=== PATIENT | female | born 1960 ===

== ENCOUNTER → 2019-12-01 08:59 | Outpatient (REF) | payer OTHER, SELFPAY | LOC: HO.SL 08:59 | PROVIDERS: PCP Internal Medicine Geriatric Medicine; Visit Provider Internal Medicine Geriatric Medicine | DX: I10 Essential (primary) hypertension (principal); R06.83 Snoring; R53.83 Other fatigue | CPT/HCPCS: 95806 ==

== ENCOUNTER 2019-12-20 11:23 | Outpatient (REF) | payer OTHER, SELFPAY ==
--- NOTE | 2019-12-20 11:26 | XR_ITS ---
EXAMINATION: XR KNEE AP STANDING CLINICAL INFORMATION: Knee pain. Bilateral arthritis. COMPARISON: Previous x-ray August 2018 TECHNIQUE: AP bilateral standing view of the knees was obtained. FINDINGS: Right: Bone alignment is normal. There is medial femoral tibial joint space narrowing. No fracture or dislocation is seen. Left: Bone alignment is normal. There is a cortical defect of the medial femoral condyle similar to previous exam. There is mild medial femoral tibial joint space narrowing. No fracture or dislocation is seen. There is no change from 2019 exam. XR/XR knee standing BI IMPRESSION: Right: Medial femoral tibial joint space narrowing. Left: Small cortical defect of the medial femoral condyle and mild medial femoral tibial joint space narrowing.
== END 2019-12-20 11:24 | disposition home or self-care (01) ==
LOC: HO.HOSX 11:23
PROVIDERS: PCP Internal Medicine Geriatric Medicine; Referring Provider Internal Medicine Geriatric Medicine; Visit Provider Orthopaedic Surgery
DX: M17.0 Bilateral primary osteoarthritis of knee (principal)
CPT/HCPCS: 20610; 73565; 99212; J1100

== ENCOUNTER 2019-12-24 09:36 | Outpatient (REF) | payer OTHER, SELFPAY ==
[2019-12-24 09:48] LABS: MANUAL DIFF FLAG NO
[2019-12-24 09:50] LABS: Basophils Absolute Auto 0.1 X10*3/uL (0.0-0.2); Basophils Percent Auto 0.5 % (0-2); Eosinophils Absolute Auto 0.2 X10*3/uL (0.0-0.4); Eosinophils Percent Auto 1.6 % (0-4); Hematocrit 45.1 % (37-47); Hemoglobin 14.6 g/dl (12.0-16.0); Imm Gran Abs Auto 0.03 X10*3/uL (0.00-0.03); Imm Gran Pct Auto 0.3 % (0.0-0.4); Lymphocytes Absolute Auto 3.7 X10*3/uL (1.2-4.9); Lymphocytes Percent Auto 33.3 % (20-40); Mean Corpuscular HGB Conc 32.4 g/dl (31.0-35.0); Mean Corpuscular Hemoglobin 28.8 pg (27.0-33.0); Mean Platelet Volume 10.8 fL (9.4-12.3); Monocytes Absolute Auto 0.7 X10*3/uL (0.1-1.2); Neutrophils Absolute Auto 6.4 X10*3/uL (2.0-8.3); Neutrophils Percent Auto 58.3 % (45-73); Platelet Count 307 X10*3/uL (160-400); Red Blood Count 5.07 X10*6/uL (4.20-5.50); Red Cell Distribution Width 15.7 % (11.0-16.0)
== END 2019-12-24 09:37 | disposition home or self-care (01) ==
LOC: HO.BBR 09:36
PROVIDERS: Visit Provider Internal Medicine Medical Oncology
DX: D75.1 Secondary polycythemia (principal)
CPT/HCPCS: 36415; 85025

== ENCOUNTER → 2019-12-29 14:35 | Outpatient (BNVA) | payer OTHER, SELFPAY | PROVIDERS: PCP Internal Medicine Geriatric Medicine; Referring Provider Internal Medicine Geriatric Medicine; Visit Provider Surgery | DX: Z01.818 Encounter for other preprocedural examination (principal) | CPT/HCPCS: 99202 ==

== ENCOUNTER 2020-01-05 09:03 | Outpatient (REF) | payer OTHER, SELFPAY ==
--- NOTE | 2020-01-05 09:08 | MM_ITS ---
EXAMINATION: MM SCREENING DIGITAL BREAST TOMOSYNTHESIS, BILATERAL CLINICAL INFORMATION: Screening. Asymptomatic. No prior breast surgery. The lifetime risk of breast cancer based on the Tyrer-Cuzick Model is 7%. COMPARISON: Mammography: 12/29/2018, 11/27/2017, 11/08/2016, 12/27/2015. TECHNIQUE: Digital breast tomosynthesis is performed in both the craniocaudal and mediolateral oblique views along with computer-aided detection (CAD). Synthesized 2D images are generated from the tomosynthesis. FINDINGS: The breasts are heterogeneously dense, which may obscure small masses (ACR BI-RADS breast composition Category c). Left breast shows no interval mass or architectural abnormality. There are scattered bilateral benign round and some vascular calcifications again seen. The bilateral axilla and skin contours are unremarkable. There is question of architectural distortion mid 9:00 right breast best appreciated on CC tomography. Patient will be recalled for additional imaging. MM/MM tomosynthesis screening BI IMPRESSION: 1. Right: Question of architectural distortion mid 9:00 position. 2. Left: No mammographic evidence of malignancy. ASSESSMENT: BI-RADS 0: Incomplete - Need Additional Imaging Evaluation RECOMMENDATION: 1. Additional views of the right breast (3D spot CC, 3D rolled CC x 2, 3D spot ML). 2. Targeted ultrasound if warranted after review of the additional views. 3. Radiology department staff will contact the patient for additional imaging. This patient's information was entered into a reminder system with a target due date for their next mammogram.
== END 2020-01-05 09:04 | disposition home or self-care (01) ==
LOC: HO.MAMMO 09:03
PROVIDERS: PCP Internal Medicine Geriatric Medicine; Visit Provider Internal Medicine Geriatric Medicine
DX: Z12.31 Encounter for screening mammogram for malignant neoplasm of breast (principal)
CPT/HCPCS: 77063; 77067

== ENCOUNTER 2020-01-21 06:38 | Day surgery (SDC) | payer OTHER, SELFPAY ==
[2020-01-17 15:16] VITALS: BMI 34.3
--- NOTE | 2020-01-20 10:15 | HO.ANESPROP2 ---
Documented by User: Blanka Hernández 01/20/20 10:16 HPI - Anesthesia Eval Consult details Narrative: 59yo F for Colonoscopy PMFSH Past Medical History Medical History Bilateral primary osteoarthritis of knee Blind Colon cancer screening Erythrocytosis GERD (gastroesophageal reflux disease) Hypertension Hypothyroidism Lumbar facet arthropathy Retinitis pigmentosa Family History Family History Father Throat cancer Mother No problems noted. 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 DIRECTOR) Alcohol intake: never Smoking Status: Never smoker Use of substances other than those prescribed or required for medical reasons: No Advance Directives: No Advance Directives Information Provided: No Advance Directives on File: No Current occupational status: disabled Current occupation: Right Handed Meds Allergies Allergy/AdvReac Type Severity Reaction Status Date / Time No Known Allergies Allergy Verified 01/17/20 15:11 Home Medications Medication Instructions Recorded Confirmed Type chlorthalidone 25 mg tablet 25 mg PO DAILY 12/17/19 01/17/20 History gabapentin 600 mg tablet 600 mg PO TID tab 12/17/19 01/17/20 History olopatadine 0.1 % eye drops 1 drp OPHTHALMIC (EYE) BID 12/17/19 01/17/20 History trazodone 100 mg tablet 100 mg PO DAILY 12/17/19 01/17/20 History albuterol sulfate 1 vial INHALATION QID 01/17/20 01/17/20 History fluticasone propionate [Flovent 1 puff INHALATION BID 01/17/20 01/17/20 History HFA] levothyroxine 1 tab PO DAILY 01/17/20 01/17/20 History montelukast 1 tab PO BEDTIME 01/17/20 01/17/20 History omeprazole 1 cap PO DAILY 01/17/20 01/17/20 History Exam Exam Date and Time: January 20, 2020 1015 Height,Weight and Vital Signs: Height 4 ft 11 in Weight 77.111 kg Assessment and Plan Assessment Anesthesia Assessment: Chart Reviewed Documented by User: Taylor Ash 01/21/20 07:26 PMFSH Past Medical History Medical History Bilateral primary osteoarthritis of knee Blind Colon cancer screening Erythrocytosis GERD (gastroesophageal reflux disease) Hypertension Hypothyroidism Lumbar facet arthropathy Retinitis pigmentosa Family History Family History Father Throat cancer Mother No problems noted. 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 DIRECTOR) Alcohol intake: never Smoking Status: Never smoker Use of substances other than those prescribed or required for medical reasons: No Advance Directives: No Advance Directives Information Provided: No Advance Directives on File: No Current occupational status: disabled Current occupation: Right Handed Meds Allergies Allergy/AdvReac Type Severity Reaction Status Date / Time No Known Allergies Allergy Verified 01/17/20 15:11 Home Medications Medication Instructions Recorded Confirmed Type chlorthalidone 25 mg tablet 25 mg PO DAILY 12/17/19 01/17/20 History gabapentin 600 mg tablet 600 mg PO TID tab 12/17/19 01/17/20 History olopatadine 0.1 % eye drops 1 drp OPHTHALMIC (EYE) BID 12/17/19 01/17/20 History trazodone 100 mg tablet 100 mg PO DAILY 12/17/19 01/17/20 History albuterol sulfate 1 vial INHALATION QID 01/17/20 01/17/20 History fluticasone propionate [Flovent 1 puff INHALATION BID 01/17/20 01/17/20 History HFA] levothyroxine 1 tab PO DAILY 01/17/20 01/17/20 History montelukast 1 tab PO BEDTIME 01/17/20 01/17/20 History omeprazole 1 cap PO DAILY 01/17/20 01/17/20 History Exam Airway Mallampati Class: II TM Dist: >3cm Neck ROM: Full Assessment and Plan Assessment Anesthesia Assessment: Anesthesia Plan Discussed and Chart Reviewed Final Anesthetic Review NPO: Yes ASA Class: II Final Preanesthetic Review: No Changes in Pt Med Stat, Meds/Allgs Chart Reviewed, Consent Obtained/Reviewed and Anes Risks/Benef Reviewed Patient Risk: Low Procedure Risk: Low Assessment/Block/Sedation in SS: Assess/Block/Sedation-SS Anesthetic Plan Anesthetic Plan: MAC: Disposition: Standard PACU
[2020-01-21 07:04] VITALS: BP 149/71; PULSE 88; RESP 18; TEMP 36.7; O2SAT 97
[2020-01-21] MEDS: Lactated Ringers 1,000 ML 100 ML IVCONT (07:04)
--- NOTE | 2020-01-21 07:22 | MHC.SHP ---
Pre-Procedural Eval Section B Chief Complaint: Screening Allergies: Allergies Allergy/AdvReac Type Severity Reaction Status Date / Time No Known Allergies Allergy Verified 01/17/20 15:11 Plan Patient has been examined and remains a candidate for the planned procedure
[2020-01-21 07:58] VITALS: BP 121/63; PULSE 89; RESP 16; TEMP 37.3; O2SAT 96
--- NOTE | 2020-01-21 08:01 | PM.OP ---
Brief Operative Note Date of Service: 01/21/20 Pre-op diagnosis: colon ca screen Post-op diagnosis: other (diverticulosis, small polyps, hemorrhoids) Surgeon: Shyam Liz MD Anesthesia: MAC Estimated blood loss (mL): 0 Pathology: other (polyps) Condition: stable Disposition: PACU
[2020-01-21 08:12] VITALS: BP 137/74; PULSE 80; RESP 16; TEMP 36.3; O2SAT 96
--- NOTE | 2020-01-21 08:29 | HO.POSTANES ---
Post Anesthesia Evaluation Post Anesthesia Evaluation Vital Signs: Vital Signs Temp Pulse Resp BP Pulse Ox 01/21/20 08:12 97.3 F 80 16 137/74 96 01/21/20 07:58 99.1 F 89 16 121/63 96 01/21/20 07:04 98.0 F 88 18 149/71 H 97 Anesthesia: Monitored Mental Status: Awake Pain Control: Satisfactory Nausea/Vomiting: None Hydration: Adequate Anesthesia-Related Issues: No Anes. Related Issues
--- NOTE | 2020-01-21 08:54 | OP_ITS ---
SURGEON: Shyam Liz MD INDICATIONS: The patient is a 59-year-old female, referred for screening colonoscopy. She understood the technique of the procedure. She is aware of the risks, benefits, and alternatives. Her last colonoscopy was 10 years ago. PREOPERATIVE DIAGNOSIS: Colon cancer screening. POSTOPERATIVE DIAGNOSIS: PROCEDURE PERFORMED: Colonoscopy, polypectomy using cold forceps x3. ESTIMATED BLOOD LOSS: COMPLICATIONS: ANESTHESIA: ASSISTANTS: SPECIMENS: POSTOPERATIVE DIAGNOSES: 1. Occasional diverticula in the sigmoid. 2. Three small polyps at level 13 to 15 cm. 3. Internal hemorrhoids. DESCRIPTION OF PROCEDURE: She was brought to the operating room, placed in left lateral decubitus position under monitored anesthesia care. A full digital rectal exam was done. She had some palpable internal hemorrhoidal columns. The tip of the Olympus colonoscope was introduced gently through the anal orifice and advanced with insufflation all the way to the cecum. The cecum was intubated. The cecum was identified by visualization of the ileocecal valve as well as the appendiceal orifice. The cecal mucosa was unremarkable. The scope was gradually withdrawn with careful examination of the entire colonic mucosa being done with scope withdrawal. The patient had good bowel prep, so it was unlikely that any lesion may have been missed. There was occasional diverticula in the sigmoid. There was note of three small polyps about 2 to 3 mm in size seen at level 13 to 15 cm. All of these were removed using multiple bites of cold forceps. The rectum was reached and this was unremarkable. The anal canal revealed prominent internal and external hemorrhoids. The scope was then withdrawn completely with de-sufflation. The patient tolerated the procedure well. There were no complications noted. Depending on the path report, I would probably recommend another colonoscopy in the next 10 years. MD NOEL Alcocer/BRYCE / [id number]
== END 2020-01-21 08:30 | disposition home or self-care (01) ==
PROVIDERS: PCP Internal Medicine Geriatric Medicine; Visit Provider Surgery
PROC: 0DJD8ZZ Inspection of Lower Intestinal Tract, Via Natural or Artificial Opening Endoscopic (ICD-10-PCS; CPT 45378; principal; 2020-01-21 07:30)
DX: Z12.11 Encounter for screening for malignant neoplasm of colon (principal); K63.5 Polyp of colon; K57.30 Diverticulosis of large intestine without perforation or abscess without bleeding; K64.8 Other hemorrhoids
CPT/HCPCS: 45380; 88305; J2405; J3010

== ENCOUNTER 2020-01-26 14:16 | Outpatient (REF) | payer OTHER, SELFPAY ==
--- NOTE | 2020-01-26 14:23 | MM_ITS ---
EXAMINATION: MM DIAGNOSTIC DIGITAL BREAST TOMOSYNTHESIS, RIGHT US DIAGNOSTIC ULTRASOUND BREAST, RIGHT CLINICAL INFORMATION: Recall from screening for question of architectural distortion mid 3:00 right breast. COMPARISON: Mammography: 01/05/2020, 12/29/2018, 11/27/2017, and 11/08/2016, 12/27/2015, 12/02/2014 TECHNIQUE: Digital breast tomosynthesis is performed. 2D images are generated from the tomosynthesis. The following views are obtained: Spot CC, rolled CC x2, spot ML x2. Ultrasound right breast is targeted to the upper inner breast using grayscale imaging and color Doppler without and with harmonics. FINDINGS: The breasts are heterogeneously dense, which may obscure small masses (ACR BI-RADS breast composition Category c). The additional views confirm area of architectural changes medial right breast between 1:00 and 3:00 position. Ultrasound demonstrates scattered shadowing upper inner right breast without dominant focality to confirm exact site of mammographic concern. Results are discussed with the patient and her daughter at time of visit. Patient provides no prior history right breast surgery or significant right breast trauma. The right breast findings are suspicious. Differential considerations include radial scar as well as malignancy. 3-D stereotactic sampling is recommended. MM/MM tomosynthesis added views R IMPRESSION: 1. Persistent architectural abnormality upper inner right breast on additional mammographic views. 2. Scattered shadowing right breast without definitive focality to allow for reliable ultrasound correlate. ASSESSMENT: BI-RADS 4: Suspicious RECOMMENDATION: 3-D stereotactic biopsy right breast.
--- NOTE | 2020-01-26 14:26 | US_ITS ---
EXAMINATION: MM DIAGNOSTIC DIGITAL BREAST TOMOSYNTHESIS, RIGHT US DIAGNOSTIC ULTRASOUND BREAST, RIGHT CLINICAL INFORMATION: Recall from screening for question of architectural distortion mid 3:00 right breast. COMPARISON: Mammography: 01/05/2020, 12/29/2018, 11/27/2017, and 11/08/2016, 12/27/2015, 12/02/2014 TECHNIQUE: Digital breast tomosynthesis is performed. 2D images are generated from the tomosynthesis. The following views are obtained: Spot CC, rolled CC x2, spot ML x2. Ultrasound right breast is targeted to the upper inner breast using grayscale imaging and color Doppler without and with harmonics. FINDINGS: The breasts are heterogeneously dense, which may obscure small masses (ACR BI-RADS breast composition Category c). The additional views confirm area of architectural changes medial right breast between 1:00 and 3:00 position. Ultrasound demonstrates scattered shadowing upper inner right breast without dominant focality to confirm exact site of mammographic concern. Results are discussed with the patient and her daughter at time of visit. Patient provides no prior history right breast surgery or significant right breast trauma. The right breast findings are suspicious. Differential considerations include radial scar as well as malignancy. 3-D stereotactic sampling is recommended. US/US breast RT limited IMPRESSION: 1. Persistent architectural abnormality upper inner right breast on additional mammographic views. 2. Scattered shadowing right breast without definitive focality to allow for reliable ultrasound correlate. ASSESSMENT: BI-RADS 4: Suspicious RECOMMENDATION: 3-D stereotactic biopsy right breast.
== END 2020-01-26 14:17 | disposition home or self-care (01) ==
LOC: HO.MAMMO 14:16
PROVIDERS: PCP Internal Medicine Geriatric Medicine; Visit Provider Internal Medicine Geriatric Medicine
DX: N64.89 Other specified disorders of breast (principal)
CPT/HCPCS: 76642; 77061; 77065

== ENCOUNTER → 2020-02-02 08:59 | Outpatient (BNVA) | payer OTHER, SELFPAY | PROVIDERS: PCP Internal Medicine Geriatric Medicine; Visit Provider Surgery | DX: K63.5 Polyp of colon (principal); K57.90 Diverticulosis of intestine, part unspecified, without perforation or abscess without bleeding; K64.9 Unspecified hemorrhoids; Z98.890 Other specified postprocedural states | CPT/HCPCS: 99212 ==

== ENCOUNTER → 2020-02-15 14:31 | Outpatient (BNVA) | payer OTHER, SELFPAY | PROVIDERS: PCP Internal Medicine Geriatric Medicine; Visit Provider Surgery | DX: R92.8 Other abnormal and inconclusive findings on diagnostic imaging of breast (principal) | CPT/HCPCS: 99212 ==

== ENCOUNTER 2020-02-16 10:31 | Outpatient (REF) | payer OTHER, SELFPAY ==
--- NOTE | 2020-02-16 10:36 | MM_ITS ---
EXAMINATION: STEREOTACTIC TOMOSYNTHESIS-GUIDED VACUUM-ASSISTED BREAST BIOPSY, RIGHT SPECIMEN RADIOGRAPH, RIGHT POST PROCEDURE DIGITAL BREAST TOMOSYNTHESIS, RIGHT CLINICAL INFORMATION: Subtle architectural abnormality upper inner right breast. COMPARISON: Mammography 01/05/2020, 01/26/2020, targeted right breast ultrasound 01/26/2020. TECHNIQUE/PROCEDURE: Informed consent was obtained from the patient after discussion of the benefits, risks, and alternatives to biopsy today. Patient appeared to understand. Gave opportunity for questions. Patient signed consent form. BIOPSY TABLE: [employer]one Biopsy System. LESION: Subtle architectural distortion upper inner right breast. LOCAL ANESTHESIA: 8 mL 1% lidocaine; 10 mL 1% lidocaine with epinephrine. DERMATOTOMY: Single skin gary dermatotomy performed. NEEDLE: [employer] 9-gauge vacuum assisted core biopsy device. APPROACH: craniocaudal. TARGETING: Combination of digital breast tomosynthesis and stereotactic digital mammography used for targeting. CORES: 8. CLIP: [employer] T-shaped marker. SPECIMEN RADIOGRAPH: Specimen radiograph is taken in separate room using digital mammography. There are scattered fibroglandular densities in the cores. POST PROCEDURE UNILATERAL DIGITAL MAMMOGRAM: The post biopsy mammogram is performed in separate room using separate digital breast tomosynthesis equipment from the biopsy procedure. CC and ML views are obtained. Synthesized 2-D images are generated from the tomography. The breasts are heterogeneously dense, which may obscure small masses (breast composition category: c). The clip marker is in expected position. No gross hematoma. The patient tolerated the procedure well. No immediate complications. Home instructions reviewed with the patient. Final pathology results are pending. MM/MM stereotactic biopsy RT IMPRESSION: 1. Digital tomosynthesis-guided core biopsy right breast with clip placement. 2. Specimen radiograph taken and post procedure mammogram. There is satisfactory positioning of the biopsy clip. 3. Final pathology results pending. An addendum report will be issued.
== END 2020-02-16 10:32 | disposition home or self-care (01) ==
LOC: HO.MAMMO 10:31
PROVIDERS: PCP Internal Medicine Geriatric Medicine; Visit Provider Surgery
DX: R92.8 Other abnormal and inconclusive findings on diagnostic imaging of breast (principal)
CPT/HCPCS: 19081; 88305; 88341; 88342; 88360; A4648

== ENCOUNTER → 2020-02-24 13:47 | Outpatient (BNVA) | payer OTHER, SELFPAY ==
--- NOTE | 2020-02-28 14:43 | PM.EVENT ---
Event Note Date of Service: 02/28/20 Event Note: Her daughter, Angelica Carver, called today to let us know that her mother has decided that she would prefer to undergo a mastectomy. She does not want to have to undergo radiation therapy after surgery. Also, she prefers to go home on the day of surgery if at all possible. Her daughter, Ms. Carver, is able to assist with dressing changes and drain management. We will adjust the surgical booking to a right total mastectomy and right axillary sentinel lymph node biopsy.
== END ==
PROVIDERS: PCP Internal Medicine Geriatric Medicine; Visit Provider Surgery
DX: C50.911 Malignant neoplasm of unspecified site of right female breast (principal)
CPT/HCPCS: 99212

== ENCOUNTER 2020-03-02 10:33 | Day surgery (SDC) | payer OTHER, SELFPAY ==
[2020-03-01 10:21] VITALS: BMI 35.6
--- NOTE | 2020-03-01 13:23 | HO.ANESPROP2 ---
Documented by User: Blanka Hernández 03/01/20 13:26 HPI - Anesthesia Eval Consult details Narrative: 59yo F for R mastectomy, sentinal node PMFSH Past Medical History Medical History Bilateral primary osteoarthritis of knee Blind Colon cancer screening Diverticulosis Erythrocytosis GERD (gastroesophageal reflux disease) Hemorrhoids Hyperplastic colon polyp Hypertension Hypothyroidism Lumbar facet arthropathy Retinitis pigmentosa Family History Family History Father Throat cancer Mother No problems noted. Brother Gastric cancer Brother Kidney cancer, primary, with metastasis from kidney to other site Surgical History Surgical History Hx of colonoscopy Social History Social History Household Members: None Alcohol intake: never Smoking Status: Never smoker Second Hand Smoke Exposure: No Use of substances other than those prescribed or required for medical reasons: No Advance Directives: No Advance Directives Information Provided: No Advance Directives on File: No Current occupational status: disabled Current occupation: Right Handed Meds Allergies Allergy/AdvReac Type Severity Reaction Status Date / Time No Known Allergies Allergy Verified 02/24/20 13:56 Home Medications Medication Instructions Recorded Confirmed Type chlorthalidone 25 mg tablet 25 mg PO DAILY 12/17/19 02/24/20 History gabapentin 600 mg tablet 600 mg PO TID tab 12/17/19 02/24/20 History olopatadine 0.1 % eye drops 1 drp OPHTHALMIC (EYE) BID 12/17/19 02/24/20 History trazodone 100 mg tablet 100 mg PO DAILY 12/17/19 02/24/20 History albuterol sulfate 1 vial INHALATION QID 01/17/20 02/24/20 History fluticasone propionate [Flovent 1 puff INHALATION BID 01/17/20 02/24/20 History HFA] levothyroxine 1 tab PO DAILY 01/17/20 02/24/20 History montelukast 1 tab PO BEDTIME 01/17/20 02/24/20 History omeprazole 1 cap PO DAILY 01/17/20 02/24/20 History Exam Exam Date and Time: March 01, 2020 1323 Height,Weight and Vital Signs: Height 4 ft 11 in Weight 80 kg Pertinent Lab Results Pertinent Lab Results: Laboratory Tests 12/24/19 09:45 WBC 11.0 H Hgb 14.6 Hct 45.1 Plt Count 307 Assessment and Plan Assessment Anesthesia Assessment: Chart Reviewed Documented by User: Callum Muir MD 03/02/20 13:39 PMFSH Past Medical History Medical History Bilateral primary osteoarthritis of knee Blind Colon cancer screening Diverticulosis Erythrocytosis GERD (gastroesophageal reflux disease) Hemorrhoids Hyperplastic colon polyp Hypertension Hypothyroidism Lumbar facet arthropathy Retinitis pigmentosa Family History Family History Father Throat cancer Mother No problems noted. Brother Gastric cancer Brother Kidney cancer, primary, with metastasis from kidney to other site Surgical History Surgical History Hx of colonoscopy Social History Social History Household Members: None Alcohol intake: never Smoking Status: Never smoker Second Hand Smoke Exposure: No Use of substances other than those prescribed or required for medical reasons: No Advance Directives: No Advance Directives Information Provided: No Advance Directives on File: No Current occupational status: disabled Current occupation: Right Handed Meds Allergies Allergy/AdvReac Type Severity Reaction Status Date / Time No Known Allergies Allergy Verified 02/24/20 13:56 Home Medications Medication Instructions Recorded Confirmed Type chlorthalidone 25 mg tablet 25 mg PO DAILY 12/17/19 02/24/20 History gabapentin 600 mg tablet 600 mg PO TID tab 12/17/19 02/24/20 History olopatadine 0.1 % eye drops 1 drp OPHTHALMIC (EYE) BID 12/17/19 02/24/20 History trazodone 100 mg tablet 100 mg PO DAILY 12/17/19 02/24/20 History albuterol sulfate 1 vial INHALATION QID 01/17/20 02/24/20 History fluticasone propionate [Flovent 1 puff INHALATION BID 01/17/20 02/24/20 History HFA] levothyroxine 1 tab PO DAILY 01/17/20 02/24/20 History montelukast 1 tab PO BEDTIME 01/17/20 02/24/20 History omeprazole 1 cap PO DAILY 01/17/20 02/24/20 History Exam Airway Mallampati Class: II TM Dist: >3cm Neck ROM: Full Loose/Missing/Broken Teeth: Yes (Few molars missing) Heart: RRR Lungs: NL Other: AO Assessment and Plan Assessment Anesthesia Assessment: Anesthesia Plan Discussed and Chart Reviewed Final Anesthetic Review NPO: Yes ASA Class: III Final Preanesthetic Review: No Changes in Pt Med Stat, Meds/Allgs Chart Reviewed, Consent Obtained/Reviewed and Anes Risks/Benef Reviewed Patient Risk: Intermediate Procedure Risk: Low Anesthetic Plan Anesthetic Plan: GA and Regional Block Disposition: Standard PACU
[2020-03-02] VITALS (10 sets, daily range): BP systolic 115–146; BP diastolic 60–80; PULSE 80–101; RESP 16–19; TEMP 36.5–36.7; O2SAT 95–100
--- NOTE | 2020-03-02 | NM_ITS ---
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 COMPARISON: Mammography 01/26/2020, stereotactic biopsy 02/16/2020 TECHNIQUE: Informed consent was obtained prior to the exam. Lidocaine gel administered to areola within 60 minutes of the procedure. Technetium 99m-Lymphoseek 0.5 mCi was divided into 4 syringes with intradermal administration at 4 quadrants around the areola. The patient tolerated the procedure well. Imaging is performed in multiple views at 20 minutes and 50 minutes postinjection. FINDINGS: There is strong activity around the areola. There is no activity seen in the axilla or internal mammary chain. NM/NM sentinel node w imaging IMPRESSION: Status post breast radionuclide lymphoscintigraphy for sentinel lymph node mapping. No patricia activity demonstrated 50 minutes postinjection.
[2020-03-02] MEDS: Lactated Ringers 1,000 ML 100 ML IVCONT (11:22)
[2020-03-02] MEDS: ceFAZolin Sodium/Dextrose,Iso 2 GM/50 ML PIGGYBACK IV (11:22)
[2020-03-02] MEDS: Lidocaine 4 % Cream KIT 1 APPL TOPICAL (11:23)
--- NOTE | 2020-03-02 13:41 | MHC.SHP ---
Pre-Procedural Eval Section A The patient is an INPATIENT: No Changes since office visit: No Cold of Flu in the past 2 weeks, No New Medical Problems and No Changes in Medication The History & Physical has been completed within 30 days and I have reviewed it.: Yes Section B Chief Complaint: Cancer of right breast Allergies: Allergies Allergy/AdvReac Type Severity Reaction Status Date / Time No Known Allergies Allergy Verified 02/24/20 13:56 Plan I have reviewed the history and physical and performed a pertinent physical examination on my patient. No changes have occurred unless specified.
[2020-03-02] MEDS: ondansetron HCL 4 MG/2 ML VIAL IVPUSH (16:45)
--- NOTE | 2020-03-02 17:58 | P.OP_ITS ---
Operative Note Operative Note Date of Service: 03/02/20 Narrative: Preoperative diagnosis: Right breast carcinoma Postoperative diagnosis: Same Procedure: Right total mastectomy and right axillary sentinel node biopsy Anesthesia: General laryngeal mask and pectoral block Dielectric Press Operator: Sunni Smith PA-C Estimated blood loss: 75 cc Urine output: 200 cc Specimen: A-right axillary sentinel node 1.; B-right breast Drains: 1 10 mm Jaret-Bettencourt Immediate complications: None Indications Ms. Saravia is a 59-year-old who has a recent diagnosis of infiltrating ductal carcinoma of the right breast, clinical stage I. After reviewing treatment options, she elected to proceed with right total mastectomy and right axillary sentinel node biopsy with axillary dissection if needed. Procedure in detail: With the patient in the supine position after induction of adequate general anesthesia, time-out procedure was performed. She had undergone injection of radioisotope and scanning preoperatively. No activity was demonstrated on pre operative scanning. Injection of Lymphazurin was therefore planned. The right breast, axilla, surrounding chest wall, shoulder and upper arm were prepped with ChloraPrep and were draped sterilely. Anatomic landmarks and incision lines were marked. The probe was then employed to scan the axilla. No areas of significantly elevated count were identified. Lymphazurin injection was carried out. 1 cc was injected into the it subcutaneous tissues at the areolar border at 06:00 o'clock, 09:00 o'clock and 12:00 o'clock. The breast was massaged for 3 minutes. An elliptical incision was then made centrally in the right breast with transverse orientation and was carried into the subcutaneous tissues. Skin flaps were raised circumferentially. Bleeding was controlled using the electrosurgical pencil and 3-0 Polysorb ties. Dissection was carried to the sternum medially, the inferior margin of the clavicle superiorly just below the inframammary fold inferiorly and to the latissimus dorsi laterally. The axillary tissues were then rescanned with the probe. An area of significantly elevated count was identified. Using a technique of alternating scanning and dissection, a blue lymph node with a blue lymphatic leading to it was identified. This lymph node was excised and had a count of 1371. It was sent for touch prep. Touch prep was benign. Rescanning of the axilla did not reveal any additional areas with significantly elevated count and no additional blue lymphatics were noted at the base of the axilla. The breast was then elevated from the chest wall moving from medial to lateral. Again, bleeding was controlled using the electrosurgical pencil and 3-0 Polysorb ties. The breast was marked for orientation and was sent for permanent analysis. The wound was copiously irrigated with saline solution. Minimal bleeding was noted along the chest wall and flaps. This was controlled using the electrosurgical pencil. A 10 mm flat drain was then brought out inferolaterally and was sutured in place with 3 0 nylon. It was placed across the chest wall. The midpoint of the incision was then reapproximated with a single suture of 2 0 Polysorb. Laterally, there was some redundant tissue and this was trimmed using ?fish tail? technique. Bleeding was controlled using the electrosurgical pencil. Subcutaneous tissues were then reapproximated with interrupted sutures of 2 0 Polysorb. Skin was closed using running subcuticular sutures of 4-0 Polysorb. Steri-Strips and dry sterile dressings were applied followed by a breast binder. Sponge and instrument counts were correct. She tolerated the procedure well and was transported to the recovery room in stable condition. There were no immediate complications. Breast [place] Node Biopsy Substrate(s) used for sentinel node biopsy in the non-neoadjuvant setting: Dye and Radiotracer All colored nodes or non-colored nodes present at the end of a dye filled lymphatic channel were removed, if dye was used as the substrate for localization: Yes All significantly radioactive nodes were removed, if radionuclide was used as the substrate for localization: Yes All palpably suspicious nodes were removed, if present: N/A (None present) If clips were placed in pathology-involved nodes, those nodes were identified and removed: N/A General Surg. - Synoptic Notes Breast [place] Node Biopsy Substrate(s) used for sentinel node biopsy in the non-neoadjuvant setting: Dye and Radiotracer All colored nodes or non-colored nodes present at the end of a dye filled lymphatic channel were removed, if dye was used as the substrate for localization: Yes All significantly radioactive nodes were removed, if radionuclide was used as the substrate for localization: Yes All palpably suspicious nodes were removed, if present: N/A (None present) If clips were placed in pathology-involved nodes, those nodes were identified and removed: N/A
== END 2020-03-02 12:00 | disposition home or self-care (01) ==
PROVIDERS: PCP Internal Medicine Geriatric Medicine; Visit Provider Surgery
PROC: (CPT 19303; 2020-03-02 13:00)
DX: C50.911 Malignant neoplasm of unspecified site of right female breast (principal); Z17.0 Estrogen receptor positive status [ER+]; I10 Essential (primary) hypertension; Z79.899 Other long term (current) drug therapy
CPT/HCPCS: 19303; 38525; 38900; 78195; 88307; 88309; 88333; 88341; 88342; A9520; J0690; J1100; J1170; J2250; J2405; J3010; Q9968

== ENCOUNTER → 2020-03-08 13:58 | Outpatient (BNVA) | payer OTHER, SELFPAY | PROVIDERS: PCP Internal Medicine Geriatric Medicine; Visit Provider Surgery | DX: C50.911 Malignant neoplasm of unspecified site of right female breast (principal) | CPT/HCPCS: 99212 ==

== ENCOUNTER → 2020-03-22 15:17 | Outpatient (BNVA) | payer OTHER, SELFPAY | PROVIDERS: PCP Internal Medicine Geriatric Medicine; Visit Provider Surgery | DX: C50.911 Malignant neoplasm of unspecified site of right female breast (principal) | CPT/HCPCS: 99212 ==

== ENCOUNTER 2020-04-06 14:55 | Outpatient (REF) | payer OTHER, SELFPAY ==
--- NOTE | ~2020-04-06 | MM_ITS ---
EXAMINATION: BONE DENSITOMETRY CLINICAL INDICATION: Osteopenia. COMPARISON: This is the patient's baseline examination. TECHNIQUE: Using a Triloq DXA System (software version: 13.1) manufactured by [employer], dual-energy x-ray absorptiometry was performed of the lumbar spine and left hip. The images are of good technical quality. Summary results are attached. FINDINGS: AP SPINE L2-L3 (excluding L1 and L4): The data of L1-L4 has been changed to exclude the L1 and L4 vertebral bodies, because degenerative sclerosis at these levels may cause overestimation of lumbar spine density. BMD 1.074 g/cm2, Z-score -0.2, T-score -1.0, normal. LEFT FEMUR, NECK: BMD 0.849 g/cm2, Z-score -0.3, T-score -1.4, osteopenia. LEFT FEMUR, TOTAL: BMD 1.016 g/cm2, Z-score 0.8, T-score 0.1, normal. IDENTIFIED RISK FACTORS: Menopause. HISTORY OF FRACTURE: None listed. MEDICATIONS: None listed. MM/XR DEXA axial skeleton IMPRESSION: 1. DIAGNOSIS: Osteopenia based on the lowest T-score value of -1.4 in the femoral neck applying World Health Organization criteria. 2. 10-YEAR FRACTURE RISK PREDICTION, FRAX: Major osteoporotic fracture (clinical spine, forearm, hip or shoulder) 4.1%. Hip fracture 0.3%. 3. Treatment Recommendations: NOF guidelines recommend consideration for treatment in postmenopausal women and men age 50 and older presenting with the following: -A hip or vertebral (clinical or morphometric) fracture. -T-score less than or equal to -2.5 at the femoral neck or spine after appropriate evaluation to exclude secondary causes. -Low bone mass at the hip or spine and a 10-year fracture probability by FRAX of greater than or equal to 3% for hip fracture or greater than or equal to 20% for major osteoporotic fracture based on the [place] adapted WHO algorithm. 4. Other Recommendations: All treatment decisions require clinical judgment and consideration of individual patient factors, including patient preferences, comorbidities, previous drug use, risk factors not captured in the FRAX model (e.g. frailty, falls, vitamin D deficiency, increased bone turnover, interval significant decline in bone density) and possible under or overestimation of fracture risk by FRAX. Additional medical evaluation for secondary cause of low bone mineral density may be appropriate. FUTURE SCAN RECOMMENDATION: People with diagnosed cases of osteoporosis or at high risk for fracture should have regular bone mineral density tests. For patients eligible for Medicare, routine testing is allowed once every 2 years. The testing frequency can be increased to one year for patients who have rapidly progressing disease, those who are receiving or discontinuing medical therapy to restore bone mass, or have additional risk factors.
== END 2020-04-06 14:56 | disposition home or self-care (01) ==
LOC: HO.MAMMO 14:55
PROVIDERS: PCP Internal Medicine Geriatric Medicine; Visit Provider Internal Medicine Medical Oncology
DX: Z13.820 Encounter for screening for osteoporosis (principal); M85.80 Other specified disorders of bone density and structure, unspecified site; Z78.0 Asymptomatic menopausal state
CPT/HCPCS: 77080; 77081

== ENCOUNTER → 2020-04-14 14:30 | Outpatient (BNV) | payer OTHER, SELFPAY | PROVIDERS: PCP Internal Medicine Geriatric Medicine; Visit Provider Internal Medicine Medical Oncology | DX: C50.911 Malignant neoplasm of unspecified site of right female breast (principal) | CPT/HCPCS: 99213; 99214 ==

== ENCOUNTER → 2020-07-31 14:34 | Outpatient (BNVA) | payer OTHER, SELFPAY | PROVIDERS: PCP Internal Medicine Geriatric Medicine; Visit Provider Internal Medicine | DX: M47.817 Spondylosis without myelopathy or radiculopathy, lumbosacral region (principal); M17.0 Bilateral primary osteoarthritis of knee | CPT/HCPCS: 99202 ==

== ENCOUNTER 2020-08-25 15:52 | Outpatient (REF) | payer OTHER, SELFPAY ==
--- NOTE | ~2020-08-25 | MR_ITS ---
EXAMINATION: MR LUMBAR SPINE WITHOUT CONTRAST CLINICAL INFORMATION: 60-year-old with low back pain and bilateral sciatica. COMPARISON: 10/25/2015 MRI. TECHNIQUE: MRI of the lumbar spine was obtained using routine sequences without contrast. FINDINGS: Coronal Alignment: Normal. Sagittal Alignment: Normal. Lumbosacral Junction: Normal. Vertebral Bodies: Normal height. Bone Marrow: No significant marrow-replacing process or bone marrow edema. Conus Medullaris: Terminates at L2. Morphology and signal is normal. Intradural Nerve Roots: Within normal limits. L5-S1: Severe disc space height loss, disc desiccation, Schmorl's nodes and type II degenerative marrow signal changes along the endplates are stable. There is diffuse disc bulging with anterolateral spondylosis and posterolateral disc osteophyte complex on the right, similar in appearance to the previous exam with moderate bilateral facet arthropathy and mild ligamentum flavum thickening, unchanged in appearance. No significant canal stenosis. Mild right-sided neural foraminal stenosis is noted, stable in appearance without definite neural impingement. L4-L5: Moderate disc space height loss is noted, slightly progressed from previous exam. Diffuse disc bulging, asymmetric to the right is slightly more prominent on current study with [id number] flattening of the dural sac. Ligamentum flavum thickening is similar to the previous study with mild facet arthropathy, largely unchanged. There is mild narrowing of the subarticular zones bilaterally which has developed since the previous exam without significant central spinal canal stenosis. Disc bulging encroaches on the inferior neural foramina, asymmetric to the right without definite neural impingement and only minimal right-sided foraminal narrowing stable in appearance. L3-L4: Disc space height is well maintained, stable in appearance, with normal disc signal and contours. No significant disc bulge or herniation and no significant facet arthropathy, canal or neuroforaminal stenosis. L2-L3: Disc space height is stable in appearance with normal disc contour without disc bulge or herniation and no significant spondylosis, facet arthropathy, canal or neuroforaminal stenosis, unchanged. L1-L2: Disc space height is well maintained, stable in appearance. There is noted tiny central disc protrusion at this level is not currently visualized. No disc bulge or herniation and no significant facet arthrosis, spondylosis, canal or neuroforaminal stenosis. T12-L1: Abojladg-qh-tcefwp disc space height loss slightly progressed from previous exam, with Schmorl's nodes and type II degenerative marrow signal changes along the endplates, progressed from previous study. Mild anterior marginal spondylosis is slightly progressed. Mild posterior disc osteophyte complex is similar to the previous exam. Minor left-sided facet arthrosis at is noted. No significant canal or neuroforaminal stenosis. Paraspinal/Retroperitoneal: The paravertebral soft tissues appear unremarkable. MR/MR lumbar spine wo con IMPRESSION: 1. Severe discogenic degenerative change at L5-S1 with disc bulging and spondylosis with facet arthropathy, stable in appearance, with stable mild right-sided neural foraminal stenosis at this level. No definite neural impingement. 2. Slight progression of disc degenerative change at L4-L5, with more prominent disc bulging at this level asymmetric to the right, now with mild narrowing of the subarticular zones bilaterally at this level and stable facet arthropathy. Minimal right-sided neural foraminal narrowing. 3. Bficnrxr-qv-ioieup discogenic degenerative changes at T12-L1 with a stable small posterior disc osteophyte complex and mild progression of disc space height loss at this level. Resolution of previously noted tiny central disc protrusion at L1-L2.
--- NOTE | ~2020-08-25 | XR_ITS ---
EXAMINATION: XR LUMBOSACRAL SPINE WITH OBLIQUES CLINICAL INFORMATION: Lumbar radiculopathy. COMPARISON: Lumbar spine radiographs dated 11/03/2019. TECHNIQUE: AP, lateral, coned-down, and bilateral oblique views of the lumbosacral spine. FINDINGS: Normal vertebral body alignment. The lumbar lordosis is maintained. No acute fracture or subluxation. No loss of vertebral body height. Multilevel loss of intervertebral disc height with tiny anterior endplate osteophyte, most prominent at L5-S1. Bilateral facet arthropathy at L5-S1. Findings are similar when compared to the prior radiographs. XR/XR lumbar spine 4V min IMPRESSION: Multilevel degenerative disc disease, most prominent at L5-S1 where there is bilateral facet arthropathy. Findings are similar when compared to the prior radiographs.
== END 2020-08-25 15:53 | disposition home or self-care (01) ==
LOC: HO.MRI 15:52
PROVIDERS: PCP Internal Medicine Geriatric Medicine; Visit Provider Anesthesiology
DX: M47.817 Spondylosis without myelopathy or radiculopathy, lumbosacral region (principal)
CPT/HCPCS: 72110; 72148

== ENCOUNTER 2020-09-06 06:32 | Outpatient (REF) | payer OTHER, SELFPAY ==
--- NOTE | ~2020-09-06 | FL_ITS ---
EXAMINATION: XR FLUOROSCOPY WITH IMAGES CLINICAL INFORMATION: Right L4, L5 TF the SI. Low back pain. COMPARISON: None. TECHNIQUE: Fluoroscopy performed by Asya Muir. Fluoroscopy time: 0.6 minutes DAP: 6.24 Gycm2 Images: 2 FINDINGS: There are needles positioned in the posterior pleural space at L4-L5 and is L5-S1 disc levels. There is minimal contrast visualized. The vertebral heights and alignment is normal. Mild loss of L5-S1 disc height is seen. FL/FL guidance in treatment room IMPRESSION: Fluoroscopy was provided for pain management to the referring physician.
--- NOTE | ~2020-09-06 | FL_ITS ---
EXAMINATION: XR FLUOROSCOPY WITH IMAGES CLINICAL INFORMATION: Bilateral primary osteoarthritis of knee. COMPARISON: None. TECHNIQUE: Fluoroscopy performed by at least Taylor. Fluoroscopy time: 0.2 minus minutes DAP: 0.5 and 5 Gycm2 Images: 3 FINDINGS: There are needles positioned along the medial and lateral distal femur and medial proximal tibia for pain management. There is mild loss of medial and patellofemoral compartment joint space. FL/FL guidance in treatment room IMPRESSION: Fluoroscopy was provided for pain management.
== END 2020-09-06 06:33 | disposition home or self-care (01) ==
LOC: HO.RADIR 06:32
PROVIDERS: Visit Provider Internal Medicine
DX: M47.817 Spondylosis without myelopathy or radiculopathy, lumbosacral region (principal); M54.16 Radiculopathy, lumbar region; Z79.899 Other long term (current) drug therapy
CPT/HCPCS: 64483; 64484; J1100; Q9967

== ENCOUNTER → 2020-09-18 15:47 | Outpatient (BNVA) | payer OTHER, SELFPAY | PROVIDERS: PCP Internal Medicine Geriatric Medicine; Referring Provider Internal Medicine Geriatric Medicine; Visit Provider Surgery | DX: C50.919 Malignant neoplasm of unspecified site of unspecified female breast (principal) | CPT/HCPCS: 99212 ==

== ENCOUNTER → 2020-10-06 12:00 | Outpatient (BNVA) | payer OTHER, SELFPAY | PROVIDERS: PCP Internal Medicine Geriatric Medicine; Visit Provider Internal Medicine | DX: M54.16 Radiculopathy, lumbar region (principal); M17.0 Bilateral primary osteoarthritis of knee | CPT/HCPCS: Q3014 ==

== ENCOUNTER 2020-11-01 06:56 | Outpatient (REF) | payer OTHER, SELFPAY | END 2020-11-01 06:57 | disposition home or self-care (01) | LOC: HO.RADIR 06:56 | PROVIDERS: Visit Provider Internal Medicine | DX: M17.0 Bilateral primary osteoarthritis of knee (principal) | CPT/HCPCS: 64450 ==

== ENCOUNTER 2020-11-08 05:52 | Outpatient (REF) | payer OTHER, SELFPAY | END 2020-11-08 05:53 | disposition home or self-care (01) | LOC: HO.RADIR 05:52 | PROVIDERS: Visit Provider Internal Medicine | DX: Z13.89 Encounter for screening for other disorder (principal) ==

== ENCOUNTER → 2020-11-10 12:53 | Outpatient (BNVA) | payer OTHER, SELFPAY | PROVIDERS: PCP Internal Medicine Geriatric Medicine; Visit Provider Internal Medicine ==

== ENCOUNTER 2020-12-13 05:47 | Outpatient (REF) | payer OTHER, SELFPAY | END 2020-12-13 05:48 | disposition home or self-care (01) | LOC: HO.RADIR 05:47 | PROVIDERS: Visit Provider Internal Medicine | DX: Z13.89 Encounter for screening for other disorder (principal) ==

== ENCOUNTER 2020-12-13 13:25 | Day surgery (SDC) | payer OTHER, SELFPAY ==
--- NOTE | 2020-12-12 13:44 | HO.ANESPROP2 ---
Documented by User: Blanka Hernández NP 12/12/20 13:45 HPI - Anesthesia Eval Consult details Narrative: 60yo F for Right Genicular Nerve Block Cooled RFA *Blind PMFSH Active Problems Active Problems: All Active Problems (Updated 11/10/20 @ 12:59 by Callum Muir MD) Knee pain, right (Acute) Invasive ductal carcinoma of breast (Acute) Lumbar radiculitis (Acute) Lumbar and sacral arthritis (Acute) Cancer of right breast (Acute) Abnormal mammogram of right breast (Acute) Hemorrhoids (Acute) Diverticulosis (Acute) Hyperplastic colon polyp (Acute) Colon cancer screening (Acute) Retinitis pigmentosa (Acute) Hypothyroidism (Acute) GERD (gastroesophageal reflux disease) (Acute) Erythrocytosis (Acute) Bilateral primary osteoarthritis of knee (Acute) Past Medical History Medical History (Updated 11/10/20 @ 12:59 by Callum Muir MD) Bilateral primary osteoarthritis of knee Blind Colon cancer screening Diverticulosis Erythrocytosis GERD (gastroesophageal reflux disease) Hemorrhoids Hyperplastic colon polyp Hypertension Hypothyroidism Invasive ductal carcinoma of breast Lumbar and sacral arthritis Lumbar facet arthropathy Lumbar radiculitis Retinitis pigmentosa Family History Family History Father Throat cancer Mother No problems noted. 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 If so, by whom?: No Are you DNR?: No Advance Directives: No Advance Directives Information Provided: Yes Recently lost weight without trying: No Patient : No Current occupational status: disabled Current occupation: Right Handed Meds Allergies Allergy/AdvReac Type Severity Reaction Status Date / Time No Known Allergies Allergy Verified 11/01/20 11:14 Home Medications Medication Instructions Recorded Confirmed Last Taken Type gabapentin 600 mg tablet 600 mg PO TID tab 12/17/19 11/01/20 Unknown History olopatadine 0.1 % eye drops 1 drp OPHTHALMIC (EYE) BID 12/17/19 11/01/20 Unknown History albuterol sulfate 1 vial INHALATION QID 01/17/20 11/01/20 Unknown History fluticasone propionate 220 1 puff INHALATION BID 01/17/20 11/01/20 Unknown History mcg/actuation HFA aerosol inhaler (Flovent HFA) levothyroxine 100 mcg tablet 1 tab PO DAILY 01/17/20 11/01/20 12/13/20 History montelukast 10 mg tablet 1 tab PO BEDTIME 01/17/20 11/01/20 Unknown History omeprazole 40 mg capsule,delayed 1 cap PO DAILY 01/17/20 11/01/20 01/21/20 History release amlodipine 5 mg tablet 5 mg PO DAILY 04/14/20 11/01/20 Unknown History tramadol 50 mg tablet 50 mg PO NEEDED 04/14/20 11/01/20 Unknown History trazodone 150 mg tablet 150 mg PO BEDTIME 04/14/20 11/01/20 Unknown History Exam Exam Date and Time: December 12, [id number] Assessment and Plan Assessment Anesthesia Assessment: Chart Reviewed Documented by User: Haydee Mcneill MD 12/13/20 14:32 [facility] Past Medical History Medical History (Updated 11/10/20 @ 12:59 by Callum Muir MD) Bilateral primary osteoarthritis of knee Blind Colon cancer screening Diverticulosis Erythrocytosis GERD (gastroesophageal reflux disease) Hemorrhoids Hyperplastic colon polyp Hypertension Hypothyroidism Invasive ductal carcinoma of breast Lumbar and sacral arthritis Lumbar facet arthropathy Lumbar radiculitis Retinitis pigmentosa Family History Family History Father Throat cancer Mother No problems noted. 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 If so, by whom?: No Are you DNR?: No Advance Directives: No Advance Directives Information Provided: Yes Recently lost weight without trying: No Patient : No Current occupational status: disabled Current occupation: Right Handed Meds Allergies Allergy/AdvReac Type Severity Reaction Status Date / Time No Known Allergies Allergy Verified 11/01/20 11:14 Home Medications Medication Instructions Recorded Confirmed Last Taken Type gabapentin 600 mg tablet 600 mg PO TID tab 12/17/19 11/01/20 Unknown History olopatadine 0.1 % eye drops 1 drp OPHTHALMIC (EYE) BID 12/17/19 11/01/20 Unknown History albuterol sulfate 1 vial INHALATION QID 01/17/20 11/01/20 Unknown History fluticasone propionate 220 1 puff INHALATION BID 01/17/20 11/01/20 Unknown History mcg/actuation HFA aerosol inhaler (Flovent HFA) levothyroxine 100 mcg tablet 1 tab PO DAILY 01/17/20 11/01/20 12/13/20 History montelukast 10 mg tablet 1 tab PO BEDTIME 01/17/20 11/01/20 Unknown History omeprazole 40 mg capsule,delayed 1 cap PO DAILY 01/17/20 11/01/20 01/21/20 History release amlodipine 5 mg tablet 5 mg PO DAILY 04/14/20 11/01/20 Unknown History tramadol 50 mg tablet 50 mg PO NEEDED 03/05/21 09/22/21 Unknown History trazodone 150 mg tablet 150 mg PO BEDTIME 04/14/20 11/01/20 Unknown History Exam Airway Mallampati Class: III TM Dist: >3cm Neck ROM: Full Heart: rrr Lungs: cta Assessment and Plan Assessment Anesthesia Assessment: Anesthesia Plan Discussed and Chart Reviewed Final Anesthetic Review Family History of Problems with Anesthesia: No History of Problems with Anesthesia: No NPO: Yes ASA Class: III Final Preanesthetic Review: No Changes in Pt Med Stat, Meds/Allgs Chart Reviewed and Consent Obtained/Reviewed Patient Risk: Intermediate Procedure Risk: Intermediate Anesthetic Plan Anesthetic Plan: MAC: Disposition: Standard PACU
--- NOTE | ~2020-12-13 | FL_ITS ---
EXAMINATION: XR FLUOROSCOPY WITH IMAGES CLINICAL INFORMATION: Nerve block, right COMPARISON: 11/01/2020 TECHNIQUE: Fluoroscopy performed by Dr. Muir. Fluoroscopy time: 0 minutes DAP: 0.167 Gycm2 Images: 3 FINDINGS: Radiopaque needles overlie the distal femur and proximal tibia. Appropriate alignment of the knee. FL/FL guidance in OR IMPRESSION: Fluoroscopic guidance for intervention at the right knee. Please refer to procedural report for further information.
--- NOTE | 2020-12-13 13:51 | MHC.SHP ---
Pre-Procedural Eval Section A Date of Service: 12/13/20 The patient is an INPATIENT: No Changes since office visit: Yes Patient answered all questions The History & Physical has been completed within 30 days and I have reviewed it.: Yes Section B Chief Complaint: Knee Pain, Right Relevant Family History (Specify if Yes): No Relevant Social History: None Present Medications: None Medical History: No relevant PMH History of Previous Operations: Relevant previous surgery/procedure and date(s) (Positive diagnostic block) Allergies: Allergies Allergy/AdvReac Type Severity Reaction Status Date / Time No Known Allergies Allergy Verified 11/01/20 11:14 Review of Systems Sugical H&P ROS: Negative: Constitution Exam Surgical H&P Exam: Normal: HEENT Plan Diagnosis/Plan: Unchanged I have reviewed the history and physical and performed a pertinent physical examination on my patient. No changes have occurred unless specified.
--- NOTE | 2020-12-13 13:52 | PM.OP ---
Brief Operative Note Date of Service: 12/13/20 Pre-op diagnosis: Right knee pain Post-op diagnosis: same Procedure: Right knee genicular nerve ablation Surgeon: Callum Muir MD Anesthesia: MAC Was an Child Support Agent used for this Procedure?: No Estimated blood loss (mL): 5 Pathology: none sent Condition: stable Disposition: PACU
[2020-12-13 13:56] VITALS: BMI 35.3
[2020-12-13 13:59] VITALS: BP 151/76; PULSE 98; RESP 18; TEMP 36.1; O2SAT 96
[2020-12-13] MEDS: Lactated Ringers 1,000 ML 100 ML IVCONT (14:04)
[2020-12-13 16:37] VITALS: BP 139/56; PULSE 89; RESP 14; TEMP 36.4; O2SAT 98
[2020-12-13 16:52] VITALS: BP 147/78; PULSE 87; RESP 16; O2SAT 98
[2020-12-13 17:07] VITALS: BP 162/69; PULSE 79; RESP 18; TEMP 36; O2SAT 98
--- NOTE | 2020-12-21 10:34 | P.OP_ITS ---
Operative Note Operative Note Date of Service: 12/21/20 Narrative: Genicular Nerve Cooled RFL - fluoroscopic guided - Superior medial, superior lateral, and inferior medial genicular nerve radiofrequency lesioning, Right After obtaining written consent, patient was brought to the OR, placed supine and anesthetized by the trade show coordinator. The area overlying the peripheral nerves was widely prepped with chloraprep, allowed to dry and sterilely draped. Using fluoroscopy and ultrasound the appropriate landmarks were identified. The skin overlying the target was anesthetized with 0.5% lidocaine. A 17 gauge 50 mm radiofrequency cannula was advanced under fluoroscopic and ultrasound guidance to the appropriate landmark of each peripheral nerve. Aspiration was negative for heme and synovial fluid. Impedences were verified under 400 ohms. Motor testing (2 Hz) confirmed needle placement at each site within the appropriate voltage thresholds without any motor activation. Each site was injected with 1 ml 2% preservative-free lidocaine. Radiofrequency lesioning was performed for 250 seconds at 80 deg Celcius tissue temperature. The needles were removed, skin cleansed and a sterile bandage was applied. The patient tolerated the procedure well and no complications were en countered. Following the procedure the patient was awakened and brought to the PACU in stable condition. Time Out: Immediately prior to the procedure, the following was verbally confirmed that there is a signed consent form and that the correct patient, planned procedure, site and side are consistent with documentation and that necessary equipment and/or blood products are available prior to the start of the case. Complications: none EBL: 5 cc
== END 2020-12-13 17:27 | disposition home or self-care (01) ==
PROVIDERS: PCP Internal Medicine Geriatric Medicine; Visit Provider Internal Medicine
PROC: 3E0T3BZ Introduction of Anesthetic Agent into Peripheral Nerves and Plexi, Percutaneous Approach (ICD-10-PCS; CPT 64454; principal; 2020-12-13 14:40)
DX: M25.561 Pain in right knee (principal); M17.11 Unilateral primary osteoarthritis, right knee; I10 Essential (primary) hypertension; C50.919 Malignant neoplasm of unspecified site of unspecified female breast; Z90.10 Acquired absence of unspecified breast and nipple; H54.7 Unspecified visual loss; H35.52 Pigmentary retinal dystrophy; Z79.899 Other long term (current) drug therapy
CPT/HCPCS: 64624; J1100; J2250; J2405; J3010

== ENCOUNTER → 2021-01-12 10:20 | Outpatient (BNVA) | payer OTHER, SELFPAY | PROVIDERS: PCP Internal Medicine Geriatric Medicine; Visit Provider Internal Medicine | DX: M25.561 Pain in right knee (principal) | CPT/HCPCS: Q3014 ==

== ENCOUNTER 2021-01-26 15:00 | Outpatient (REF) | payer OTHER, SELFPAY ==
--- NOTE | ~2021-01-26 | MM_ITS ---
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 Due for yearly. COMPARISON: Mammography: 02/16/2020, 01/26/2020, 01/05/2020, 12/29/2018, 11/27/2017 TECHNIQUE: Digital breast tomosynthesis is performed in both the craniocaudal and mediolateral oblique views along with computer-aided detection (CAD). Synthesized 2D images are generated from the tomosynthesis. Additional left CC view is provided. FINDINGS: The breasts are heterogeneously dense, which may obscure small masses (ACR BI-RADS breast composition Category c). There are no significant masses, abnormal calcifications, or other abnormalities. Parenchymal pattern is similar to prior studies. No developing. No architectural abnormality. There are scattered benign isolated and grouped round calcifications and some vascular calcifications again seen. No significant changes from prior exams. MM/MM tomosynthesis screening LT IMPRESSION: No mammographic evidence of malignancy. ASSESSMENT: BI-RADS 2: Benign RECOMMENDATION: Routine annual mammography screening. This patient's information was entered into a reminder system with a target due date for their next mammogram.
== END 2021-01-26 15:01 | disposition home or self-care (01) ==
LOC: HO.MAMMO 15:00
PROVIDERS: Visit Provider Internal Medicine Geriatric Medicine
DX: Z12.31 Encounter for screening mammogram for malignant neoplasm of breast (principal)
CPT/HCPCS: 77063; 77067

== ENCOUNTER → 2021-03-05 15:59 | Outpatient (BNVA) | payer OTHER, SELFPAY | PROVIDERS: PCP Internal Medicine Geriatric Medicine; Referring Provider Internal Medicine Geriatric Medicine; Visit Provider Surgery | DX: Z85.3 Personal history of malignant neoplasm of breast (principal) | CPT/HCPCS: 99212 ==

== ENCOUNTER 2021-07-25 14:40 | Outpatient (REF) | payer OTHER, SELFPAY ==
--- NOTE | ~2021-07-25 | FL_ITS ---
EXAMINATION: XR BARIUM SWALLOW CLINICAL INFORMATION: Dysphagia COMPARISON: None TECHNIQUE: Modified barium swallow was performed in presence of speech for placed in lateral projection.. FINDINGS: On oral administration of thin barium, nectar consistency barium, barium solid food with chicken and barium coated cookie there is normal oral mastication and propagation bolus from oral cavity through the pharynx and esophagus without laryngeal penetration or aspiration. No retention of food seen in the valleculae or piriform sinuses. FLUOROSCOPY TIME: 1.6 minutes DOSE AREA PRODUCT: 1.074 uGy-m2 (microgray-meter squared) FL/FL barium swallow modified IMPRESSION: Unremarkable modified barium swallow examination. Correlate with speech therapy results.
--- NOTE | 2021-07-25 17:04 | MHC.SL.IMP ---
Date of Plan of Treatment: 07/25/21 Onset of Symptoms/Illness: 07/25/20 Date Treatment Started: 07/25/21 Admitting Diagnosis: Medical History: Bilateral primary osteoarthritis of knee Blind Colon cancer screening Diverticulosis Erythrocytosis GERD Hemorrhoids History of breast cancer Hyperplastic colon polyp Hypertension Hypothyroidism Invasive ductal carcinoma of breast Lumbar and sacral arthritis Lumbar facet arthropathy Lumbar radiculitis Retinitis pigmentosa SURGICAL HX: H/O mastectomy Hx of colonoscopy Primary Speech & Language Diagnosis: R13.12 Oropharyngeal Phase Dysphagia Reason for Today's Visit: 19683 Modified Barium Swallow Study Pre-evaluation Dietary Consistencies: Regular Pre-evaluation Liquid Consistency: Thin Pre-evaluation Medication Administration: Whole with Liquid Medical History: Modified Barium Swallow Study Fluoroscopic Evaluation of Swallowing Function CPT Code 24840 Evaluation Year: 2021 Reason for Study: Patient reports globus sensation and coughing when eating. Referring Physician: Kelsy Valdes M.D. Evaluating Clinician: Emperatriz Ghosh MA, CCC-ENAMEL SHADER Study Number: 1 Patient Name: Kristina Saravia Status: Outpatient, Ambulatory/Assisted Age: 60 Gender: Female Current (pre-evaluation) Intake/Diet: Route: PO Diet Grade: Regular Liquid Consistencies: Thin Pre-Study Functional Oral Intake Scale (FOIS): 7- Total oral intake with no restrictions Pain: None reported at time of study SUBJECTIVE: Patient is a 60 year old female referred for a modified barium swallow study by Kelsy Valdes MD of [facility]. Patient was accompanied to this exam by her daughter, who assisted in providing background information. Patient and her daughter report onset of dysphagia one year ago when patient had procedure for mastectomy. Patient?s daughter did mention that patient was intubated for the procedure. Since then, patient complains of cough and globus sensation intermittently when eating or drinking. She also reports coughing with secretions. Patient states she has to drink water to get food down sometimes. Patient denies pain when swallowing. Oral Motor Exam Facial Symmetry: Symmetrical Mouth Occlusion: Normal Oral-Facial Teeth Characteristics: Intact/Normal Oral-Facial Smile (Lips) Description: Normal Oral-Facial Puff Cheeks Description: Normal Tongue Size: Normal Tongue Excursion Description: Normal Tongue Range of Movement Description: Normal Tongue Speed of Movement Description: Normal Tongue Strength of Movement (against opposing pressure): Normal Tongue Movement Characteristics: Normal/Absent Food and Liquid Trials: Oral Impairment: Lip Closure: Did not test Oral Impairment: Tongue Control During Bolus Hold: 0=Cohesive bolus between tongue to palatal seal Oral Impairment: Bolus Preparation/Mastication: 1=Slow prolonged chewing/mashing with complete re-collection Oral Impairment: Bolus Transport/Lingual Motion: 2=Slowed tongue motion Oral Impairment: Oral Residue: 2=Residue collection on oral structures Oral Impairment:Initiation of Pharyngeal Swallow: 0=Bolus head at posterior angle of ramus (first hyoid excursion) Pharyngeal Impairment: Soft Palate Elevation: 0=No bolus between soft palate (SP)/pharyngeal wall (PW) Pharyngeal Impairment: Laryngeal Elevation: 1=Partial thyroid cartilage/arytenoids to epiglottic petiole movement Pharyngeal Impairment: Anterior Hyoid Excursion: 1=Partial anterior movement Pharyngeal Impairment: Epiglottic Movement: 0=Complete inversion Pharyngeal Impairment: Laryngeal Vestibular Closure:: 0=Complete: no air/contrast in laryngeal vestibule Pharyngeal Impairment: Pharyngeal Stripping Wave: 0=Present: complete Pharyngeal Impairment: Pharyngeal Contraction: Did not test Pharyngeal Impairment: Pharyngoesophageal Segment Openin=Complete distension and complete duration: no obstruction of flow Pharyngeal Impairment: Tongue Base (TB) Retraction: 2=Narrow column of contrast/air between TB and posterior PW Pharyngeal Impairment: Pharyngeal Residue: 1=Trace residue within or on pharyngeal structures Pharyngeal Impairment: Esophageal Clearance Upright Position: Did not test Impressions and Recommendations Clinical Observations: OBJECTIVE: Time-out: performed at 3:00 Evaluation Start: 02:45; Stop: 02:47 Patient Positioning: Seated 70-90 degrees Viewing Planes: LATERAL ONLY Contrast: MBSImP? Standardized Protocol using commercially prepared, standardized Barium viscosities, including: Varibar? THIN LIQUID (40% w/v, <15 cps) , 1/2 Shortbread Cookie (1 x1 x.25 ) MBSImP ID: [id number] MBSImP Results: Lip closure for intraoral bolus containment could not be assessed due to logistical reasons not related to physiologic impairment. Tongue control during bolus hold maintained a cohesive bolus held between tongue to palate seal. Bolus preparation and mastication resulted in slow, prolonged chewing/mashing but with complete re-collection. Bolus transport/lingual motion was with slowed tongue motion. Oral residue was a collection on oral structures. Initiation of the pharyngeal swallow occurred as the bolus head reached the posterior angle of the mandibular ramus. Soft palate elevation resulted in no bolus between the soft palate and the pharyngeal wall. Laryngeal elevation was decreased, with partial superior movement of the thyroid cartilage/partial approximation of the arytenoids to the epiglottic petiole. Anterior hyoid excursion demonstrated partial anterior movement. Epiglottic movement resulted in complete inversion. Laryngeal vestibular closure was complete, as indicated by no air or contrast within the laryngeal vestibule at the height of the swallow. Pharyngeal stripping wave was present and complete. Pharyngeal contraction could not be determined due to logistical reasons not related to physiologic impairment. Pharyngoesophageal segment opening was completely distended for complete duration with no obstruction of bolus flow. Tongue base retraction allowed a narrow column of contrast or air between the retracted tongue base and the posterior pharyngeal wall. Pharyngeal residue was a trace within or on pharyngeal structures. Esophageal clearance in the upright position could not be assessed due to logistical reasons not related to physiologic impairment. Oral Impairment Score: 5 (absence of score, component 1) Pharyngeal Impairment Score: 4 (absence of score, component 13) Esophageal Impairment Score: --- (absence of score, component 17) Laryngeal Penetration and Aspiration: Neither penetration nor aspiration was observed in today's study with Cookie, Thin. ASSESSMENT: Clinician Assessment: This exam was performed by a multidisciplinary team, which included a speech pathologist, radiologist, and civil technician. Patient was seated upright at 90 degrees in a chair for lateral view only. Patient trialed the following liquid and solid consistencies: thin liquid barium by cup, pureed solid (mixture applesauce with barium paste), ground solid (mixture chicken salad with barium paste), and regular solid (Salma Doone cookie coated with barium paste). Good tongue control. Patient maintained cohesive bolus between tongue to palatal seal. There was no premature posterior escape of bolus. Mastication was mildly slow and prolonged, characterized by piecemeal deglutition. Patient chewed bolus, swallowed partial bolus, continued chewing remaining bolus, and swallowed again. Posterior lingual movement for transport of bolus was mildly slowed. Noted mild lingual residue. Timely pharyngeal swallow trigger. Initiation of pharyngeal swallow with bolus head at posterior angle of ramus. No nasopharyngeal reflux. Partial laryngeal elevation with partial anterior hyoid excursion. Epiglottic inversion was complete. Complete laryngeal vestibular closure. There was no evidence of aspiration or penetration with solids and liquids during this exam. Trace residue on tongue base and posterior pharyngeal wall. No obstruction of flow through pharyngoesophageal segment opening. Liquid Intake Recommendation: Thin Liquid Intake Strategies: Small Sips Dietary Recommendations: Regular Medication Administration: Whole with Liquid Please contact the pharmacy regarding appropriate crushable or liquid drug formulations that are available whenever modified delivery is recommended. Compensatory Strategies Recommended: Sitting Upright (90 deg), Small Bites and Sips, Alternate Liquids/Solids, Rate of Ingestion Change Recommendation for Speech Therapy: NA:Typical Evaluation Text Comment: PLAN: Intake Recommendations: Route: PO Diet Grade: Regular Liquid Consistencies: Thin Post-Study Functional Oral Intake Scale (FOIS): 7- Total oral intake with no restrictions Unremarkable exam. There was no evidence of aspiration or penetration. Recommend patient to continue monitoring dysphagia. If there are any changes or worsening of symptoms, contact PCP, at which point a re-evaluation may be warranted. Therapy Recommendations: Therapy will be discontinued Prognosis for Improvement: The prognosis for the patient to meet nutritional needs by mouth is excellent based on degree of impairment. Clinician - Supplemental, Miscellaneous Communication: It is important to note MBSS objective studies are snapshots in time and Patient function might vary with factors such as time of day or concomitant medical conditions. For this reason, the final treatment plan for this patient should rest with their medical care team. Additional recommendations should be considered with the totality of the Patient in mind. Thank for the opportunity to participate in the care of this patient. If you have any questions about the content of this report, please contact the [facility] at [facility]. Education: Education regarding findings from today's study and plans for therapy were provided to Family/caregiver only through Verbal Instruction. Understanding was expressed by the Family/caregiver only. Chair Installer Clinician/Clinical Fellow: No Supervisory Statement: N/A Speech Language Pathologist: Emperatriz Ghosh M.A., CCC-ENAMEL SHADER
== END 2021-07-25 14:41 | disposition home or self-care (01) ==
LOC: HO.XRAY 14:40
PROVIDERS: Visit Provider Internal Medicine
DX: R13.12 Dysphagia, oropharyngeal phase (principal)
CPT/HCPCS: 74230; 92611

== ENCOUNTER → 2021-10-26 10:03 | Outpatient (BNVA) | payer OTHER, SELFPAY | PROVIDERS: PCP Internal Medicine Geriatric Medicine; Visit Provider Internal Medicine | DX: M54.16 Radiculopathy, lumbar region (principal) | CPT/HCPCS: 99212 ==

== ENCOUNTER 2021-11-07 06:09 | Outpatient (REF) | payer OTHER, SELFPAY ==
--- NOTE | ~2021-11-07 | FL_ITS ---
EXAMINATION: XR FLUOROSCOPY WITH IMAGES CLINICAL INFORMATION: Radiculopathy. COMPARISON: None. TECHNIQUE: Fluoroscopy performed by Bel Lara. Fluoroscopy time: 0.6 minutes. Cumulative Dose: 25.3 mGy. DAP: 2.41 Gy-cm2. Images: 6. FINDINGS: At least 6 digital images obtained revealing needle positioned adjacent to the bilateral L4 pedicles with contrast opacifying intraspinal and extraspinal epidural space. Mild loss of L4-L5 disc height is seen. No gross bony abnormality. FL/FL guidance in treatment room IMPRESSION: Fluoroscopy guidance was provided to referrer for pain management.
== END 2021-11-07 06:10 | disposition home or self-care (01) ==
LOC: CF 06:09
PROVIDERS: Visit Provider Internal Medicine
DX: M54.16 Radiculopathy, lumbar region (principal)
CPT/HCPCS: 64483; 64484; J1100

== ENCOUNTER → 2021-12-07 08:10 | Outpatient (BNVA) | payer OTHER, SELFPAY | PROVIDERS: PCP Internal Medicine Geriatric Medicine; Visit Provider Internal Medicine | DX: M54.16 Radiculopathy, lumbar region (principal) | CPT/HCPCS: 99212 ==

== ENCOUNTER 2022-01-30 08:55 | Outpatient (REF) | payer OTHER, SELFPAY ==
--- NOTE | ~2022-01-30 | MM_ITS ---
EXAMINATION: MM SCREENING DIGITAL BREAST TOMOSYNTHESIS, LEFT CLINICAL INFORMATION: Right mastectomy 2020 for IDC and DCIS. Due for yearly. COMPARISON: Mammography: 01/26/2021, 01/05/2020, 12/29/2018 TECHNIQUE: Digital breast tomosynthesis is performed in both the craniocaudal and mediolateral oblique views along with computer-aided detection (CAD). Synthesized 2D images are generated from the tomosynthesis. FINDINGS: The breasts are heterogeneously dense, which may obscure small masses (ACR BI-RADS breast composition Category c). There are no significant masses, abnormal calcifications, or other abnormalities. Parenchymal pattern is similar to prior studies. There is no developing density or architectural abnormality. The axilla and skin contours are unremarkable. No significant changes. MM/MM tomosynthesis screening LT IMPRESSION: No mammographic evidence of malignancy. ASSESSMENT: BI-RADS 1: Negative RECOMMENDATION: Routine annual mammography screening. This patient's information was entered into a reminder system with a target due date for their next mammogram.
== END 2022-01-30 08:56 | disposition home or self-care (01) ==
LOC: HO.MAMMO 08:55
PROVIDERS: PCP Internal Medicine Geriatric Medicine; Visit Provider Internal Medicine Geriatric Medicine
DX: Z12.31 Encounter for screening mammogram for malignant neoplasm of breast (principal)
CPT/HCPCS: 77063; 77067

== ENCOUNTER 2022-02-06 06:05 | Outpatient (REF) | payer OTHER, SELFPAY ==
--- NOTE | ~2022-02-06 | FL_ITS ---
EXAMINATION: XR FLUOROSCOPY WITH IMAGES CLINICAL INFORMATION: Radiculopathy. COMPARISON: None. TECHNIQUE: Fluoroscopy Supervised By: Bel Mixno. Fluoroscopy Time: 0.1 minutes. Cumulative Dose: 3.60 mGy. DAP: 0.361 Gycm2. Images: 2. FINDINGS: There are 2 digital images obtained revealing needle positioned along the right L4-L5 disc level and contrast opacifying the posterior epidural/subdural space. Visualized L4 and L5 vertebral heights are normal. No lytic process. FL/FL guidance in treatment room IMPRESSION: Fluoroscopy guidance was provided to referrer for pain management.
== END 2022-02-06 06:06 | disposition home or self-care (01) ==
LOC: CF 06:05
PROVIDERS: Visit Provider Internal Medicine
DX: M54.16 Radiculopathy, lumbar region (principal)
CPT/HCPCS: 62323; J1040

== ENCOUNTER → 2022-03-08 09:50 | Outpatient (BNVA) | payer OTHER, SELFPAY | PROVIDERS: PCP Internal Medicine Geriatric Medicine; Visit Provider Internal Medicine | DX: M54.16 Radiculopathy, lumbar region (principal) | CPT/HCPCS: 99212 ==

== ENCOUNTER → 2022-05-09 11:07 | Outpatient (BNVA) | payer OTHER, SELFPAY | PROVIDERS: PCP Internal Medicine Geriatric Medicine; Visit Provider Surgery | DX: C50.911 Malignant neoplasm of unspecified site of right female breast (principal); Z90.11 Acquired absence of right breast and nipple; Z79.810 Long term (current) use of selective estrogen receptor modulators (SERMs) | CPT/HCPCS: 99212 ==

== ENCOUNTER 2022-09-25 14:47 | Outpatient (REF) | payer OTHER, SELFPAY ==
--- NOTE | ~2022-09-25 | XR_ITS ---
EXAMINATION: XR LUMBOSACRAL SPINE WITH OBLIQUES CLINICAL INFORMATION: Back pain status post fall. COMPARISON: Lumbar spine radiographs dated 08/25/2020. TECHNIQUE: AP, both oblique, and lateral views of the lumbar spine. Lateral view of the lumbosacral junction. FINDINGS: There is normal lumbar lordosis and spinal alignment. The vertebral bodies are intact. Mild multilevel degenerative changes are seen. The soft tissues are unremarkable. XR/XR lumbar spine 4V min IMPRESSION: Mild degenerative changes without overt fracture.
--- NOTE | ~2022-09-25 | XR_ITS ---
EXAMINATION: XR HIP, LEFT CLINICAL INFORMATION: Left hip pain status post fall. COMPARISON: None available. TECHNIQUE: Two views of the left hip. FINDINGS: Mild left hip degenerative joint changes are seen. There is no acute fracture dislocation. The left hemipelvis is intact with the soft tissues are unremarkable. XR/XR hip LT min 2V IMPRESSION: Mild left hip osteoarthritis. No acute fracture.
--- NOTE | ~2022-09-25 | XR_ITS ---
EXAMINATION: XR HIP, RIGHT CLINICAL INFORMATION: Right hip pain status post fall. COMPARISON: None available. TECHNIQUE: Two views of the right hip. FINDINGS: Mild right hip degenerative joint changes are seen. There is no acute fracture or dislocation. The right hemipelvis is intact. The soft tissues are unremarkable. XR/XR hip RT min 2V IMPRESSION: Mild right hip osteoarthritis. No acute fracture.
== END 2022-09-25 14:48 | disposition home or self-care (01) ==
LOC: HO.HHCX 14:47
PROVIDERS: Visit Provider Family Medicine
DX: M54.42 Lumbago with sciatica, left side (principal); M25.551 Pain in right hip; M25.552 Pain in left hip
CPT/HCPCS: 72110; 73502

== ENCOUNTER 2022-10-16 11:17 | Outpatient (REF) | payer OTHER, SELFPAY ==
[2022-10-16 13:13] LABS: MANUAL DIFF FLAG NO
[2022-10-16 13:29] LABS: Basophils Absolute Auto 0.1 X10*3/uL (0.0-0.2); Basophils Percent Auto 0.7 % (0-2); Eosinophils Absolute Auto 0.1 X10*3/uL (0.0-0.4); Eosinophils Percent Auto 1.6 % (0-4); Hematocrit 45.5 % (37.0-47.0); Hemoglobin 14.7 g/dl (12.0-16.0); Imm Gran Abs Auto 0.04 X10*3/uL (0.00-0.03); Imm Gran Pct Auto 0.5 % (0.0-0.4); Lymphocytes Percent Auto 36.3 % (20-40); Mean Corpuscular HGB Conc 32.3 g/dl (31.0-35.0); Mean Corpuscular Hemoglobin 31.1 pg (27.0-33.0); Mean Corpuscular Volume 96.4 fL (80.0-98.0); Mean Platelet Volume 11.4 fL (9.4-12.3); Monocytes Absolute Auto 0.7 X10*3/uL (0.1-1.2); Monocytes Percent Auto 8.7 % (2-11); Neutrophils Absolute Auto 4.3 x10*3/uL (2.0-8.3); Neutrophils Percent Auto 52.2 % (45-73); Platelet Count 267 X10*3/uL (160-400); Red Blood Count 4.72 X10*6/uL (4.20-5.50); White Blood Count 8.2 X10*3/uL (4.8-10.8)
[2022-10-16 13:40] LABS: Appearance Urine Cloudy; Color Urine Yellow; Glucose Urine UA Negative (Negative); Leukocyte Esterase Urine Negative (Negative); Nitrite Urine Negative (Negative); PH 5.5 (5.0-9.0); Urine Blood Negative (Negative); Urine Ketones Negative (Negative); Urine Protein Negative (Neg-Trace)
[2022-10-16 13:47] LABS: Alanine Aminotransferase 15 U/L (0-31); Albumin Level 3.7 g/dL (3.5-5.0); Alkaline Phosphatase 118 U/L (39-117); Anion Gap 13 (12-20); Aspartate Amino Transferase 17 U/L (5-31); Bilirubin Total 0.3 mg/dL (0.0-1.0); Blood Urea Nitrogen 20 mg/dL (9-16); Calcium 9.2 mg/dL (8.4-10.2); Carbon Dioxide 28 mmol/L (22-29); Chloride 108 mmol/L (96-108); Estimated Glomerular Filt Rate 59; Glucose Random 78 mg/dL (60-115); Potassium 4.1 mmol/L (3.3-5.1); Sodium 145 mmol/L (135-145); Total Protein 6.9 g/dL (6.5-8.0)
[2022-10-16 13:59] LABS: Bacteria Urine 4+ (None Seen); Calcium Oxalate Crystals Urine Present; Hyaline Casts Urine 0-2 /LPF (0-2); Other Crystals Urine Present; RBC Urine 0-2 /HPF (0-2); Squamous Epithelial Cell Urine >20 /HPF (0-2); UACC Culture Trigger YES
== END 2022-10-16 11:18 | disposition home or self-care (01) ==
LOC: HO.HHCL 11:17
PROVIDERS: Visit Provider Internal Medicine Geriatric Medicine
DX: R10.31 Right lower quadrant pain (principal)
CPT/HCPCS: 36415; 80053; 81001; 85025; 87086

== ENCOUNTER 2022-12-04 10:00 | Outpatient (REF) | payer OTHER, SELFPAY ==
--- NOTE | ~2022-12-04 | CT_ITS ---
EXAMINATION: CT ABDOMEN AND PELVIS WITH CONTRAST CLINICAL INFORMATION: Right lower quadrant pain COMPARISON: None available. TECHNIQUE: Multidetector volumetric images were obtained from the superior aspect of the liver through the pubic symphysis following administration 85 mL of Omnipaque 350 intravenous contrast. Sagittal and coronal reformatted images were obtained on the technologist's workstation. Oral contrast: Yes This CT examination was performed using dose optimization techniques as appropriate, variously including the following: *Automated exposure control *Adjustment of mA and/or kV according to patient size (this includes techniques or standardized protocols for targeted exams where dose is matched to indication/reason for exam; i.e. extremities or head) *Use of iterative reconstruction technique DLP: 411 mGy-cm FINDINGS: LUNG BASES: The visualized lung bases are clear. The right breast has been removed. LIVER, GALLBLADDER, AND BILIARY TREE: The liver is low in attenuation suggestive of fatty infiltration. Liver size and contour is normal. The gallbladder is normal in size. There are areas of questionable gallbladder wall thickening and enhancement. This may represent adenomyomatosis of the gallbladder wall. This could be better evaluated with ultrasound. No intra or extrahepatic biliary duct dilatation. PANCREAS: Unremarkable. SPLEEN: Unremarkable. ADRENAL GLANDS: Unremarkable. KIDNEYS AND URETERS: The kidneys are normal in size, shape, and attenuation. No hydronephrosis, hydroureter, or calculi seen. No perinephric stranding. BLADDER: Unremarkable. GASTROINTESTINAL TRACT: The small and large bowel are unremarkable. The appendix is unremarkable. ABDOMINAL WALL: No significant hernia is appreciated. LYMPH NODES: Normal. VASCULAR: Unremarkable. PELVIC VISCERA: Unremarkable. OSSEOUS STRUCTURES: Probable both Schmorl's node and mild compression fracture of the superior endplate of the L2 vertebral body. CT/CT abdomen pelvis w IV con IMPRESSION: Normal-appearing appendix. No cause of right lower quadrant pain. Fatty liver. Areas of mild gallbladder wall thickening and increased enhancement. Follow-up gallbladder ultrasound recommended. Fleischner guidelines were followed.
[2022-12-04] MEDS: iohexoL 350 MG/ML 100 ML INFUS..BTL IV (12:24)
== END 2022-12-04 10:01 | disposition home or self-care (01) ==
LOC: HO.CT 10:00
PROVIDERS: PCP Internal Medicine Geriatric Medicine; Visit Provider Internal Medicine Geriatric Medicine
DX: R10.31 Right lower quadrant pain (principal)
CPT/HCPCS: 74177; Q9967

== ENCOUNTER 2022-12-18 08:22 | Outpatient (REF) | payer OTHER, SELFPAY ==
--- NOTE | ~2022-12-18 | US_ITS ---
EXAMINATION: US ABDOMEN COMPLETE CLINICAL INFORMATION: Gallbladder polyp, possible adenomyomatosis seen on CT. COMPARISON: CT abdomen and pelvis with contrast 11/14/2022. TECHNIQUE: Real-time imaging of the abdominal viscera. FINDINGS: PANCREAS: Tail obscured. ABDOMINAL AORTA: The proximal, mid, and distal segments are normal in caliber. INFERIOR VENA CAVA: Visualized portions are normal. LIVER: The liver is enlarged. The liver contour is normal. There is diffuse increased liver parenchymal echogenicity, consistent with hepatic steatosis. No definite focal lesion is seen, but evaluation is limited due to poor sound beam penetration through the coarse echogenic liver parenchyma. There is no intrahepatic biliary duct dilatation seen. GALLBLADDER: Possible adenomyomatosis. The gallbladder is physiologically distended without evidence of stones, sludge, polyps, wall thickening or pericholecystic fluid. COMMON BILE DUCT: Normal in caliber measuring 0.4 cm in diameter. RIGHT KIDNEY: No hydronephrosis. No renal calculi or focal parenchymal lesions. The kidney measures 10.0 cm in maximum dimension. LEFT KIDNEY: No hydronephrosis. No renal calculi or focal parenchymal lesions. The kidney measures 9.2 cm in maximum dimension. SPLEEN: The spleen measures 8.5 cm in maximum dimension. FREE FLUID: None. US/US abdomen complete IMPRESSION: Hepatic steatosis and hepatomegaly. Possible adenomyomatosis of the gallbladder.
== END 2022-12-18 08:23 | disposition home or self-care (01) ==
LOC: HO.HMGCX 08:22
PROVIDERS: PCP Internal Medicine Geriatric Medicine; Visit Provider Internal Medicine Geriatric Medicine
DX: K82.4 Cholesterolosis of gallbladder (principal); D13.5 Benign neoplasm of extrahepatic bile ducts
CPT/HCPCS: 76700

== ENCOUNTER 2023-02-05 08:47 | Outpatient (REF) | payer OTHER, SELFPAY ==
--- NOTE | ~2023-02-05 | MM_ITS ---
EXAMINATION: MM SCREENING DIGITAL BREAST TOMOSYNTHESIS, LEFT CLINICAL INFORMATION: Screening. Asymptomatic. The patient is status post right mastectomy. COMPARISON: Mammography: This study is compared with prior exams dating back to TECHNIQUE: Digital breast tomosynthesis is performed in both the craniocaudal and mediolateral oblique views along with computer-aided detection (CAD). Synthesized 2D images are generated from the tomosynthesis. FINDINGS: The breasts are heterogeneously dense, which may obscure small masses (ACR BI-RADS breast composition Category c). There are no significant masses, abnormal calcifications, or other abnormalities. MM/MM tomosynthesis screening LT IMPRESSION: No mammographic evidence of malignancy. ASSESSMENT: BI-RADS BI-RADS 1 - Negative RECOMMENDATION: Routine annual mammography screening. 1 year F/U This examination should not preclude the clinical evaluation of a suspicious palpable abnormality. This patient's information was entered into a reminder system with a target due date for their next mammogram.
--- NOTE | ~2023-02-05 | MM_ITS ---
EXAMINATION: BONE DENSITOMETRY CLINICAL INDICATION: Osteopenia. COMPARISON: Baseline BD dated 04/06/2020. TECHNIQUE: Using a Dashbell DXA System (software version: 13.1) manufactured by [employer], dual-energy x-ray absorptiometry was performed of the lumbar spine and left hip. The images are of good technical quality. Summary results are attached. FINDINGS: LEFT FEMUR, NECK: Current: BMD 0.824 g/cm2, Z-score -0.3, T-score -1.5, osteopenia. Baseline: BMD 0.849 g/cm2. LEFT FEMUR, TOTAL: Current: BMD 0.958 g/cm2, Z-score 0.6, T-score -0.4, normal, 5.7% decrease from baseline (<5% change is not significant). Baseline: BMD 1.016 g/cm2. AP SPINE L3-L4 (excluding L1 and L2): The data of L1-L4 has been changed to exclude the L1 and L2 vertebral bodies, because degenerative sclerosis at these levels may cause overestimation of lumbar spine density. Current: BMD 1.022 g/cm2, Z-score -0.2, T-score -1.5, osteopenia, 13.5% decrease from baseline (<5% change is not significant). Baseline: BMD 1.181 g/cm2. IDENTIFIED RISK FACTORS: Menopause. HISTORY OF FRACTURE: None listed. MEDICATIONS: Multivitamin, vitamin D. MM/XR DEXA axial skeleton IMPRESSION: 1. DIAGNOSIS: Osteopenia based on the lowest T-score value of -1.5 in the femoral neck and lumbar spine applying World Health Organization criteria. 2. 10-YEAR FRACTURE RISK PREDICTION, FRAX: Major osteoporotic fracture (clinical spine, forearm, hip or shoulder) 4.7%. Hip fracture 0.5%. 3. Treatment Recommendations: NOF guidelines recommend consideration for treatment in postmenopausal women and men age 50 and older presenting with the following: -A hip or vertebral (clinical or morphometric) fracture. -T-score less than or equal to -2.5 at the femoral neck or spine after appropriate evaluation to exclude secondary causes. -Low bone mass at the hip or spine and a 10-year fracture probability by FRAX of greater than or equal to 3% for hip fracture or greater than or equal to 20% for major osteoporotic fracture based on the [place] adapted WHO algorithm. 4. Other Recommendations: All treatment decisions require clinical judgment and consideration of individual patient factors, including patient preferences, comorbidities, previous drug use, risk factors not captured in the FRAX model (e.g. frailty, falls, vitamin D deficiency, increased bone turnover, interval significant decline in bone density) and possible under or overestimation of fracture risk by FRAX. Additional medical evaluation for secondary cause of low bone mineral density may be appropriate. FUTURE SCAN RECOMMENDATION: People with diagnosed cases of osteoporosis or at high risk for fracture should have regular bone mineral density tests. For patients eligible for Medicare, routine testing is allowed once every 2 years. The testing frequency can be increased to one year for patients who have rapidly progressing disease, those who are receiving or discontinuing medical therapy to restore bone mass, or have additional risk factors.
== END 2023-02-05 08:48 | disposition home or self-care (01) ==
LOC: HO.MAMMO 08:47
PROVIDERS: PCP Internal Medicine Geriatric Medicine; Visit Provider Internal Medicine Medical Oncology
DX: Z12.31 Encounter for screening mammogram for malignant neoplasm of breast (principal); Z13.820 Encounter for screening for osteoporosis; M85.80 Other specified disorders of bone density and structure, unspecified site; Z78.0 Asymptomatic menopausal state
CPT/HCPCS: 77063; 77067; 77080

== ENCOUNTER → 2023-02-05 09:15 | Outpatient (BNV) | payer OTHER, SELFPAY | PROVIDERS: PCP Internal Medicine Geriatric Medicine; Visit Provider Radiology Diagnostic Radiology | DX: Z12.31 Encounter for screening mammogram for malignant neoplasm of breast (principal) | CPT/HCPCS: 77063; 77067 ==

== ENCOUNTER 2023-04-17 08:52 | Outpatient (AMB) | payer OTHER, SELFPAY ==
--- NOTE | 2023-04-17 08:54 | MHC.OFFVIS ---
Intake Vital Signs 04/17/23 09:04 Height 4 ft 11 in Weight 159 lb BMI 32.1 BP 159/72 H Blood Pressure Location Lt brachial Position Sitting Pulse 70 Intake Visit Reasons: yearly breast exam Intake Note: This patient presents for a yearly follow-up breast examination assessment. Pt c/o; reports no breast complaints at this time. 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 Accompanied by: Daughter Allergies No Known Allergies Allergy (Verified 04/17/23 09:06) Medication List - Last Reconciled 04/17/23 by Shyam Liz MD albuterol sulfate 1 vial inhalation QID amlodipine 5 mg PO DAILY cholecalciferol (vitamin D3) (Vitamin D3) 50 mcg PO DAILY docusate sodium (Colace) 100 mg PO BID fluticasone propionate 220 mcg/actuation (Flovent HFA) 1 puff inhalation BID PRN gabapentin 600 mg PO TID montelukast 1 tab PO BEDTIME olopatadine 0.1% 1 drp ophthalmic (eye) BID omeprazole 1 cap PO DAILY sertraline 20 mg PO DAILY tamoxifen 10 mg PO BID tamoxifen 20 mg PO DAILY tramadol 50 mg PO NEEDED PRN trazodone 150 mg PO BEDTIME HPI yearly breast exam HPI Details She has history of right breast inva sive ductal cancer and had undergone mastectomy and se ntinel biopsy in . She did not require chemothera py. She is curren tly on antiestroge n treatment as wel l with tamoxifen. She is here for h er regular breast exam. She had a m ammogram for the l eft breast last 2022 which was unremarkable. She denies any new masses. She d enies any new comp laints. [facility] Medical History History of breast cancer Invasive ductal carcinoma of breast Lumbar radiculitis Lumbar and sacral arthritis Hemorrhoids Diverticulosis Hyperplastic colon polyp Blind Colon cancer screening Retinitis pigmentosa Hypothyroidism GERD (gastroesophageal reflux disease) Erythrocytosis Hypertension Lumbar facet arthropathy Bilateral primary osteoarthritis of knee Surgical History H/O mastectomy Hx of colonoscopy Family History Father Throat cancer Mother Throat cancer Brother Gastric cancer Lung cancer Brother Gastric cancer Other Kidney cancer, primary, with metastasis from kidney to other site Social History Household Members: None Housing: Apartment Are you a primary urgent care physician assistant to a significant other at home: No Do you presently have visiting nurse or 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 home 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) Alcohol intake: never Patient Tobacco Use Status: Never used Tobacco Second Hand Smoke Exposure: No service: No Current occupational status: disabled Current 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: Right Handed Female Reproductive History Menstrual Age of Menarche: 9 Review of Systems Const Denies chills and Denies fever(s) Card Denies chest pain, Denies dyspnea and Denies dyspnea on exertion Resp Denies cough, Denies dyspnea and Denies dyspnea on exertion GI Denies hematochezia and Denies change in bowel habits Denies hematuria Musc Reports abnormal gait, Reports back pain, Reports arthralgias and Reports limited range of motion Neuro Reports abnormal gait, Denies focal weakness and Denies convulsions Psych Denies depression and Denies mood swings Physical Exam Const General: comfortable and no acute distress Orientation/consciousness: patient oriented x3 Neck Neck: Yes no lymphadenopathy Chest Other: No palpable mass on the left breast, no palpable mass on the mastectomy site on the chest wall on the right, no axillary lymphadenopathy Resp Auscultation: clear to auscultation bilaterally Cardio Rhythm: regular rhythm GI Palpation (GI): Soft to palpation, nontender and no guarding Neuro General: patient oriented x3 Assessment & Plan Assessment & Plan (1) History of breast cancer: Code(s): Z85.3 - Personal history of malignant neoplasm of breast Plan: She is doing well after mastectomy on the right breast for invasive ductal cancer. She does not have any palpable breast mass on the left breast. There are no palpable masses on the mastectomy site. Her mammogram from January, does not reveal any new lesions on the left breast I reminded her to continue to do her yearly mammograms. She is also to continue to follow-up with Dr. Mo of Oncology. I will see her in the office next year after her mammogram. Coding Level of Care Code Est Pt Level 3 (54379) Diagnoses History of breast cancer Z85.3
[2023-04-17 09:04] VITALS: BP 159/72; PULSE 70; BMI 32.1
== END 2023-04-17 09:13 | disposition home or self-care (01) ==
PROVIDERS: PCP Internal Medicine Geriatric Medicine; Visit Provider Surgery
DX: Z85.3 Personal history of malignant neoplasm of breast (principal)
CPT/HCPCS: 99213

== ENCOUNTER → 2023-04-17 08:52 | Outpatient (BNVA) | payer OTHER, SELFPAY | PROVIDERS: PCP Internal Medicine Geriatric Medicine; Visit Provider Surgery | DX: Z85.3 Personal history of malignant neoplasm of breast (principal) | CPT/HCPCS: 99212 ==

== ENCOUNTER 2023-04-30 09:33 | Day surgery (SDC) | payer OTHER, SELFPAY ==
--- NOTE | 2023-04-29 09:29 | HO.ANESPROP2 ---
Documented by User: Blanka Hernández NP 04/29/23 09:31 HPI - Anesthesia Eval Consult details Narrative: 62yo F for Spinal Cord Stimulation [facility] Active Problems Active Problems: All Active Problems (Updated 07/10/21 @ 15:30 by Yuly Black MD) History of breast cancer (Acute) Abnormal mammogram of right breast (Acute) Cancer of right breast (Acute) Knee pain, right (Acute) Invasive ductal carcinoma of breast (Acute) Lumbar radiculitis (Acute) Lumbar and sacral arthritis (Acute) Hemorrhoids (Acute) Diverticulosis (Acute) Hyperplastic colon polyp (Acute) Colon cancer screening (Acute) Retinitis pigmentosa (Acute) Hypothyroidism (Acute) GERD (gastroesophageal reflux disease) (Acute) Erythrocytosis (Acute) Bilateral primary osteoarthritis of knee (Acute) Past Medical History Medical History Hx of sciatica History of breast cancer Invasive ductal carcinoma of breast Lumbar radiculitis Lumbar and sacral arthritis Hemorrhoids Diverticulosis Hyperplastic colon polyp Blind Colon cancer screening Retinitis pigmentosa Hypothyroidism GERD (gastroesophageal reflux disease) Erythrocytosis Hypertension Lumbar facet arthropathy Bilateral primary osteoarthritis of knee Family History Family History Father Throat cancer Mother Throat cancer Brother Gastric cancer Lung cancer Brother Gastric cancer Other Kidney cancer, primary, with metastasis from kidney to other site Family history of problems with anesthesia: No Surgical History Surgical History H/O mastectomy Hx of colonoscopy History of Problems with Anesthesia: No Social History Social History Household Members: None Housing: Apartment Are you a primary healthcare administrator to a significant other at home: No Do you presently have visiting nurse 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) Alcohol intake: never Patient Tobacco Use Status: Former Tobacco user Quit Date: age 38's Second Hand Smoke Exposure: No Use of substances other than those prescribed or required for medical reasons: No Are you DNR?: Yes Advance Directives: No Advance Directives Information Provided: Yes service: No Current occupational status: disabled Current occupation: Right Handed Meds Allergies Allergy/AdvReac Type Severity Reaction Status Date / Time No Known Allergies Allergy Verified 04/30/23 10:34 Home Medications Medication Instructions Recorded Confirmed Last Taken Type gabapentin 600 mg tablet 600 mg PO TID 12/17/19 04/24/23 Unknown History olopatadine 0.1 % eye drops 1 drp ophthalmic (eye) BID 12/17/19 04/24/23 Unknown History albuterol sulfate 2.5 mg/3 mL 1 vial inhalation QID 01/17/20 04/24/23 Unknown History (0.083 %) solution for nebulization fluticasone propionate 220 1 puff inhalation BID PRN 01/17/20 04/24/23 Unknown History mcg/actuation HFA aerosol inhaler Shortness Of Breath (Flovent HFA) montelukast 10 mg tablet 1 tab PO BEDTIME 01/17/20 04/24/23 Unknown History omeprazole 40 mg capsule,delayed 1 cap PO DAILY 01/17/20 04/24/23 01/21/20 History release amlodipine 5 mg tablet 5 mg PO DAILY 04/14/20 04/24/23 Unknown History tramadol 50 mg tablet 50 mg PO NEEDED PRN Pain 04/14/20 04/24/23 Unknown History trazodone 150 mg tablet 150 mg PO BEDTIME 04/14/20 04/24/23 Unknown History sertraline 20 mg/mL oral 20 mg PO DAILY 07/10/21 04/24/23 Unknown History concentrate tamoxifen 20 mg tablet 10 mg PO BID 11/22/21 04/24/23 Unknown History Exam Pertinent Lab Results Pertinent Lab Results: Laboratory Tests 04/24/23 08:51 WBC 9.5 Hgb 14.6 Hct 43.3 Plt Count 208 Sodium 146 H Potassium 4.1 Chloride 109 H Carbon Dioxide 29 BUN 19 H Creatinine 0.91 Assessment and Plan Assessment Anesthesia Assessment: Chart Reviewed Final Anesthetic Review Family History of Problems with Anesthesia: No History of Problems with Anesthesia: No Documented by User: Laney Miranda MD 04/30/23 13:23 [facility] Past Medical History Medical History Hx of sciatica History of breast cancer Invasive ductal carcinoma of breast Lumbar radiculitis Lumbar and sacral arthritis Hemorrhoids Diverticulosis Hyperplastic colon polyp Blind Colon cancer screening Retinitis pigmentosa Hypothyroidism GERD (gastroesophageal reflux disease) Erythrocytosis Hypertension Lumbar facet arthropathy Bilateral primary osteoarthritis of knee Family History Family History Father Throat cancer Mother Throat cancer Brother Gastric cancer Lung cancer Brother Gastric cancer Other Kidney cancer, primary, with metastasis from kidney to other site Surgical History Surgical History H/O mastectomy Hx of colonoscopy Social History Social History Household Members: None Housing: Apartment Are you a primary healthcare administrator to a significant other at home: No Do you presently have visiting nurse 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) Alcohol intake: never Patient Tobacco Use Status: Former Tobacco user Quit Date: age 38's Second Hand Smoke Exposure: No Use of substances other than those prescribed or required for medical reasons: No Are you DNR?: Yes Advance Directives: No Advance Directives Information Provided: Yes service: No Current occupational status: disabled Current occupation: Right Handed Meds Allergies Allergy/AdvReac Type Severity Reaction Status Date / Time No Known Allergies Allergy Verified 04/30/23 10:34 Home Medications Medication Instructions Recorded Confirmed Last Taken Type gabapentin 600 mg tablet 600 mg PO TID 12/17/19 04/24/23 Unknown History olopatadine 0.1 % eye drops 1 drp ophthalmic (eye) BID 12/17/19 04/24/23 Unknown History albuterol sulfate 2.5 mg/3 mL 1 vial inhalation QID 01/17/20 04/24/23 Unknown History (0.083 %) solution for nebulization fluticasone propionate 220 1 puff inhalation BID PRN 01/17/20 04/24/23 Unknown History mcg/actuation HFA aerosol inhaler Shortness Of Breath (Flovent HFA) montelukast 10 mg tablet 1 tab PO BEDTIME 01/17/20 04/24/23 Unknown History omeprazole 40 mg capsule,delayed 1 cap PO DAILY 01/17/20 04/24/23 01/21/20 History release amlodipine 5 mg tablet 5 mg PO DAILY 04/14/20 04/24/23 Unknown History tramadol 50 mg tablet 50 mg PO NEEDED PRN Pain 04/14/20 04/24/23 Unknown History trazodone 150 mg tablet 150 mg PO BEDTIME 04/14/20 04/24/23 Unknown History sertraline 20 mg/mL oral 20 mg PO DAILY 07/10/21 04/24/23 Unknown History concentrate tamoxifen 20 mg tablet 10 mg PO BID 11/22/21 04/24/23 Unknown History Exam Airway Mallampati Class: II TM Dist: >3cm Neck ROM: Full Loose/Missing/Broken Teeth: No Heart: RRR Lungs: CTA Assessment and Plan Assessment Anesthesia Assessment: Anesthesia Plan Discussed Final Anesthetic Review NPO: Yes ASA Class: II Final Preanesthetic Review: Meds/Allgs Chart Reviewed, Consent Obtained/Reviewed and Anes Risks/Benef Reviewed Patient Risk: Low Procedure Risk: Low Anesthetic Plan Anesthetic Plan: MAC: Disposition: Standard PACU
--- NOTE | ~2023-04-30 | FL_ITS ---
EXAMINATION: XR FLUOROSCOPY WITH IMAGES CLINICAL INFORMATION: STIM trial. COMPARISON: Fluoroscopy dated 02/06/2022. TECHNIQUE: Fluoroscopy Supervised By: Dr. Callum Muir. Fluoroscopy Time: 2.5 minutes. Cumulative Dose: 49.5 mGy. DAP: 4.92 Gycm2. Images: 2. FINDINGS: The submitted images show a pain management device, with electrodes positioned with distal tip at the T6-T7 level. FL/FL guidance in OR IMPRESSION: Intraoperative fluoroscopic guidance is provided during thoracic pain management procedure. Please see the patient's Operative Report for full procedural details.
[2023-04-30 10:54] VITALS: BP 139/72; PULSE 86; RESP 16; TEMP 36.3; O2SAT 95; BMI 33.0
[2023-04-30] MEDS: Lactated Ringers 1,000 ML 100 ML IVCONT (11:20)
--- NOTE | 2023-04-30 11:45 | MHC.SHP ---
Pre-Procedural Eval Section A - 24 Hr Update-Section A only Date of Service: 04/30/23 The patient is an INPATIENT: No Changes since office visit: Yes Patient answered all questions The patient has been examined within 24 hours of the surgical procedure. The History & Physical has been completed within 30 days and I have reviewed it.: No Section B - Complete if H&P > 30 days Chief Complaint: Radiculopathy, lumbar region Relevant Family History (Specify if Yes): No Relevant Social History: None Present Medications: see Short Stay Collaborative assessment Medical History: No relevant PMH History of Previous Operations: Relevant previous surgery/procedure and date(s) Allergies: Allergies Allergy/AdvReac Type Severity Reaction Status Date / Time No Known Allergies Allergy Verified 04/30/23 10:34 Review of Systems Sugical H&P ROS: Negative: Constitution, Cardiovascular and Respiratory Exam Surgical H&P Exam: Normal: HEENT, Normal: Heart and Normal: Lungs Plan Diagnosis/Plan: Unchanged I have reviewed the history and physical and performed a pertinent physical examination on my patient. No changes have occurred unless specified. Time Spent With Patient Time: Total time managing care of this patient today ____ minutes.
--- NOTE | 2023-04-30 11:49 | P.BOP_ITS ---
Brief Operative Note Date of Service: 04/30/23 Pre-op diagnosis: Lumbar radiculopathy Post-op diagnosis: same Procedure: Lumbar spinal cord stimulation trial Implants: Patel SCS leads Surgeon: Callum Muir MD Anesthesia: MAC Was an Health Equipment Servicer used for this Procedure?: No Estimated blood loss (mL): 2 Pathology: none sent Condition: stable Disposition: PACU
--- NOTE | 2023-04-30 11:49 | W.PM.OPN ---
Operative Note Operative Note Date of Service: 04/30/23 Narrative: Percutaneous Spinal Cord Stimulator Trial, Lumbar After obtaining written consent, pre-procedure blood pressure and heart rate were recorded and are in the nursing record for review. A peripheral IV was started. Antibiotics, cefazolin 2 gram, were given intraoperatively. The patient was placed in a prone position.? The patient was sedated by the anesthesiologist. The thoracolumbar area was widely prepped with ChloraPrep, allowed to dry and draped in sterile fashion. Fluoroscopy was used to identify the target interlaminar spaces and appropriate needle insertion sites. The skin and subcutaneous tissue was anesthetized with 0.5% lidocaine. Two separate 14 gauge Cuode epidural needles were then advanced from this point in a paramedian approach to the epidural space opening at T12/L1 interspace, where lost of resistance was found using air. No paresthesias were elicited with needle placement. No CSF or heme was present upon needle placement. The 1x8 stimulator lead wires were then threaded to the top of T7 in the right and left parasagittal positions under live fluoroscopy. The leads advanced midline and dorsal.?The needles were then completely removed under live fluoroscopy. The stimulator wires were then secured with 1-0 ticron sutures securing the anchors. Steri-Strips, Exofin, gauze and tegaderm were used for skin dressing. The patient tolerated the procedure well and no complications were encountered. Following the procedure the patient's vital signs were stable. The patient was discharged home in good condition after being given discharge instructions. Time Out: Immediately prior to the procedure, the following was verbally confirmed that there is a signed consent form and that the correct patient, planned procedure, site and side are consistent with documentation and that necessary equipment and/or blood products are available prior to the start of the case. Complications: none EBL: <2 cc
[2023-04-30 14:00] VITALS: BP 169/81; PULSE 76; RESP 18; TEMP 37.1; O2SAT 96
[2023-04-30 14:18] VITALS: BP 158/76; PULSE 76; RESP 18; TEMP 36.7; O2SAT 96
== END 2023-04-30 14:45 | disposition home or self-care (01) ==
PROVIDERS: Registered Nurse Emergency; PCP Internal Medicine Geriatric Medicine; Visit Provider Internal Medicine
PROC: (CPT 63650; principal; 2023-04-30 12:00)
DX: M54.16 Radiculopathy, lumbar region (principal); C50.919 Malignant neoplasm of unspecified site of unspecified female breast; Z79.810 Long term (current) use of selective estrogen receptor modulators (SERMs); Z90.10 Acquired absence of unspecified breast and nipple; I10 Essential (primary) hypertension; Z79.899 Other long term (current) drug therapy; Z66 Do not resuscitate; Z87.891 Personal history of nicotine dependence
CPT/HCPCS: 63650 ×2; 87640; 87641; A4364; C1897; J0690; J2250; J2704; J2795; J3010

== ENCOUNTER → 2023-04-30 09:33 | Outpatient (BNV) | payer OTHER, SELFPAY | PROVIDERS: PCP Internal Medicine Geriatric Medicine; Visit Provider Internal Medicine | DX: M54.16 Radiculopathy, lumbar region (principal) | CPT/HCPCS: 63650 ==

== ENCOUNTER 2023-05-07 08:17 | Outpatient (AMB) | payer OTHER, SELFPAY ==
--- NOTE | 2023-05-07 08:21 | A.OFFVIS_ITS ---
Intake Vital Signs 05/07/23 08:22 Height 4 ft 11 in Weight 163 lb BMI 32.9 BP 120/68 Blood Pressure Location Lt brachial Position Sitting Pulse 82 Pulse Source Pulse Oximeter Pulse Oximetry (%) 96 Oxygen Delivery Method Room Air Intake Visit Reasons: S/p Patel SCS Trial 04/30/23 Allergies No Known Allergies Allergy (Verified 05/07/23 08:21) Medication List - Last Reconciled 05/07/23 by Lisy Earl, FIELD APPLICATION ENGINEER albuterol sulfate 1 vial inhalation QID amlodipine 5 mg PO DAILY cholecalciferol (vitamin D3) (Vitamin D3) 50 mcg PO DAILY docusate sodium (Colace) 100 mg PO BID fluticasone propionate 220 mcg/actuation (Flovent HFA) 1 puff inhalation BID PRN gabapentin 600 mg PO TID montelukast 1 tab PO BEDTIME olopatadine 0.1% 1 drp ophthalmic (eye) BID omeprazole 1 cap PO DAILY sertraline 20 mg PO DAILY tamoxifen 10 mg PO BID tamoxifen 20 mg PO DAILY tramadol 50 mg PO NEEDED PRN trazodone 150 mg PO BEDTIME HPI S/p Patel SCS Trial 04/30/23 HPI Details 62-year-old female who presents today to the office for status post Patel SCS trial 04/30/23 The patient reports 90% relief following the procedure. She states the cramps that used to radiate down to her toes have resolved since the procedure. Past Procedures: 04/30/23: Percutaneous Spinal cord stimul ator trial, lumbar ? 90% relief 02/06/22: Right L4-L5 parasagital interl aminar JOSELINE ? 40% relief for 2 weeks. 11/07/21: Right L4, L5 TFESI ? Diagnostic relief only for 1 day. 12/21/20: Right geniculate nerve cooled RFA ? Moderate relief 1 year out. 11/01/20: Right knee diagnostic genicular nerve blocks ? 100% relief for 1 day. 09/06/20: Right L4, L5 TFESI- 90% relief for 6 months [facility] Medical History Hx of sciatica History of breast cancer Invasive ductal carcinoma of breast Lumbar radiculitis Lumbar and sacral arthritis Hemorrhoids Diverticulosis Hyperplastic colon polyp Blind Colon cancer screening Retinitis pigmentosa Hypothyroidism GERD (gastroesophageal reflux disease) Erythrocytosis Hypertension Lumbar facet arthropathy Bilateral primary osteoarthritis of knee Surgical History H/O mastectomy Hx of colonoscopy Family History Father Throat cancer Mother Throat cancer Brother Gastric cancer Lung cancer Brother Gastric cancer Other Kidney cancer, primary, with metastasis from kidney to other site Social History Household Members: None Housing: Apartment Are you a primary manager progressive care to a significant other at home: No Do you presently have visiting nurse 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 Alert and oriented. Mood and affect appropriate. Follows and participates in conversation appropriately. Respiratory effort is unlabored. Able to transition from sit to stand unassisted. Leads removed with tip intact. Lead insertion sites dressed with bacitracin and gauze. Results Reviewed Results Reviewed: No imaging is available for review Assessment & Plan Assessment & Plan (1) Lumbar radiculitis: Code(s): M54.16 - Radiculopathy, lumbar region Plan Patient had 90% relief during her trial. She was very pleased with the outcome. She is interested in proceeding with a permanent non rechargeable Patel SCS system and we will schedule her for SCS implant and proceed from there. Scribed for Dr. Muir by Viki Michelle, biomedical field service engineer, on 05/07/2023. I, Dr. Muir, have personally reviewed and agree with the information entered by the scribe. Coding Level of Care Code Est Pt Level 3 (61307) Diagnoses Lumbar radiculitis M54.16
[2023-05-07 08:22] VITALS: BP 120/68; PULSE 82; O2SAT 96; BMI 32.9
== END 2023-05-07 08:41 | disposition home or self-care (01) ==
LOC: HO.PMC 08:17
PROVIDERS: PCP Internal Medicine Geriatric Medicine; Visit Provider Internal Medicine
DX: M54.16 Radiculopathy, lumbar region (principal)
CPT/HCPCS: 99024

== ENCOUNTER → 2023-05-07 08:17 | Outpatient (BNVA) | payer OTHER, SELFPAY | PROVIDERS: PCP Internal Medicine Geriatric Medicine; Visit Provider Internal Medicine | DX: M54.16 Radiculopathy, lumbar region (principal) | CPT/HCPCS: 99212 ==

== ENCOUNTER 2023-08-13 10:10 | Day surgery (SDC) | payer OTHER, SELFPAY ==
--- NOTE | ~2023-08-13 | FL_ITS ---
EXAMINATION: XR FLUOROSCOPY WITH IMAGES CLINICAL INFORMATION: Spinal cord stimulator implant. COMPARISON: None available. TECHNIQUE: Fluoroscopy Supervised By: Dr. Callum Muir. Fluoroscopy Time: 13 minutes and 6 seconds. Cumulative Dose: 207.23 mGy. DAP: 22.480 Gycm2. Images: 4. FINDINGS: Intraoperative fluoroscopy and spot films were performed during a procedure in the OR. 2 leads are seen overlying the thoracic spine with tips in the [id number] thoracic spine. Precise levels can not be ascertained secondary to marked coning of the images with lack of appropriate landmarks. Please correlate with Dr. Callum Muir's report for complete details. FL/FL guidance in OR IMPRESSION: Intraoperative fluoroscopy and spot films were obtained. Please see Dr. Callum Muir's report for complete details.
--- NOTE | 2023-08-13 09:55 | HO.ANESPROP2 ---
[facility] Active Problems Active Problems: All Active Problems Knee pain, right (Acute) Cancer of right breast (Acute) Abnormal mammogram of right breast (Acute) History of breast cancer (Acute) Invasive ductal carcinoma of breast (Acute) Lumbar radiculitis (Acute) Lumbar and sacral arthritis (Acute) Hemorrhoids (Acute) Diverticulosis (Acute) Hyperplastic colon polyp (Acute) Colon cancer screening (Acute) Retinitis pigmentosa (Acute) Hypothyroidism (Acute) GERD (gastroesophageal reflux disease) (Acute) Erythrocytosis (Acute) Bilateral primary osteoarthritis of knee (Acute) Past Medical History Medical History Hx of sciatica History of breast cancer Invasive ductal carcinoma of breast Lumbar radiculitis Lumbar and sacral arthritis Hemorrhoids Diverticulosis Hyperplastic colon polyp Blind Colon cancer screening Retinitis pigmentosa Hypothyroidism GERD (gastroesophageal reflux disease) Erythrocytosis Hypertension Lumbar facet arthropathy Bilateral primary osteoarthritis of knee Family History Family History Father Throat cancer Mother Throat cancer Brother Gastric cancer Lung cancer Brother Gastric cancer Other Kidney cancer, primary, with metastasis from kidney to other site Family history of problems with anesthesia: No Surgical History Surgical History H/O mastectomy Hx of colonoscopy History of Problems with Anesthesia: No Social History Social History Household Members: None Housing: Apartment Are you a primary overnight caregiver to a significant other at home: No Do you presently have visiting 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) Alcohol intake: never Patient Tobacco Use Status: Former Tobacco user Second Hand Smoke Exposure: No Advance Directives: No Advance Directives Information Provided: Yes service: No Current occupational status: disabled Current occupation: Right Handed Meds Allergies Allergy/AdvReac Type Severity Reaction Status Date / Time No Known Allergies Allergy Verified 08/13/23 10:33 Home Medications ?Medication ?Instructions ?Recorded ?Confirmed ?Last Taken ?Type gabapentin 600 mg tablet 600 mg PO TID 12/17/19 05/07/23 Unknown History olopatadine 0.1 % eye drops 1 drp ophthalmic (eye) BID 12/17/19 05/07/23 Unknown History albuterol sulfate 2.5 mg/3 mL 1 vial inhalation QID 01/17/20 05/07/23 Unknown History (0.083 %) solution for nebulization fluticasone propionate 220 1 puff inhalation BID PRN 01/17/20 05/07/23 Unknown History mcg/actuation HFA aerosol inhaler Shortness Of Breath (Flovent HFA) montelukast 10 mg tablet 1 tab PO BEDTIME 01/17/20 05/07/23 Unknown History omeprazole 40 mg capsule,delayed 1 cap PO DAILY 01/17/20 05/07/23 01/21/20 History release amlodipine 5 mg tablet 5 mg PO DAILY 04/14/20 05/07/23 08/13/23 08:30 History tramadol 50 mg tablet 50 mg PO NEEDED PRN Pain 04/14/20 05/07/23 Unknown History trazodone 150 mg tablet 150 mg PO BEDTIME 04/14/20 05/07/23 Unknown History sertraline 20 mg/mL oral 20 mg PO DAILY 07/10/21 05/07/23 Unknown History concentrate tamoxifen 20 mg tablet 10 mg PO BID 11/22/21 05/07/23 Unknown History levothyroxine 112 mcg tablet 112 mcg PO DAILY 08/13/23 08/13/23 08/13/23 07:00 History Exam Airway Mallampati Class: II TM Dist: >3cm Neck ROM: Full Loose/Missing/Broken Teeth: No Heart: RRR Lungs: CTA Assessment and Plan Assessment Anesthesia Assessment: Anesthesia Plan Discussed and Chart Reviewed Final Anesthetic Review Family History of Problems with Anesthesia: No History of Problems with Anesthesia: No NPO: Yes ASA Class: III Final Preanesthetic Review: Meds/Allgs Chart Reviewed, Consent Obtained/Reviewed and Anes Risks/Benef Reviewed Patient Risk: Intermediate Procedure Risk: Low Anesthetic Plan Anesthetic Plan: MAC: Disposition: Standard PACU
[2023-08-13 10:36] VITALS: BMI 32.9
[2023-08-13 10:51] VITALS: BP 146/73; PULSE 81; RESP 16; TEMP 36.4; O2SAT 96
[2023-08-13] MEDS: Lactated Ringers 1,000 ML 50 ML IVCONT (11:04)
--- NOTE | 2023-08-13 12:01 | MHC.SHP ---
Pre-Procedural Eval Section A - 24 Hr Update-Section A only Date of Service: 08/13/23 The patient is an INPATIENT: No Changes since office visit: Yes Patient answered all questions The patient has been examined within 24 hours of the surgical procedure. The History & Physical has been completed within 30 days and I have reviewed it.: No Section B - Complete if H&P > 30 days Chief Complaint: Radiculopathy, lumbar region Relevant Social History: None Present Medications: see Short Stay Collaborative assessment Medical History: No relevant PMH History of Previous Operations: No relevant previous surgery Allergies: Allergies Allergy/AdvReac Type Severity Reaction Status Date / Time No Known Allergies Allergy Verified 08/13/23 10:33 Review of Systems Sugical H&P ROS: Negative: Constitution, Cardiovascular and Respiratory Exam Surgical H&P Exam: Normal: HEENT, Normal: Heart and Normal: Lungs Plan Diagnosis/Plan: Unchanged I have reviewed the history and physical and performed a pertinent physical examination on my patient. No changes have occurred unless specified. Proceed with non rechargeable IPG/SCS Patel system. Time Spent With Patient Time: Total time managing care of this patient today ____ minutes.
[2023-08-13 12:02] LABS: MRSA Nasal PCR NEGATIVE (Negative); SA Nasal PCR NEGATIVE (Negative)
--- NOTE | 2023-08-13 12:02 | P.OP_ITS ---
Operative Note Operative Note Date of Service: 08/13/23 Narrative: Lumbar SCS Implant After proper identification, the patient was brought to the operating room. After prone positioning, patient was sedated under anesthesia. Care was taken during positioning to protect and pad all pressure points. Cefazolin 2gm was given as preoperative antibiotic prophylaxis. The back was prepped and draped in the usual sterile fashion using Chloroprep. The fluoroscope unit was sterilely draped and brought into field, the vertebral target and the L1-L2 interspace was localized with fluoroscopy after the skin was anesthetized with 0.25% bupivicaine with 1:200,000 epinephrine and 1% lidocaine using a 25-gauge needle. A 6 cm incision was then made in the midline back with a 15 blade between the L2 and L3 spinous processes. Electrocautery was used to dissect down to the prevertebral fascia. 2 sets of Tycron sutures per electrode for the anchor stitches were placed on the prevertebral fascia. Two 14-gauge introducer epimed needles were advanced using AP and contralateral oblique fluoroscopy views to the target interspace on either side of the L2 spinous process. Upon loss of resistance, a flexible stylet was advanced and verified to be in the epidural space.? The left electrode was then threaded up to the top of T7 vertebral body. The right electrode was threaded to the bottom of T6 vertebral body. The patient was woken up and adequate coverage in the area of right and left low back and hip pain was confirmed. The patient was then re- sedated. We then backed out the needle under live fluoroscopy, verifying that the electrodes were in the correct position and we then used the locking anchors to secure the electrodes down to the prevertebral fascia, tying them down with the Tycron sutures placed earlier. At this point, a pocket for the generator was made in the left iliac fossa. With the skin and subcutaneous tissues anesthetized with 0.25% bupivicaine with 1:200,000 epinephrine and 1% lidocaine, a horizontal 2-inch incision was made using a 15 blade and combination of sharp dissection, blunt dissection and electrocautery was used. A subcutaneous artery was ligated using a silk tie. A pocket was created about half an inch below the skin. The pocket was then irrigated with normal saline containing vancomycin. Hemostasis was attained with electrocautery. We then tunneled the electrodes from the back into the pocket using the tunneling device. The electrodes were then connected to the generator. A single Tycron suture was thrown across the floor of the pocket and through the medial anchor hold of the generator. After interrogation with impedance check the generator was placed into the subcutaneous pocket and the anchoring suture tied. Care was taken not to get fluid in the generator connector block. The excess lead was closed beneath the generator creating a loop of strain relief as well. The neurostimulator generator was placed parallel to the skin at a depth of half an inch along for successful telemetry and impedence. The pocket was reirrigated and closed with the generator name facing out. Final electronic analysis was performed to ensure proper functioning. Positioning of the leads were rechecked and confirmed with fluoroscopy and i mages saved. Both incisions were closed with a deep layer of 2-0 Vicryl sutures, the deep dermal layer with 3-0 Vicryl sutures, simple interrupted and a running 4-0 Monocryl for the subcutaneous layer. We then secured the incision with Dermabond, steristrips and OpSites over both incisions. The patient tolerated the procedure well. The patient was then flipped back into the supine position, woken up and brought to the PACU in stable condition. Complications: None EBL: 50 mL
--- NOTE | 2023-08-13 12:02 | P.BOP_ITS ---
Brief Operative Note Date of Service: 08/13/23 Pre-op diagnosis: Lumbar radiculopathy Post-op diagnosis: same Procedure: Lumbar spinal cord stimulation implant Implants: Patel non-rechargeable Proclaim SCS Surgeon: Callum Muir MD Anesthesia: MAC Was an Senior Staff Specialized Employment used for this Procedure?: No Estimated blood loss (mL): 50 Pathology: none sent Condition: stable Disposition: PACU
[2023-08-13 15:08] VITALS: BP 153/79; PULSE 82; RESP 16; TEMP 36.1; O2SAT 97
[2023-08-13 15:23] VITALS: BP 144/74; PULSE 70; RESP 15; O2SAT 96
[2023-08-13 15:38] VITALS: BP 148/71; PULSE 72; RESP 14; TEMP 36.2; O2SAT 98
[2023-08-13 15:53] VITALS: BP 149/70; PULSE 71; RESP 16; TEMP 36.2; O2SAT 97
[2023-08-13] MEDS: ondansetron HCL 4 MG/2 ML VIAL IVPUSH (15:54)
== END 2023-08-13 16:16 | disposition home or self-care (01) ==
PROVIDERS: Registered Nurse Emergency; PCP Internal Medicine Geriatric Medicine; Visit Provider Internal Medicine
PROC: (CPT 63685; principal; 2023-08-13 12:00)
DX: M54.16 Radiculopathy, lumbar region (principal); I10 Essential (primary) hypertension; C50.919 Malignant neoplasm of unspecified site of unspecified female breast; Z90.10 Acquired absence of unspecified breast and nipple; Z79.810 Long term (current) use of selective estrogen receptor modulators (SERMs); Z79.899 Other long term (current) drug therapy; Z66 Do not resuscitate; Z87.891 Personal history of nicotine dependence
CPT/HCPCS: 63685; 63650 ×2; 87640; 87641; A4364; C1767; C1889; C1897; J0690; J2250; J2405; J2704; J3010; J3370

== ENCOUNTER → 2023-08-13 10:10 | Outpatient (BNV) | payer OTHER, SELFPAY | PROVIDERS: PCP Internal Medicine Geriatric Medicine; Visit Provider Internal Medicine | DX: M54.16 Radiculopathy, lumbar region (principal) | CPT/HCPCS: 63650; 63685 ==

== ENCOUNTER 2023-08-20 09:12 | Outpatient (AMB) | payer OTHER, SELFPAY ==
--- NOTE | 2023-08-20 09:19 | A.OFFVIS_ITS ---
Vital Signs 08/20/23 09:20 Height 4 ft 11 in Weight 162 lb BMI 32.7 BP 144/70 H Blood Pressure Location Lt brachial Position Sitting Respiration 14 Pulse 84 Pulse Source Pulse Oximeter Pulse Oximetry (%) 95 Oxygen Delivery Method Room Air Intake Visit Reasons: S/p Patel SCS Implant 08/13/23 Allergies No Known Allergies Allergy (Verified 08/20/23 09:21) Medication List - Last Reconciled 08/20/23 by Tracy Cabello LPN albuterol sulfate 1 vial inhalation QID amlodipine 5 mg PO DAILY celecoxib 200 mg PO cholecalciferol (vitamin D3) (Vitamin D3) 50 mcg PO DAILY docusate sodium (Colace) 100 mg PO BID fluticasone propionate 220 mcg/actuation (Flovent HFA) 1 puff inhalation BID PRN gabapentin 600 mg PO TID levothyroxine 112 mcg PO DAILY montelukast 1 tab PO BEDTIME olopatadine 0.1% 1 drp ophthalmic (eye) BID omeprazole 1 cap PO DAILY sertraline 20 mg PO DAILY tamoxifen 20 mg PO DAILY tramadol 50 mg PO NEEDED PRN trazodone 150 mg PO BEDTIME HPI HPI S/p Patel SCS Implant 08/13/23: Details: 63-year-old female who presents today for status post Patel SCS. The patient reports 90% initial relief following the procedure. She states she has mild pain on the right side and around her feet; however, her debilitating pain has significantly improved. She is feeling heaviness and sensitivity at the IPG incision site. She states she is able to walk well. Past Procedures: 08/13/23: Patel SCS Implant - 90 % initial relief. 04/30/23: Percutaneous Spinal cord stimulator trial, lumbar ? 90% relief. 02/06/22: Right L4-L5 parasagital interlaminar JOSELINE ? 40% relief for 2 weeks. 11/07/21: Right L4, L5 TFESI ? Diagnostic relief only for 1 day. 12/21/20: Right geniculate nerve cooled RFA ? Moderate relief 1 year out. 11/01/20: Right knee diagnostic genicular nerve blocks ? 100% relief for 1 day. 09/06/20: Right L4, L5 TFESI- 90% relief for 6 months [facility] Medical History (Updated 08/13/23 @ 11:03 by Sharon Obrien RN) Asthma Hx of sciatica History of breast cancer Invasive ductal carcinoma of breast Lumbar radiculitis Lumbar and sacral arthritis Hemorrhoids Diverticulosis Hyperplastic colon polyp Blind Colon cancer screening Retinitis pigmentosa Hypothyroidism GERD (gastroesophageal reflux disease) Erythrocytosis Hypertension Lumbar facet arthropathy Bilateral primary osteoarthritis of knee Surgical History (Updated 08/13/23 @ 11:01 by Sharon Obrien RN) History of back surgery H/O mastectomy Hx of colonoscopy Family History Father Throat cancer Mother Throat cancer Brother Gastric cancer Lung cancer Brother Gastric cancer Other Kidney cancer, primary, with metastasis from kidney to other site Social History Household Members: None Housing: Apartment Are you a primary senior care provider to a significant other at home: No Do you presently have visiting 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 Alert and oriented. Mood and affect appropriate. Follows and participates in conversation appropriately. Respiratory effort is unlabored. Able to transition from sit to stand unassisted. Ambulates with bilaterally normal heel strike and toe off. Dressings removed in the office today. The incisions are well healed and dry. Steri-Strips left in place. Results Reviewed Results Reviewed: 09/25/22: XR LUMBOSACRAL SPINE WITH OBLIQUES FINDINGS: There is normal lumbar lordosis and spinal alignment. The vertebral bodies are intact. Mild multilevel degenerative changes are seen. The soft tissues are unremarkable. IMPRESSION: Mild degenerative changes without overt fracture. Assessment & Plan Assessment & Plan (1) Lumbar radiculitis: Code(s): M54.16 - Radiculopathy, lumbar region Category: Medical Plan Patient reports 90% initial pain relief following implant of the non rechargeable SCS Patel system. Advised to keep the abdominal binder on for another 2 weeks. Informed that the Steri-Strips should fall off on their own. Patient can shower after Friday. Follow-up next week for wound check. Scribed for Dr. Muir by Tripp, medical record coder, on 08/20/2023. I, Dr. Muir, have personally reviewed and agree with the information entered by the scribe. Coding Level of Care Code Est Pt Level 3 (83735) Diagnoses Lumbar radiculitis M54.16
[2023-08-20 09:20] VITALS: BP 144/70; PULSE 84; RESP 14; O2SAT 95; BMI 32.7
== END 2023-08-20 09:34 | disposition home or self-care (01) ==
PROVIDERS: PCP Internal Medicine Geriatric Medicine; Visit Provider Internal Medicine
DX: M54.16 Radiculopathy, lumbar region (principal)
CPT/HCPCS: 99024

== ENCOUNTER → 2023-08-20 09:12 | Outpatient (BNVA) | payer OTHER, SELFPAY | PROVIDERS: PCP Internal Medicine Geriatric Medicine; Visit Provider Internal Medicine | DX: M54.16 Radiculopathy, lumbar region (principal); Z98.890 Other specified postprocedural states | CPT/HCPCS: 99212 ==

== ENCOUNTER 2023-08-27 09:09 | Outpatient (AMB) | payer OTHER, SELFPAY ==
[2023-08-27 09:13] VITALS: BP 149/67; PULSE 74; RESP 14; O2SAT 95; BMI 32.7
--- NOTE | 2023-08-27 09:13 | MHC.OFFVIS ---
Vital Signs 08/27/23 09:13 Height 4 ft 11 in Weight 162 lb BMI 32.7 BP 149/67 H Blood Pressure Location Lt brachial Position Sitting Respiration 14 Pulse 74 Pulse Source Pulse Oximeter Pulse Oximetry (%) 95 Oxygen Delivery Method Room Air Intake Visit Reasons: S/p Patel SCS Implant 08/13/23 (2nd Visit) Allergies No Known Allergies Allergy (Verified 08/27/23 09:15) Medication List - Last Reconciled 08/27/23 by Tracy Cabello LPN albuterol sulfate 1 vial inhalation QID amlodipine 5 mg PO DAILY celecoxib 200 mg PO cholecalciferol (vitamin D3) (Vitamin D3) 50 mcg PO DAILY docusate sodium (Colace) 100 mg PO BID fluticasone propionate 220 mcg/actuation (Flovent HFA) 1 puff inhalation BID PRN gabapentin 600 mg PO TID levothyroxine 112 mcg PO DAILY montelukast 1 tab PO BEDTIME olopatadine 0.1% 1 drp ophthalmic (eye) BID omeprazole 1 cap PO DAILY sertraline 20 mg PO DAILY tamoxifen 20 mg PO DAILY tramadol 50 mg PO NEEDED PRN trazodone 150 mg PO BEDTIME HPI HPI S/p Patel SCS Implant 08/13/23 (2nd Visit): Details: 63-year-old female who presents to the office for status post Patel SCS implant 08/13/23 (2nd visit) The patient reports 90% relief following the procedure. Past Procedures: 08/13/23: Patel SCS Implant - 90% initial relief. 04/30/23: Percutaneous Spinal cord stimulator trial, lumbar ? 90% relief. 02/06/22: Right L4-L5 parasagital interlaminar JOSELINE ? 40% relief for 2 weeks. 11/07/21: Right L4, L5 TFESI ? Diagnostic relief only for 1 day. 12/21/20: Right geniculate nerve cooled RFA ? Moderate relief 1 year out. 11/01/20: Right knee diagnostic genicular nerve blocks ? 100% relief for 1 day. 09/06/20: Right L4, L5 TFESI- 90% relief for 6 months [facility] Medical History (Updated 08/13/23 @ 11:03 by Sharon Obrien RN) Asthma Hx of sciatica History of breast cancer Invasive ductal carcinoma of breast Lumbar radiculitis Lumbar and sacral arthritis Hemorrhoids Diverticulosis Hyperplastic colon polyp Blind Colon cancer screening Retinitis pigmentosa Hypothyroidism GERD (gastroesophageal reflux disease) Erythrocytosis Hypertension Lumbar facet arthropathy Bilateral primary osteoarthritis of knee Surgical History (Updated 08/13/23 @ 11:01 by Sharon Obrien RN) History of back surgery H/O mastectomy Hx of colonoscopy Family History Father Throat cancer Mother Throat cancer Brother Gastric cancer Lung cancer Brother Gastric cancer Other Kidney cancer, primary, with metastasis from kidney to other site Social History Household Members: None Housing: Apartment Are you a primary hearing care professional to a significant other at home: No Do you presently have 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 Alert and oriented. Mood and affect appropriate. Follows and participates in conversation appropriately. Respiratory effort is unlabored. Able to transition from sit to stand unassisted. Incisions are well-healed and dry. Results Reviewed Results Reviewed: No imaging is available for review Assessment & Plan Assessment & Plan (1) Lumbar radiculitis: Code(s): M54.16 - Radiculopathy, lumbar region Category: Medical Plan The incisions are well-healed. She will follow up as needed. She was cleared for shower. Scribed for Dr. Muir by Viki Michelle, medical care manager, on 08/27/2023. I, Dr. Muir, have personally reviewed and agree with the information entered by the scribe. Coding Level of Care Code Est Pt Level 2 (93175) Diagnoses Lumbar radiculitis M54.16
== END 2023-08-27 09:24 | disposition home or self-care (01) ==
PROVIDERS: PCP Internal Medicine Geriatric Medicine; Visit Provider Internal Medicine
DX: M54.16 Radiculopathy, lumbar region (principal)
CPT/HCPCS: 99212

== ENCOUNTER → 2023-08-27 09:09 | Outpatient (BNVA) | payer OTHER, SELFPAY | PROVIDERS: PCP Internal Medicine Geriatric Medicine; Visit Provider Internal Medicine | DX: M54.16 Radiculopathy, lumbar region (principal); Z98.890 Other specified postprocedural states | CPT/HCPCS: 99212 ==

== ENCOUNTER 2024-02-03 09:27 | Outpatient (REF) | payer OTHER, SELFPAY ==
[2024-02-03 11:09] LABS: MANUAL DIFF FLAG NO
[2024-02-03 11:11] LABS: Basophils Absolute Auto 0.1 X10*3/uL (0.0-0.2); Basophils Percent Auto 0.8 % (0-2); Eosinophils Absolute Auto 0.2 X10*3/uL (0.0-0.4); Eosinophils Percent Auto 2.1 % (0-4); Hematocrit 43.7 % (37.0-47.0); Hemoglobin 14.7 g/dl (12.0-16.0); Imm Gran Abs Auto 0.02 X10*3/uL (0.00-0.03); Imm Gran Pct Auto 0.2 % (0.0-0.4); Lymphocytes Absolute Auto 3.8 X10*3/uL (1.2-4.9); Lymphocytes Percent Auto 41.9 % (20-40); Mean Corpuscular HGB Conc 33.6 g/dl (31.0-35.0); Mean Corpuscular Hemoglobin 31.5 pg (27.0-33.0); Mean Corpuscular Volume 93.8 fL (80.0-98.0); Mean Platelet Volume 11.4 fL (9.4-12.3); Monocytes Absolute Auto 0.7 X10*3/uL (0.1-1.2); Monocytes Percent Auto 8.2 % (2-11); Neutrophils Absolute Auto 4.2 x10*3/uL (2.0-8.3); Neutrophils Percent Auto 46.8 % (45-73); Platelet Count 212 X10*3/uL (160-400); Red Blood Count 4.66 X10*6/uL (4.20-5.50); White Blood Count 9.1 X10*3/uL (4.8-10.8)
[2024-02-03 11:51] LABS: Alanine Aminotransferase 25 U/L (0-31); Albumin Level 3.8 g/dL (3.5-5.0); Alkaline Phosphatase 69 U/L (39-117); Anion Gap 11 (12-20); Aspartate Amino Transferase 27 U/L (5-31); Bilirubin Total 0.4 mg/dL (0.0-1.0); Blood Urea Nitrogen 17 mg/dL (9-16); Calcium 9.1 mg/dL (8.4-10.2); Carbon Dioxide 30 mmol/L (22-29); Chloride 108 mmol/L (96-108); Estimated Glomerular Filt Rate > 60; Glucose Random 93 mg/dL (60-115); Potassium 3.7 mmol/L (3.3-5.1); Sodium 145 mmol/L (135-145)
[2024-02-05 14:13] LABS: ~HepC Num1 0.13 S/CO (0.00-0.79); ~Hepatitis C Antibody Nonreactive (Nonreactive)
== END 2024-02-03 09:28 | disposition home or self-care (01) ==
LOC: HO.HHCL 09:27
PROVIDERS: Internal Medicine Geriatric Medicine; Visit Provider Internal Medicine Medical Oncology
DX: Z11.59 Encounter for screening for other viral diseases (principal); C50.911 Malignant neoplasm of unspecified site of right female breast
CPT/HCPCS: 36415; 80053; 85025; 86803

== ENCOUNTER 2024-02-09 08:33 | Outpatient (REF) | payer OTHER, SELFPAY | END 2024-02-09 08:34 | disposition home or self-care (01) | LOC: HO.MAMMO 08:33 | PROVIDERS: PCP Internal Medicine Geriatric Medicine; Visit Provider Internal Medicine Geriatric Medicine | DX: Z12.31 Encounter for screening mammogram for malignant neoplasm of breast (principal) | CPT/HCPCS: 77063; 77067 ==

== ENCOUNTER → 2024-02-09 08:45 | Outpatient (BNV) | payer OTHER, SELFPAY | PROVIDERS: PCP Internal Medicine Geriatric Medicine; Visit Provider Internal Medicine | DX: Z12.31 Encounter for screening mammogram for malignant neoplasm of breast (principal) | CPT/HCPCS: 77063; 77067 ==

== ENCOUNTER 2024-02-13 10:00 | Outpatient (REF) | payer OTHER, SELFPAY ==
[2024-02-13 12:14] LABS: Anion Gap 9 (12-20); Blood Urea Nitrogen 20 mg/dL (9-16); Calcium 8.4 mg/dL (8.4-10.2); Carbon Dioxide 28 mmol/L (22-29); Chloride 109 mmol/L (96-108); Estimated Glomerular Filt Rate > 60; Glucose Random 91 mg/dL (60-115); Potassium 3.8 mmol/L (3.3-5.1); Sodium 142 mmol/L (135-145); TSH reflex Free T4 2.55 uIU/mL (0.32-4.0)
== END 2024-02-13 10:01 | disposition home or self-care (01) ==
LOC: HO.HHCL 10:00
PROVIDERS: Visit Provider Internal Medicine Geriatric Medicine
DX: I10 Essential (primary) hypertension (principal); E03.9 Hypothyroidism, unspecified
CPT/HCPCS: 36415; 80048; 84443

== ENCOUNTER 2024-04-15 08:55 | Outpatient (AMB) | payer OTHER, SELFPAY ==
--- NOTE | 2024-04-15 08:56 | MHC.OFFVIS ---
Vital Signs 04/15/24 09:02 Height 4 ft 11 in Weight 167 lb 2 oz BMI 33.8 Intake Visit Reasons: yearly breast exam Intake Note: This patient presents for yearly breast examination assessment. Pt c/o; report no breast complaints at this time. Chief Controller Center Required: No Accompanied by: Family/Other Allergies No Known Allergies Allergy (Verified 04/15/24 09:02) Medication List - Last Reconciled 04/15/24 by Shyam Liz MD albuterol sulfate 1 vial inhalation QID amlodipine 5 mg PO DAILY celecoxib 200 mg PO DAILY cholecalciferol (vitamin D3) (Vitamin D3) 50 mcg PO DAILY docusate sodium (Colace) 100 mg PO BID fluticasone propionate 220 mcg/actuation (Flovent HFA) 1 puff inhalation BID PRN gabapentin 600 mg PO TID levothyroxine 112 mcg PO DAILY montelukast 1 tab PO BEDTIME olopatadine 0.1% 1 drp ophthalmic (eye) BID omeprazole 1 cap PO DAILY sertraline 20 mg PO DAILY tamoxifen 20 mg PO DAILY tramadol 50 mg PO NEEDED PRN trazodone 150 mg PO BEDTIME HPI HPI yearly breast exam: Details: She had undergone right breast mastectomy with sentinel biopsy in February, for invasive ductal carcinoma which turned out to be a T1 N0 ERPR positive HER2 negative tumor. She is here for her annual examination. She denies any new complaints. She denies any palpable on the chest wall on the right nor on the left breast. Her last mammogram for the left breast was last 02/09/2024 and this was unremarkable. [facility] Medical History Asthma Hx of sciatica History of breast cancer Invasive ductal carcinoma of breast Lumbar radiculitis Lumbar and sacral arthritis Hemorrhoids Diverticulosis Hyperplastic colon polyp Blind Colon cancer screening Retinitis pigmentosa Hypothyroidism GERD (gastroesophageal reflux disease) Erythrocytosis Hypertension Lumbar facet arthropathy Bilateral primary osteoarthritis of knee Surgical History History of back surgery H/O mastectomy Hx of colonoscopy Family History Father Throat cancer Mother Throat cancer Brother Gastric cancer Lung cancer Brother Gastric cancer Other Kidney cancer, primary, with metastasis from kidney to other site Social History Household Members: None Housing: Apartment Are you a primary resident care aid to a significant other at home: No Do you presently have 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) Alcohol intake: never Patient Tobacco Use Status: Former Tobacco user Second Hand Smoke Exposure: No service: No Current occupational status: disabled Current occupation: Right Handed Female Reproductive History Menstrual Age of Menarche: 9 Review of Systems Const Denies chills and Denies fever(s) Eyes Details: Legally blind Card Denies chest pain, Denies dyspnea and Denies dyspnea on exertion Resp Denies cough, Denies dyspnea and Denies dyspnea on exertion GI Denies hematochezia and Denies change in bowel habits Denies hematuria Musc Reports back pain and Denies limited range of motion Neuro Denies focal weakness and Denies convulsions Psych Denies depression and Denies mood swings Physical Exam Vital Signs: BMI result Body Mass Index 33.8 Const General: comfortable and no acute distress Orientation/consciousness: patient oriented x3 Eyes Other: Blind Neck Neck: Yes no lymphadenopathy Chest Other: No palpable mass on the chest wall on the mastectomy site in the right No palpable breast masses on the left No axillary lymphadenopathy on both sides Resp Auscultation: clear to auscultation bilaterally Cardio Rhythm: regular rhythm GI Palpation (GI): Soft to palpation, nontender and no guarding Neuro General: patient oriented x3 Assessment & Plan Assessment & Plan (1) History of breast cancer: Code(s): Z85.3 - Personal history of malignant neoplasm of breast Category: Medical Plan: She continues to do well after mastectomy and sentinel biopsy of the right breast for invasive ductal cancer, T1 N0 in 2020. Her last mammogram for the left breast last January, was unremarkable Current exam does not suggest any mass on the left breast now on the mastectomy site on the left chest wall . She is to continue with mammograms for the left breast. She is on tamoxifen treatment. She does follow up with Oncology as well. I will see her again in the office next year. Coding Level of Care Code Est Pt Level 3 (48652) Complex EM visit Add On G2211 Diagnoses History of breast cancer Z85.3
[2024-04-15 09:02] VITALS: BMI 33.8
--- OUTSIDE RECORDS SUMMARY | 2024-04-15 09:46 | XMS_ITS | Encounter Summary ---
Author Organization [employer] Address [address] [place] [address] [address] [place] [address] Care Team Providers Care Airport Shuttle Driver Name Role Phone Name, Surinder MCDANIEL Primary Care Provider [phone] Encounter Details Date Type Department Care Team (Late st Contact Info) Description 02/26/2022 Orders Only [facility] [address] [place], [place] [id number] Bel Hernandez LPN Social History Tobacco Use Types Packs/Day Years Used Date Smoking Tobacco: Never Assessed Comments Unknown Sex and Gender Information Value Date Recorded Sex Assigned at Female 12/10/2021 10:14 AM EDT Legal Sex Female 10:14 AM EDT Gender Identity Female 12/10/2021 10:14 AM EDT Sexual Orientation Straight 12/10/2021 10 :14 AM EDT documented as of this encounter Plan of Treatment Upcoming Encounters Date Type Department Care Team (Late st Contact Info) Description 06/21/2024 8:00 AM EDT Office Visit [facility] [address] [place], [place] [id number] Geo Paceine [address] [place], [place] [id number] documented as of this encounter Visit Diagnoses Not on filedocumented in this encounter Care Teams Airport Shuttle Driver Relationship Specialty Start Date End Date Name, MD Surinder [address] [place] [address] PCP - General Family Medicine 04/12/15 documented as of this encounter
--- OUTSIDE RECORDS SUMMARY | 2024-04-15 09:46 | XMS_ITS | Encounter Summary ---
Author Organization [employer] Address [address] [place] [address] Care Team Providers Care Tribal Delegate Name Role Phone Name, Surinder MCDANIEL Primary Care Provider Encounter Details Date Type Department Care Team (Late st Contact Info) Description 12/18/2023 Telephone [facility] [address] [place] [address] Teodora Pabon, PANCHO [address] [place], [place] [id number] Social History Tobacco Use Types Packs/Day Years Used Date Smoking Tobacco: Former Cigarettes Passive Smoke Exposure: Past Smokeless Tobacco: Never Alcohol Use Standard Drinks/Week Comments Never 0 (1 standard drink = 0.6 oz pur e alcohol) Alcohol Answer Date Recorded Frequency of Alcohol Consumption Not on file 07/28/2023 Average Number of Drinks Not on file 024 Frequency of Binge Drinking Not on file 07/11 Score 0 07/28/2023 Depression Answer Date Recorded Patient Health Questionnaire-9 Score 0 07/28/2023 Patient Health Questionnaire-9 Score 0 07/28/2023 Last PHQ-9: Questionnaire Data Not on file 0 07/28/2023 Housing Stability Answer Date Recorded What is your housing situation today? I have dave velasquez 07/28/[address] you li ve. Do you have problems with any of the following? None of the above 07/28/2023 Food Insecurity Answer Date Recorded Within the past 12 months, y ou worried that your food would run out before you got money to buy more: Never True 07/28/2023 Within the past 12 months,th e food you bought just didn't last and you didn't have enough money to get more: Never True Transportation Answer Date Recorded In the past 12 months, has l ack of transportation kept you from medical appts, meetings, work or from getting things needed for daily living? No 07/28/2023 Utilities Answer Date Recorded In the past 12 months, has t he electric, gas, oil or water company threatened to shut off services in your home? No 07/28/2023 Depression Answer Date Recorded Patient Health Questionnaire-2 Score 0 07/28/2023 Internet Access Answer Date Recorded Internet Access Q1 No 10/13/2023 Internet Access Q2 Not on file 10/13/2023 Comments Unknown Sex and Gender Information Value Date Recorded Sex Assigned at Female 12/10/2021 10:14 AM EDT Legal Sex Female 10:14 AM EDT Gender Identity Female 12/10/2021 10:14 AM EDT Sexual Orientation Straight 12/10/2021 10 :14 AM EDT documented as of this encounter Miscellaneous Notes * Telephone Encounter - Nathalia Patton - 12/18/2023 3:17 PM EST Patient daughter called to make sure the medication that was does not affect her cancer medication please patient back a call documented in this encounter Plan of Treatment Upcoming Encounters Date Type Department Care Team (Late st Contact Info) Description 06/21/2024 8:00 AM EDT Office Visit [facility] [address] [place] [address] María Pace [address] [place] [address] documented as of this encounter Visit Diagnoses Not on filedocumented in this encounter Additional Health Concerns Assessment Noted Time PHQ-9 Depression Total Score: 0 07/28/19 24 11:01 AM EDT documented as of this encounter Care Teams Tribal Delegate Relationship Specialty Start Date End Date Name, MD Surinder [address] [place] [address] PCP - General Family Medicine 04/12/15 documented as of this encounter
--- OUTSIDE RECORDS SUMMARY | 2024-04-15 09:46 | XMS_ITS | Clinical Summary ---
Author Organization [employer] Address [address] [place] [address] Care Team Providers Care Hostel Parent Name Role Phone Name, Surinder MCDANIEL Primary Care Provider [phone] Allergies Active Allergy Reactions Criticality Noted Date Comments Amoxicillin Diarrhea 10/08/2023 Medications tamoxifen (Nolvadex) 20 MG chemo tablet Take 20 mg by mouth in the morning. 05/01/19 23 Active lidocaine (Lidoderm) 5 % patch Apply 1 patch topically in the morning. Remove & discard patch within 12 hours or as directed by MD. 15 patch 2 09/26/19 23 Active montelukast (Singulair) 10 MG tablet TAKE ONE TABLET BY MOUTH EVERY EVENING 90 tablet 1 05/01/19 24 Active omeprazole (PriLOSEC) [address] capsule TAKE ONE CAPSULE BY MOUTH EVERY DAY BEFORE A MEAL. 90 capsule 3 09/25/19 24 Active acetaminophen (Tylenol) 500 MG tablet Take 500 mg by mouth every 6 (six) hours if needed. 12/17/19 14 Active albuterol (ProAir HFA) 108 (90 Base) MCG/ACT inhaler Inhale 2 puffs every 4 (four) hours. 07/29/19 19 Active cholecalciferol (Vitamin D-3) 50 MCG (2000 UT) tablet Take 50 mcg by mouth Once per day. 09/13/19 24 Active Eye Allergy Itch Relief 0.2 % ophthalmic solution INSTILL 1 DROP IN TO BOTH EYES ONCE A DAY. 10/01/19 24 Active fluticasone furoate (Arnuity Ellipta) 200 MCG/ACT inhaler INHALE 1 PUFF BY MOUTH ONCE A DAY. RINSE MOUTH AFTER USE. 30 each 3 12/02/19 24 Active gabapentin (Neurontin) 600 MG tabletIndication s:Chronic pain syndrome TAKE ONE TABLET BY MOUTH THREE TIMES A DAY 90 tablet 2 01/02/20 24 Active levothyroxine (Synthroid, Levoxyl) 112 MCG tabletIndication s:Hypothyroidism , unspecified type TAKE 1 TABLET BY MOUTH ONCE PER DAY. 90 tablet 01/27/20 24 Active traZODone (Desyrel) 150 MG tabletIndication s:Exacerbation of chronic back pain TAKE ONE TABLET (150 MG) BY MOUTH AT BEDTIME. 90 tablet 1 02/02/20 24 Active cyanocobalamin (Vitamin B-12) 1000 MCG tablet Take 1 tablet (1,000 mcg) by mouth Once per day. 90 tablet 02/02/20 24 Active amLODIPine (Norvasc) 10 MG tablet Take 1 tablet (10 mg) by mouth Once per day. 30 tablet 11 02/12/19 25 026 Active sertraline (Zoloft) 50 MG tabletIndication s:Essential hypertension TAKE ONE TABLET BY MOUTH EVERY DAY 30 tablet 4 03/30/19 25 Active sertraline (Zoloft) 50 MG tabletIndication s:Essential hypertension TAKE ONE TABLET BY MOUTH EVERY DAY 30 tablet 4 10/20/19 24 025 Discontinued Active Problems Problem Noted Date Diagnosed Date Abnormal mammogram of right breast 05/01/2023 Bilateral primary osteoarthritis of knee 024 Colon cancer screening 05/01/2023 Diverticulosis 05/01/2023 History of breast cancer 05/01/2023 Hyperplastic colon polyp 05/01/2023 Lumbar and sacral arthritis 05/01/2023 Lumbar radiculitis 05/01/2023 GERD (gastroesophageal reflux disease) Invasive ductal carcinoma of breast 05/01/2023 Knee pain, right 05/01/2023 Cancer of right breast 05/01/2023 Mixed anxiety and depressive disorder 02/28/2022 Malignant neoplasm of female breast 02/28/2022 Seasonal allergic reaction 02/28/2022 History of right mastectomy 03/07/2020 Infiltrating ductal carcinoma of breast 02/21/19 Mild intermittent asthma 07/03/2018 Calcaneal spur 04/06/2018 Heel pain 01/27/2018 Disorder of vein 11/24/2017 Erythrocytosis 05/20/2017 Facial wart 02/17/2017 Essential hypertension 02/17/2017 Knee pain 02/17/2017 Constipation 10/13/2015 Lumbosacral radiculopathy 10/13/2015 Cobalamin deficiency 07/05/2015 Hypothyroidism 05/03/2015 Vitamin D deficiency 03/03/2012 Gastroesophageal reflux disease 12/16/2011 Carpal tunnel syndrome 12/16/2011 Backache 07/23/2011 Assessment & Plan (09/25/2022 2:38 PM EDT): No new motor neuro deficit. Acute on chronic -Will check x-ray rule out compression fractor and hip x-ray given mechanism of fall. -Continue current pain medications with the addition of lidocaine patches and tylenol. -Follow up with pian management and pcp that is already scheduled. Retinitis pigmentosa 06/03/2011 Hemorrhoids 08/14/2010 Blindness of both eyes 06/03/2007 Resolved Problems Problem Noted Date Diagnosed Date Resolved Date Pneumonia due to infectious organism 07/03/2018 12/25/2022 Encounters Date Type Department Care Team Description 03/27/2024 Refill [facility] [place] [address] Surinder Berry MD Essential hypertension 02/27/2024 9:30 AM EST Telemedicine [facility] [place] [address] Gillian Zamudio RN Essential hypertension [I10] 02/27/2024 Travel 02/13/2024 9:15 AM EST Office Visit [facility] [place] [address] Surinder Berry MD Essential hypertension (Primary Dx); Hypothyroidism, unspecified type; Chronic midline low back pain, unspecified whether sciatica present; Encounter for immunization 02/13/2024 Telephone [facility] [place] [address] Surinder Berry MD Medication Question 02/12/2024 Telephone [facility] [place] [address] Ruthie Garcia MA Chart Prep 02/03/2024 Orders Only GENERIC EXTERNAL DATA DEPARTMENT Provider, Generic External Data 01/30/2024 Refill [facility] [place] [address] Judy Covarrubias MD 01/30/2024 Refill [facility] MEDICINE [address] [place] [address] Name, MD Surinder Exacerbation of chronic back pain 01/26/2024 Refill [facility] [address] [place] [address] Name, MD Surinder Hypothyroidism, unspecified type from Last 3 Months Immunizations Name Administration Dates Next Due Hep A, Adult 06/25/2012,12/16/2011 Hep B, adult 03/02/2008,10/02/2007,09/06/2007 Influenza injectable quadriv alent IIV4 with preservative 12/17/2018,11/17/2017 Influenza injectable quadriv alent preservative free 11/29/2022,10/31/2021,11/20/2020,11/02,11/02/2016,11/22/2014 Influenza, High Dose Seasona l, Preservative Free 10/30/2023 Influenza, IIV3, injectable 10/09/2010 Influenza, Split (incl. sony fied surface antigen) 12/07/2012,12/16/2011 MMR 10/09/2010 Moderna Covid-19 Vaccine 6+ Bivalent 12/07/2021 Pfizer Covid-19 Vaccine 12+ 02/13/2024 Pneumococcal Conjugate PCV 20 05/01/2023 Pneumococcal Polysaccharide PPSV23 09/22/2018 TD (adult), 2 Lf tetanus tox oid, preservative free, adsorbed 10/31/2021,12/24/2005 Tdap 10/09/2010 Varicella 11/09/2010,10/09/2010 Zoster, Recombinant 12/24/2019,04/22/2019 Social History Tobacco Use Types Packs/Day Years Used Date Smoking Tobacco: Former Cigarettes Passive Smoke Exposure: Past Smokeless Tobacco: Never Tobacco Cessation:Counseling Given: Not Answered Alcohol Use Standard Drinks/Week Comments Never 0 [...] Orientation Straight 12/10/2021 10 :14 AM EDT Last Filed Vital Signs Vital Sign Reading Time Taken Comments Blood Pressure 149/79 02/13/2024 9:21 AM EST Pulse 75 02/13/2024 9:21 AM EST Temperature 36.1 ??C (96.9 ??F) 02/13/2024 9:21 AM ES T Respiratory Rate 21 02/13/2024 9:21 AM EST Oxygen Saturation 98% 02/13/2024 9:21 AM EST Inhaled Oxygen Concentration - - Weight 75.2 kg (165 lb 12.8 oz) 02/13/2024 9:21 AM EST Height 149.9 cm (4' 11 ) 02/13/2024 9:21 AM EST Body Mass Index 33.49 02/13/2024 9:21 AM EST Plan of Treatment Upcoming Encounters Date Type Department Care Team (Late st Contact Info) Description 06/21/2024 8:00 AM EDT Office Visit [facility] DENTAL [address] [place] [phone] María Pace [address] [place] [address] Health Maintenance Due Date Last Done Comments CT Colonography 1960 FIT DNA/Cologuard 1960 FIT 1960 FOBT 1960 Sigmoidoscopy 1960 RSV Patients and Patients Aged 60 years or older (1 - Risk 60-74 years 1-dose series) 2018 Dental Oral Exam 11/29/2023 05/29/2023, 05/03/2022 Dental X-Ray: Bitewings 05/29/2024 05/29/19 24, 04/14/2023, 05/03/2022 Dental Prophylaxis 06/14/2024 12/15/2023, 06/11/2023 Alcohol/Substance Use Screening 07/27/2024 07/28/2023 Depression Screening 07/27/2024 07/28/2023, 07/28/19 24 SDOH Screening 07/27/2024 07/28/2023 Mammogram 02/08/2025 02/09/2024, 01/11, 01/30/2022, Additional history exists Tobacco Screening 02/12/2025 02/13/2024 Dental X-Ray: Full Mouth 05/29/2026 05/29/2023 Lipid Panel 03/01/2027 03/01/2022, 05/04/2021 Cervical Cancer Screening 05/09/2027 HPV/Cotest 05/09/2027 05/08/2022, 04/16/2017 Pap Smear 05/09/2027 05/08/2022, 04/16/2017 Colonoscopy 01/20/2030 01/21/2020, 08/01/2009 Colorectal Cancer Screening 01/20/2030 DTaP/Tdap/Td Vaccines (3 - Td or Tdap) 11/01/2031 10/31/2021, 10/09/2010, 12/24/2005 Hepatitis B Vaccines Completed 03/02/2008, 10/02/2007, 09/06/2007 Hepatitis A Vaccines Aged Out 06/25/2012, 12/16/19 12 No longer eligible based on patient's age to complete this topic Zoster Vaccines Completed 12/24/2019, 04/22/2019 Pneumococcal Vaccine: 50+ Years Completed 05/01/2023, 09/22/2018 Influenza Vaccine Completed 10/30/2023, , 10/31/2021, Additional history exists Hepatitis C Screening Completed 02/03/2024 COVID-19 Vaccine Completed 02/13/2024, , 01/09/2021, Additional history exists HIB Vaccines Aged Out No longer eligi ble based on patient's age to complete this topic HPV Vaccines Aged Out No longer eligi ble based on patient's age to complete this topic IPV Vaccines Aged Out No longer eligi ble based on patient's age to complete this topic Meningococcal Vaccine Aged Out No espideh chong eligible based on patient's age to complete this topic RSV under 20 months Aged Out No longe r eligible based on patient's age to complete this topic Rotavirus Vaccines Aged Out No longer eligible based on patient's age to complete this topic Procedures Procedure Name Priority Date/Time Associated Diagnosis Comments TSH W/REFLEX TO FT4 Routine 02/13/2024 1 0:03 AM EST Hypothyroidism, unspecified type BASIC METABOLIC PANEL Routine 02/13/2024 10:03 AM EST Essential hypertension BI MAMMOGRAM SCREENING TOMOSYNTHESIS LEFT Routine 02/09/2024 8:45 AM EST COMPREHENSIVE METABOLIC PANEL Routine 02/03/2024 9:29 AM EST CBC WITH AUTO DIFFERENTIAL Routine 02/03/2024 9:29 AM EST HEPATITIS C AB W/REFL TO HCV RNA, QN, PCR Routine 02/03/2024 9:29 AM EST Need for hepatitis C screening test PROPHYLAXIS - ADULT Routine 12/15/2023 8 :00 AM EST INTRAORAL - COMPLETE SERIES OF RADIOGRAPHIC IMAGES Routine 05/29/2023 8:00 AM EDT PERIODIC ORAL EVALUATION - ESTABLISHED PATIENT Routine 05/29/2023 8:00 AM EDT IMAGE-GUIDED PAP W/AGE BASED SCR PROTOCOLS Routine 05/08/2022 11:07 AM EDT Routine cervical smear LIPID PANEL, STANDARD Routine 03/01/2022 10:04 AM EST HM COLONOSCOPY Routine 01/21/2020 from Last 3 Months or Most Recently Relevant to Health Maintenance Results * TSH W/Reflex to FT4 (02/13/2024 10:03 AM EST) TSH reflex Free T4 2.55 0.32 - 4.0 uIU/mL [facility] Blood Venous blood specimen / Unknown 02/13/2024 10:03 AM EST 02/13/2024 11:03 AM EST us Surinder Name MD LAB BLOOD ORDERABLES Final Resul t [facility] [address] [place] [phone] * (ABNORMAL) Basic Metabolic Panel (02/13/2024 10:03 AM EST) Sodium 142 135 - 145 mmol/L [facility] Potassium 3.8 3.3 - 5.1 mmol/L [facility] Chloride 109(H) 96 - 108 mmol/L [facility] Carbon Dioxide 28 22 - 29 mmol/L [facility] Anion Gap 9(L) 12 - 20 [facility] Urea Nitrogen (BUN) 20(H) 9 - 16 mg/dL [facility] Creatinine, Serum 0.89 0.5 - 1.4 mg/dL [facility] Estimated Glomerular Filt Rate >60 [facility] Comment:Chronic Kidney Disea se: Estimated GFR < 60 mL/min/[id number] Kidney Disease: Estimated GFR < 15 mL/min/1.73m2 Glucose 91 60 - 115 mg/dL [facility] Calcium 8.4 8.4 - 10.2 mg/dL [facility] Blood Venous blood specimen / Unknown 02/13/2024 10:03 AM EST 02/13/2024 11:03 AM EST us Surinder Name MD LAB BLOOD ORDERABLES Final Resul t [facility] [address] [facility] [place] [address] [phone] * BI Mammogram Screening Tomosynthesis Left (02/09/2024 8:45 AM EST) Anatomical Region Laterality Modality Breast Left Mammography 02/09/2024 8:45 AM EST Narrative 02/21/2024 9:41 AM EST ? [facility] [place] ? [address] ?[place] [address] ? Mammography Report ? Signed with Addenda ? Patient: Manjit,Kristina ?MR#: [id number] ? : 1960 ?Acct:[id number] ? Age/Sex: 63 / F ?ADM Date: 12/30/24 ? Loc: HO.MAMMO ? Attending Dr: Surinder Name MD ? Ordering Physician: Name,Surinder MD ?Results: 1Negative ? Date of Service: 12/30/24 ?Follow Up: 1 Year From Orig ?? inal Mammogram ? Procedure(s): MM tomosynthesis screening LT ?? Accession Number(s): [id number] ? cc: Name,Surinder MD ?ADDENDUM ? ADDENDUM #1 ? ADDENDUM: ?? The current mammogram has been reviewed and remains BI-RADS as follows ? OVERALL ASSESSMENT: ?? BI-RADS 1 - Negative ? RECOMMENDATION: ?? 1 year F/U ? Electronically signed by: ??Ashely Hu DO ??02/25/2024 01:47 PM EST ?? RP ? Addendum Dictated By: ?Ashely Hu, DO ? Addendum Signed By: ? <Electronically signed by Ashely Hu, DO in OV> ? 02/25/24 1347 ?? Addendum Cosigned By: ? DD/DT: 02/08 ? TD/TT: 02/08 ? ADDENDUM #1 ? ADDENDUM: ?? The current mammogram has been reviewed and remains BI-RADS as follows ? OVERALL ASSESSMENT: ?? BI-RADS 1 - Negative ? RECOMMENDATION: ?? 1 year F/U ? Electronically signed by: ??Ashely Hu DO ??02/25/2024 01:47 PM EST ?? RP ? ORIGINAL REPORT ? EXAMINATION: ?? MM SCREENING DIGITAL BREAST TOMOSYNTHESIS, LEFT ? CLINICAL INFORMATION: ? Screening. Asymptomatic. ??Right mastectomy. ? COMPARISON: ?? Mammography: This study is compared with prior exams dating back to ? TECHNIQUE: ?? Digital breast tomosynthesis is performed in both the craniocaudal and ?? mediolateral oblique views along with computer-aided detection (CAD). ? Synthesized 2D images are generated from the tomosynthesis. ? FINDINGS: ?? The breasts are heterogeneously dense, which may obscure small masses ?? (ACR BI-RADS breast composition Category c). ? There are no significant masses, abnormal calcifications, or other ?? abnormalities. ? IMPRESSION: ?? No mammographic evidence of malignancy. ? ASSESSMENT: ? BI-RADS BI-RADS 1 - Negative ? RECOMMENDATION: ?? Routine annual mammography screening. ? 1 year F/U ? This examination should not preclude the clinical evaluation of a ?? suspicious palpable abnormality. ? This patient's information was entered into a reminder system with a ?? target due date for their next mammogram. ? Electronically signed by: ??Ashely Hu DO ??02/21/2024 09:38 AM EST ?? RP ? MM/MM tomosynthesis screening LT ?? IMPRESSION: ?? No mammographic evidence of malignancy. ? ASSESSMENT: ? BI-RADS BI-RADS 1 - Negative ? RECOMMENDATION: ?? Routine annual mammography screening. ? 1 year F/U ? This examination should not preclude the clinical evaluation of a ?? suspicious palpable abnormality. ? This patient's information was entered into a reminder system with a ?? target due date for their next mammogram. ? Electronically signed by: ??Ashely Hu DO ??02/21/2024 09:38 AM EST ?? RP ? Dictated By: ?Ashely Hu DO ? Signed By: ?<Electronically signed by Ashely Hu, DO in OV> ? 02/25/24 1347 ? DD/ 0845 ? TD/TT: 02/09/24 0900 ? [employer] Worker: ? Procedure Note Vincent, Image - 03/07/2024 [facility] [address] [place] [address] Dr. [place], [place] [address] Mammography Report Signed with Makayla Patient: Bharath Saravia#: [id number] : 9Acct:[id number] Age/Sex: 63 / FADM Date: 02/09/24 Loc: HO.MAMMO Attending DrBirgit Berry MD Ordering Physician: Surinder Berryesults: 1Negative Date of Service: 02/09/24Follow Up: 1 Year From Orig inal Mammogram Procedure(s): MM tomosynthesis screening LT Accession Number(s): [id number] cc: Name,Surinder MCDANIEL ADDENDUM ADDENDUM #1 ADDENDUM: The current mammogram has been reviewed and remains BI-RADS as follows OVERALL ASSESSMENT: BI-RADS 1 - Negative RECOMMENDATION: 1 year F/U Electronically signed by: Ashely Hu DO 02/25/2024 01:47 PM EST RP Addendum Dictated By: Ashely Hu DO Addendum Signed By: <Electronically signed by DO Tushar in OV> 02/25/24 1347 Addendum Cosigned By: DD/ TD/TT: 02/09/24 ADDENDUM #1 ADDENDUM: The current mammogram has been reviewed and remains BI-RADS as follows OVERALL ASSESSMENT: BI-RADS 1 - Negative RECOMMENDATION: 1 year F/U Electronically signed by: Ashely Hu DO 02/25/2024 01:47 PM EST RP ORIGINAL REPORT EXAMINATION: MM SCREENING DIGITAL BREAST TOMOSYNTHESIS, LEFT CLINICAL INFORMATION: Screening. Asymptomatic. Right mastectomy. COMPARISON: Mammography: This study is compared with prior exams dating back to TECHNIQUE: Digital breast tomosynthesis is performed in both the craniocaudal and mediolateral oblique views along with computer-aided detection (CAD). Synthesized 2D images are generated from the tomosynthesis. FINDINGS: The breasts are heterogeneously dense, which may obscure small masses (ACR BI-RADS breast composition Category c). There are no significant masses, abnormal calcifications, or other abnormalities. IMPRESSION: No mammographic evidence of malignancy. ASSESSMENT: BI-RADS BI-RADS 1 - Negative RECOMMENDATION: Routine annual mammography screening. 1 year F/U This examination should not preclude the clinical evaluation of a suspicious palpable abnormality. This patient's information was entered into a reminder system with a target due date for their next mammogram. Electronically signed by: Ashely Hu DO 02/21/2024 09:38 AM EST RP MM/MM tomosynthesis screening LT IMPRESSION: No mammographic evidence of malignancy. ASSESSMENT: BI-RADS BI-RADS 1 - Negative RECOMMENDATION: Routine annual mammography screening. 1 year F/U This examination should not preclude the clinical evaluation of a suspicious palpable abnormality. This patient's information was entered into a reminder system with a target due date for their next mammogram. Electronically signed by: Ashely Hu DO 02/21/2024 09:38 AM EST RP Dictated By: Ashely Hu DO Signed By: <Electronically signed by Ashely Hu DO in OV> 02/25/24 1347 DD/ 0845 TD/TT: 02/09/24 0900 [employer] Worker: us Surinder Name MD ARNOLD BI PROCEDURES Edited Result - Final * (ABNORMAL) CBC auto differential (02/03/2024 9:29 AM EST) White Blood Count 9.1 4.8 - 10.8 X10*3/uL [facility] Red Blood Count 4.66 4.20 - 5.50 X10*6/uL [facility] Hemoglobin 14.7 12.0 - 16.0 g/dl [facility] Hematocrit 43.7 37.0 - 47.0 % [facility] Mean Corpuscular Volume 93.8 80.0 - 98.0 fL [facility] Mean Corpuscular Hemoglobin 31.5 27.0 - 33.0 pg [facility] Mean Corpuscular HGB Conc 33.6 31.0 - 35.0 g/dl [facility] Red Cell Distribution Width 14.0 11.0 - 16.0 % [facility] Platelet Count 212 160 - 400 X10*3/uL [facility] Mean Platelet Volume 11.4 9.4 - 12.3 fL [facility] Neutrophils Percent Auto 46.8 45 - 73 % [facility] Imm Gran Pct Auto 0.2 0.0 - 0.4 % [facility] Lymphocytes Percent Auto 41.9(H) 20 - 40 % [facility] Monocytes Percent Auto 8.2 2 - 11 % [facility] Eosinophils Percent Auto 2.1 0 - 4 % [facility] Basophils Percent Auto 0.8 0 - 2 % [facility] NRBC Pct Auto 0.0 0.0 - 0.2 /100WBC [facility] Neutrophils Absolute Auto 4.2 2.0 - 8.3 x10*3/uL [facility] Imm Gran Abs Auto 0.02 0.00 - 0.03 X10*3/uL [facility] Lymphocytes Absolute Auto 3.8 1.2 - 4.9 X10*3/uL [facility] Monocytes Absolute Auto 0.7 0.1 - 1.2 X10*3/uL [facility] Eosinophils Absolute Auto 0.2 0.0 - 0.4 X10*3/uL [facility] Basophils Absolute Auto 0.1 0.0 - 0.2 X10*3/uL [facility] NRBC Abs Auto 0.000 0.0 - 0.012 X10*3/uL [facility] 02/03/2024 9:29 AM EST 02/03/2024 11:02 AM EST us Generic External Data Provider LAB BLOOD ORDERAB LES Final Result Performing Organization Address City/[facility] Co de Phone Number [facility] [address] [place] [phone] * Hepatitis C Antibody with Reflex to HCV, RNA, Quantitative, Real-Time PCR (02/03/2024 9:29 AM EST) Hepatitis C Antibody Nonreactive Nonreactive [facility] Comment:Antibodies to HCV no t detected; does not exclude early acuteHCV infection. Blood Venous blood specimen / Unknown 02/03/2024 9:29 AM EST 02/03/2024 11:02 AM EST Surinder Berry MD LAB BLOOD ORDERABLES Final Resul t [facility] [address] [place] [phone] * (ABNORMAL) Comprehensive Metabolic Panel (02/03/2024 9:29 AM EST) Sodium 145 135 - 145 mmol/L [facility] Potassium 3.7 3.3 - 5.1 mmol/L [facility] Chloride 108 96 - 108 mmol/L [facility] Carbon Dioxide 30(H) 22 - 29 mmol/L [facility] Anion Gap 11(L) 12 - 20 [facility] Urea Nitrogen (BUN) 17(H) 9 - 16 mg/dL [facility] Creatinine, Serum 0.89 0.5 - 1.4 mg/dL [facility] Estimated Glomerular Filt Rate >60 [facility] Comment:Chronic Kidney Disea se: Estimated GFR < 60 mL/min/[id number] Kidney Disease: Estimated GFR < 15 mL/min/1.73m2 Glucose 93 60 - 115 mg/dL [facility] Calcium 9.1 8.4 - 10.2 mg/dL [facility] Bilirubin, Total 0.4 0.0 - 1.0 mg/dL [facility] Aspartate Amino Transferase 27 5 - 31 U/L [facility] Alanine Aminotransferase 25 0 - 31 U/L [facility] Total Protein 7.0 6.5 - 8.0 g/dL [facility] Albumin Level 3.8 3.5 - 5.0 g/dL [facility] Alkaline Phosphatase 69 39 - 117 U/L [facility] 02/03/2024 9:29 AM EST 02/03/2024 11:02 AM EST us Generic External Data Provider LAB BLOOD ORDERAB LES Final Result [facility] [address] [place] [phone] [phone] * Image-Guided Pap with Age-Based Screening Protocols (05/08/2022 11:07 AM EDT) Comment [facility] Comment: This order for age-based cervical cancer and STI screening follows ACOG guidelines(PB 168, 140, BFX194). See individual assays for performing site location. Clinical Information: None given [facility] LMP: NONE GIVEN Backtrace I/Ot Prev. PAP: NONE GIVEN Backtrace I/Ot Prev. BX: NONE GIVEN [facility] SOURCE: None given [facility]trace I/Ot Statement Of Adequacy: [facility] Comment: Satisfactory for evaluation. Endocervical/transformation zone component absent. Interpretation/ Result: Negative for intraepithelial lesion or malignancy. [facility] COMMENT: This Pap test has been evaluated with computer assisted technology. [facility] Cytotechnologis t: [facility] Comment: SXA, CT(ASCP) CT screening location: [address] ??[phone] (Always Message) [facility] Comment: EXPLANATORY NOTE: The Pap is a screening test for cervical cancer. It is not a diagnostic test and is subject to false negative and false positive results. It is most reliable when a satisfactory sample, regularly obtained, is submitted with relevant clinical findings and history, and when the Pap result is evaluated along with historic and current clinical information. HPV nRNA E6/E7 Not Detected Not Detected [facility] Comment: Methodology: Pathologist-Mediated Amplification This assay detects E6/E7 viral messenger RNA (mRNA) from 14 high-risk HPV types (16,18,31,33,35,39,45,51,52,56,58,59,66,68). Cervical sources are required for HPV testing. If a vaginal source from a patient who has had a total hysterectomy with removal of cervix was submitted, please contact the testing laboratory for alternative testing options. For additional information, please refer to http://education.Zaplee/faq/FFW162r7 (This link if provided for information/ educational purposes only.) Cytology specimen container (physical object) 05/08/2022 11:07 AM EDT 05/09/2022 2:04 AM EDT Marycruz MARTINEZ LAB BLOOD ORDERABLES Adelita raffy Result Performing Organization Address City/[facility]/ZIP Co de Phone Number [facility] [address], [place] [address] [employer] [place] [facility] 200 [place] [address] * (ABNORMAL) Lipid Panel, Standard (03/01/2022 10:04 AM EST) Cholesterol, Total 187 <200 mg/dL [employer] [place] [facility] HDL Cholesterol 75 > OR = 50 mg/dL [employer] [place] [facility] Triglycerides 191(H) <150 mg/dL [employer] [place] [facility] LDL Cholesterol 83 mg/dL (calc) [employer] [place] [facility] Comment: Reference range: <100 Desirable range <100 mg/dL for primary prevention; ?? <70 mg/dL for patients with CHD or diabetic patients with > or = 2 CHD risk factors. LDL-C is now calculated using the Ac-Nancy calculation, which is a validated novel method providing better accuracy than the Friedewald equation in the estimation of LDL-C. Ac SS et al. EFFIE. 2013;310(19): 0796-9829 (http://education.OneTwoTrip.Currensee/faq/STM078) Chol/HDLC Ratio 2.5 <5.0 (calc) [employer] [place] [facility] Non-HDL Cholesterol 112 <130 mg/dL (calc) [employer] [place] [facility] Comment: For patients with diabetes plus 1 major ASCVD risk factor, treating to a non-HDL-C goal of <100 mg/dL (LDL-C of <70 mg/dL) is considered a therapeutic option. 03/01/2022 10:0 4 AM EST 03/01/2022 10:05 AM EST Narrative [facility] - 03/02/2022 3:29 AM EST FASTING:YES FASTING: YES Surinder Berry MD LAB BLOOD ORDERABLES Final Resul t [facility] 200 [facility], 3rd Fl, [place] [address] [employer] [facility] [address] , ([address]) [place] [address] * Colonoscopy (01/21/2020) Colonoscopy Normal Normal Comment:to be repeated in 10 yrs us Historical Provider HEALTH MAINTENANCE Final Result from Last 3 Months or Most Recently Relevant to Health Maintenance Insurance [facility] D[facility] - [facility] Advance Directives Documents on File Type Date Recorded 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
--- OUTSIDE RECORDS SUMMARY | 2024-04-15 09:46 | XMS_ITS | Encounter Summary ---
Author Organization [employer] Address [address] [place] [address] 7 [place] [address] Care Team Providers Care Body Builder Apprentice Name Role Phone Name, Surinder MCDANIEL Primary Care Provider [phone] Encounter Details Date Type Department Care Team (Latest Contact Info) Description 03/01/2021 Abstract [facility] CONVERSIONS Dental, Provider, DDS Social History Tobacco Use Types Packs/Day Years [...] Description 06/21/2024 8:00 AM EDT Office Visit [facility] DENTAL [address] [place], [place] [phone] María Pace 91 [place], [place] [phone] documented as of this encounter Visit Diagnoses Not on filedocumented in this encounter Care Teams Body Builder Apprentice Relationship Specialty Start Date End Date Name, MD Surinder [address] [place] [address] PCP - General Family Medicine 04/12/15 documented as of this encounter
--- OUTSIDE RECORDS SUMMARY | 2024-04-15 09:46 | XMS_ITS | Encounter Summary ---
Author Organization [employer] Address [address] [facility] 7t [place] [address] Care Team Providers Care Assembler Convertible Top Name Role Phone Name, Surinder MCDANIEL Primary Care Provider Encounter Details Date Type Department Care Team ([facility] Contact Info) Description 05/06/2022 Orders Only [facility] CHC MED & PEDS [address] [place], [place] [phone] Nadja Vanegas LPN Social History Tobacco Use Types Packs/Day Years Used Date Smoking Tobacco: Never Passive Smoke Exposure: Never Smokeless Tobacco: Never Alcohol Use Standard Drinks/Week Comments Never 0 (1 standard drink = 0.6 oz pur e alcohol) Comments Unknown Sex and Gender Information Value Date Recorded Sex Assigned at Female 12/10/2021 10:14 AM EDT Legal Sex Female 10:14 AM EDT Gender Identity Female 12/10/2021 10:14 AM EDT Sexual Orientation Straight 12/10/2021 10 :14 AM EDT COVID-19 Exposure Response Date Recorded In the last 10 days, have yo u been in contact with someone who was confirmed or suspected to have Coronavirus/COVID-19? No / Unsure 05/08/2022 9:59 AM EDT documented as of this encounter Plan of Treatment Upcoming Encounters Date Type Department Care Team ([facility] Contact Info) Description 06/21/2024 8:00 AM EDT Office Visit [facility] DENTAL 91 [place] [address] María Pace 91 [place], [place] [phone] documented as of this encounter Visit Diagnoses Not on filedocumented in this encounter Care Teams Assembler Convertible Top Relationship Specialty Start Date End Date Name, MD Surinder [address] [place] [address] PCP - General Family Medicine 04/12/15 documented as of this encounter
--- OUTSIDE RECORDS SUMMARY | 2024-04-15 09:46 | XMS_ITS | Encounter Summary ---
Author Organization [employer] Address [address] [place] [address] 7 [place] [address] Care Team Providers Care Senior Manager Creative Services Name Role Phone Name, Surinder MCDANIEL Primary Care Provider [phone] Encounter Details Date Type Department Care Team (Latest Contact Info) Description 10/22/2018 Abstract [facility] CONVERSIONS Dental, Provider, DDS Social History [...] Description 06/21/2024 8:00 AM EDT Office Visit [facility] DENTAL [address] [place], [place] [phone] María Pace 91 [place], [place] [phone] documented as of this encounter Visit Diagnoses Not on filedocumented in this encounter Care Teams Senior Manager Creative Services Relationship Specialty Start Date End Date Name, MD Surinder [address] [place] [address] PCP - General Family Medicine 04/12/15 documented as of this encounter
--- OUTSIDE RECORDS SUMMARY | 2024-04-15 09:46 | XMS_ITS | Encounter Summary ---
Author Organization [employer] Address [address] [facility] [address] 7t [place] [address] Care Team Providers Care Packer Denture Name Role Phone Name, Surinder MCDANIEL Primary Care Provider [phone] Reason for Visit * Reason Onset Date Comments rs appt 06/18/2023 Encounter Details Date Type Department Care Team ([facility] st Contact Info) Description 06/18/2023 Telephone [facility] ADULT DENTAL [address] [place] [address] Sharee Gallegos BDS rs appt Social History Tobacco Use Types Packs/Day Years Used Date Smoking Tobacco: Never Passive Smoke Exposure: Never Smokeless Tobacco: Never Alcohol Use Standard Drinks/Week Comments Never 0 (1 standard drink = 0.6 oz pur e alcohol) Depression Answer Date Recorded Patient Health Questionnaire-9 Score 3 05/30/2022 Housing Stability Answer Date Recorded What is your housing situation today? I have dave velasquez 11/29/[address] you li ve. Do you have problems with any of the following? None of the above 11/29/2022 Food Insecurity Answer Date Recorded Within the past 12 months, y ou worried that your food would run out before you got money to buy more: Never True 11/29/2022 Within the past 12 months,th e food you bought just didn't last and you didn't have enough money to get more: Never True Transportation Answer Date Recorded In the past 12 months, has l ack of transportation kept you from medical appts, meetings, work or from getting things needed for daily living? No 11/29/2022 Utilities Answer Date Recorded In the past 12 months, has t he electric, gas, oil or water [employer] threatened to shut off services in your home? No 11/29/2022 Depression Answer Date Recorded Patient Health Questionnaire-2 Score 2 05/30/2022 Comments Unknown Sex and Gender Information Value Date Recorded Sex Assigned at Female 12/10/2021 10:14 AM EDT Legal Sex Female 10:14 AM EDT Gender Identity Female 12/10/2021 10:14 AM EDT Sexual Orientation Straight 12/10/2021 10 :14 AM EDT documented as of this encounter Miscellaneous Notes * Telephone Encounter - Sidra Rivera - 06/18/2023 10:11 AM EDT Daughter called in because she is unable to bring patient in tomorrow for her appt due to working all day and needs a new date. She would like to come in as soon as possible. As she is concerned for one of the cavities. Patient would come in but her transportation unable to tomorrow DR documented in this encounter Plan of Treatment Upcoming Encounters Date Type Department Care Team (Late st Contact Info) Description 06/21/2024 8:00 AM EDT Office Visit [facility] DENTAL 91 [place], [place] [phone] María Pace 91 [place], [place] [phone] documented as of this encounter Visit Diagnoses Not on filedocumented in this encounter Additional Health Concerns Assessment Noted Time PHQ-9 Depression Total Score: 3 05/31/19 23 9:20 AM EDT documented as of this encounter Care Teams Packer Denture Relationship Specialty Start Date End Date Name, MD Surinder [address] [place] [address] PCP - General Family Medicine 04/12/15 documented as of this encounter
--- OUTSIDE RECORDS SUMMARY | 2024-04-15 09:46 | XMS_ITS | Encounter Summary ---
Author Organization [employer] Address [address] [place] [address] 7 [place] [address] Care Team Providers Care Public Health Aides Teacher Name Role Phone Name, Surinder MCDANIEL Primary Care Provider [phone] Encounter Details Date Type Department Care Team (Late st Contact Info) Description 07/24/2022 Abstract [facility] MEDICINE [address] [place], [place] [phone] Name, MD Surinder [address] [place] [address] Social History Tobacco Use Types Packs/Day Years Used Date Smoking Tobacco: Never Passive Smoke Exposure: Never Smokeless Tobacco: Never Alcohol Use Standard Drinks/Week Comments Never 0 (1 standard drink = 0.6 oz pur e alcohol) Depression Answer Date Recorded Patient Health Questionnaire-9 Score 3 05/30/2022 Depression Answer Date Recorded Patient Health Questionnaire-2 [...] Description 06/21/2024 8:00 AM EDT Office Visit [facility] DENTAL [address] [place] [address] María Pace 91 [place] [address] documented as of this encounter Visit Diagnoses Not on filedocumented in this encounter Additional Health Concerns Assessment Noted Time PHQ-9 Depression Total Score: 3 05/31/19 23 9:20 AM EDT documented as of this encounter Care Teams Public Health Aides Teacher Relationship Specialty Start Date End Date Name, MD Surinder [address] [place] [address] PCP - General Family Medicine 04/12/15 documented as of this encounter
--- OUTSIDE RECORDS SUMMARY | 2024-04-15 09:46 | XMS_ITS | Encounter Summary ---
Author Organization [employer] Address [address] [facility] [address] [facility] [address] 7t [place] [address] Care Team Providers Care Flask Handler Name Role Phone Name, Surinder MCDANIEL Primary Care Provider [phone] Encounter Details Date Type Department Care Team (Late st Contact Info) Description 12/03/2022 Orders Only [facility] CHC MED & PEDS [address] [place], [place] [phone] Nadja Vanegas LPN Social History Tobacco Use Types Packs/Day Years Used Date Smoking Tobacco: Never Passive Smoke Exposure: Never Smokeless Tobacco: Never Alcohol Use Standard Drinks/Week Comments Never 0 (1 standard drink = 0.6 oz pur e alcohol) Depression Answer Date Recorded Patient Health Questionnaire-9 Score 3 05/30/2022 Housing Stability Answer Date Recorded What is your housing situation today? I have davefrancisco velasquez 11/29/[address] you [...] 8:00 AM EDT Office Visit [facility] DENTAL 91 [place], [place] [phone] María Pace 91 [place], [place] [phone] documented as of this encounter Visit Diagnoses Not on filedocumented in this encounter Additional Health Concerns Assessment Noted Time PHQ-9 Depression Total Score: 3 05/31/19 23 9:20 AM EDT documented as of this encounter Care Teams Flask Handler Relationship Specialty Start Date End Date Name, MD Surinder [address] [place] [address] PCP - General Family Medicine 04/12/15 documented as of this encounter
--- OUTSIDE RECORDS SUMMARY | 2024-04-15 09:46 | XMS_ITS | Encounter Summary ---
Author Organization [employer] Address [address] [facility] 7t [place] [address] Care Team Providers Care Metal Reclamation Kettle Tender Name Role Phone Name, Surinder MCDANIEL Primary Care Provider [phone] Reason for Visit * Reason Comments Med Refill Encounter Details Date Type Department Care Team ([facility] Contact Info) Description 03/27/2024 Refill [facility] MEDICINE [address] [place], [place] [phone] Name, MD Surinder [address] [place] [address] Essential hypertension Social History Tobacco Use Types Packs/Day Years [...] Description 06/21/2024 8:00 AM EDT Office Visit [facility] DENTAL 91 [place], [place] [phone] María Pace [address] [place], [place] [phone] documented as of this encounter Visit Diagnoses Diagnosis Essential hypertension Unspecified essential hypertension documented in this encounter Additional Health Concerns Assessment Noted Time PHQ-9 Depression Total Score: 0 07/28/19 24 11:01 AM EDT documented as of this encounter Care Teams Metal Reclamation Kettle Tender Relationship Specialty Start Date End Date Name, MD Surinder [address] [place] [address] PCP - General Family Medicine 04/12/15 documented as of this encounter
--- OUTSIDE RECORDS SUMMARY | 2024-04-15 09:46 | XMS_ITS | Encounter Summary ---
Author Organization [employer] Address [address] [facility] 7t [place] [address] Care Team Providers Care Graphic Design Manager Name Role Phone Name, Surinder MCDANIEL Primary Care Provider [phone] Reason for Visit * Reason Comments Med Refill Encounter Details Date Type Department Care Team ([facility] Contact Info) Description 12/11/2023 Refill [facility] MEDICINE [address] [place], [place] [phone] Name, MD Surinder [address] [place] [address] Social History Tobacco Use Types Packs/Day Years [...] Description 06/21/2024 8:00 AM EDT Office Visit [facility] DENTAL 91 [place], [place] [phone] María Pace 91 [place], [place] [phone] documented as of this encounter Visit Diagnoses Not on filedocumented in this encounter Additional Health Concerns Assessment Noted Time PHQ-9 Depression Total Score: 0 07/28/19 24 11:01 AM EDT documented as of this encounter Care Teams Graphic Design Manager Relationship Specialty Start Date End Date Name, MD Surinder [address] [place] [address] PCP - General Family Medicine 04/12/15 documented as of this encounter
--- OUTSIDE RECORDS SUMMARY | 2024-04-15 09:46 | XMS_ITS | Encounter Summary ---
Author Organization [employer] Address [address] [facility] 7t [place] [address] Care Team Providers Care Boring Machine Set Up Operator Name Role Phone Name, Surinder MCDANIEL Primary Care Provider [phone] Reason for Visit * Reason Comments Med Refill Encounter Details Date Type Department Care Team ([facility] Contact Info) Description 12/12/2023 Refill [facility] MEDICINE 230 [place], [place] [phone] Name, MD Surinder [address] [place] [address] Social History Tobacco Use Types Packs/Day Years [...] Description 06/21/2024 8:00 AM EDT Office Visit [facility] DENTAL 91 [place], [place] [phone] María Pace 91 [place], [place] [phone] documented as of this encounter Visit Diagnoses Not on filedocumented in this encounter Additional Health Concerns Assessment Noted Time PHQ-9 Depression Total Score: 0 07/28/19 24 11:01 AM EDT documented as of this encounter Care Teams Boring Machine Set Up Operator Relationship Specialty Start Date End Date Name, MD Surinder [address] [place] [address] PCP - General Family Medicine 04/12/15 documented as of this encounter
--- OUTSIDE RECORDS SUMMARY | 2024-04-15 09:46 | XMS_ITS | Encounter Summary ---
Author Organization [employer] Address [address] [facility] [address] 7t [place] [address] Care Team Providers Care Vest Baster Name Role Phone Name, Surinder MCDANIEL Primary Care Provider [phone] Reason for Visit * Reason Onset Date Comments mouthwash script 05/30/2023 Encounter Details Date Type Department Care Team ([facility] st Contact Info) Description 05/30/2023 Telephone [facility] D[facility] [address] [place] [address] Sharee Gallegos, BDS mouthwash script Social History Tobacco Use Types Packs/Day Years [...] encounter Miscellaneous Notes * Telephone Encounter - Fransisco Cadet DMD - 05/30/2023 10:07 AM EDT Please follow up with Dr. Alvarez * Telephone Encounter - Sidra Rivera - 05/30/2023 10:03 AM EDT Patient was seen yesterday and script for antibiotic and mouthwash was to be sent to pharmacy but pharmacy states they never received the script or mouthwash. Can it be sent DR documented in this encounter Plan of Treatment Upcoming Encounters Date Type Department Care Team (Late st Contact Info) Description 06/21/2024 8:00 AM EDT Office Visit [facility] DENTAL 91 [place] [address] María Pace 91 [place], [place] [phone] documented as of this encounter Visit Diagnoses Not on filedocumented in this encounter Additional Health Concerns Assessment Noted Time PHQ-9 Depression Total Score: 3 05/31/19 23 9:20 AM EDT documented as of this encounter Care Teams Vest Baster Relationship Specialty Start Date End Date Name, MD Surinder [address] [place] [address] PCP - General Family Medicine 04/12/15 documented as of this encounter
--- OUTSIDE RECORDS SUMMARY | 2024-04-15 09:46 | XMS_ITS | Encounter Summary ---
Author Organization [employer] Address [address] [place] [address] 7 [place] [address] Care Team Providers Care Research And Evaluation Analyst Name Role Phone Name, Surinder MCDANIEL Primary Care Provider Encounter Details Date Type Department Care Team (Late st Contact Info) Description 03/21/2022 Abstract [facility] MEDICINE 230 [place], [place] [phone] Name, MD Surinder [address] [place] [address] Social History Tobacco Use Types Packs/Day Years [...] Encounters Date Type Department Care Team (Late Contact Info) Description 06/21/2024 8:00 AM EDT Office Visit [facility] DENTAL 91 [place], [place] [phone] María Pace 91 [place], [place] [phone] documented as of this encounter Procedures Procedure Name Priority Date/Time Associated Diagnosis Comments MAMMOGRAPHY Routine 01/30/2022 documented in this encounter Results * Mammography (01/30/2022) Mammogram performed Anatomical Region Laterality Modality Other us Historical Provider HEALTH MAINTENANCE Final Result documented in this encounter Visit Diagnoses Not on filedocumented in this encounter Care Teams Research And Evaluation Analyst Relationship Specialty Start Date End Date Name, MD Surinder [address] [place] [address] PCP - General Family Medicine 04/12/15 documented as of this encounter
--- OUTSIDE RECORDS SUMMARY | 2024-04-15 09:46 | XMS_ITS | Encounter Summary ---
Author Organization [employer] Address [address] [facility] 7t [place] [address] Care Team Providers Care Refractory Mixer Name Role Phone Name, Surinder MCDANIEL Primary Care Provider [phone] Reason for Visit * Reason Onset Date Comments request 12/23/2022 Encounter Details Date Type Department Care Team ([facility] st Contact Info) Description 12/23/2022 Telephone [facility] MEDICINE 230 [place] [address] Name, MD Surinder 230 [place] [address] request Social History Tobacco Use Types Packs/Day Years [...] encounter Miscellaneous Notes * Telephone Encounter - Shivani Zamora - 12/23/2022 12:26 PM EST Tc from daughter requesting to switch 12/26/2022 f/u apt to televisit. documented in this encounter Plan of Treatment Upcoming Encounters Date Type Department Care Team (Late st Contact Info) Description 06/21/2024 8:00 AM EDT Office Visit [facility] DENTAL 91 [place] [address] María Pace 91 [place], [place] [phone] documented as of this encounter Visit Diagnoses Not on filedocumented in this encounter Additional Health Concerns Assessment Noted Time PHQ-9 Depression Total Score: 3 05/31/19 23 9:20 AM EDT documented as of this encounter Care Teams Refractory Mixer Relationship Specialty Start Date End Date Name, MD Surinder [address] [place] [address] PCP - General Family Medicine 04/12/15 documented as of this encounter
--- OUTSIDE RECORDS SUMMARY | 2024-04-15 09:46 | XMS_ITS | Encounter Summary ---
Author Organization [employer] Address [address] [place] [address] 7t [place] [address] Care Team Providers Care Unit Secy Name Role Phone Name, Surinder MCDANIEL Primary Care Provider [phone] Reason for Visit * Reason Onset Date Comments cx 8am visit needs new date and time 01/14/2024 Encounter Details Date Type Department Care Team (Late st Contact Info) Description 01/14/2024 Telephone [facility] DENTAL 91 [place], [place] [phone] Teodora Pabon, BDS [address] [place], [place] [phone] cx 8am visit needs new date and time Social History Tobacco Use Types Packs/Day Years [...] * Telephone Encounter - Sidra Rivera - 01/14/2024 8:05 AM EST Rama called in to cancel 8am visit. No reason given. Needs new date and time DR documented in this encounter Plan of Treatment Upcoming Encounters Date Type Department Care Team ([facility] st Contact Info) Description 06/21/2024 8:00 AM EDT Office Visit [facility] DENTAL [address] [place] [phone] María Pace 91 [place], [place] [phone] documented as of this encounter Visit Diagnoses Not on filedocumented in this encounter Additional Health Concerns Assessment Noted Time PHQ-9 Depression Total Score: 0 07/28/19 24 11:01 AM EDT documented as of this encounter Care Teams Unit Secy Relationship Specialty Start Date End Date Name, MD Surinder [address] [place] [address] PCP - General Family Medicine 04/12/15 documented as of this encounter
--- OUTSIDE RECORDS SUMMARY | 2024-04-15 09:46 | XMS_ITS | Encounter Summary ---
Author Organization [employer] Address [address] [place] [address] 7t [place] [address] Care Team Providers Care Occupational Therapy Aide Name Role Phone Name, Surinder MCDANIEL Primary Care Provider [phone] Encounter Details Date Type Department Care Team ([facility] Contact Info) Description 10/03/2022 Orders Only [facility] CHC MED & PEDS [address] [place], [place] [phone] Nadja Vanegas LPN Social History Tobacco Use [...] Upcoming Encounters Date Type Department Care Team ([facility] Contact Info) Description 06/21/2024 8:00 AM EDT Office Visit [facility] DENTAL 91 [place], [place] [phone] María Pace 91 [place], [place] [phone] documented as of this encounter Visit Diagnoses Not on filedocumented in this encounter Additional Health Concerns Assessment Noted Time PHQ-9 Depression Total Score: 3 05/31/19 23 9:20 AM EDT documented as of this encounter Care Teams Occupational Therapy Aide Relationship Specialty Start Date End Date Name, MD Surinder [address] [place] [address] PCP - General Family Medicine 04/12/15 documented as of this encounter
== END 2024-04-15 09:20 | disposition home or self-care (01) ==
PROVIDERS: PCP Internal Medicine Geriatric Medicine; Visit Provider Surgery
DX: Z85.3 Personal history of malignant neoplasm of breast (principal)
CPT/HCPCS: 99213; G2211

== ENCOUNTER → 2024-04-15 08:55 | Outpatient (BNVA) | payer OTHER, SELFPAY | PROVIDERS: PCP Internal Medicine Geriatric Medicine; Visit Provider Surgery | DX: Z85.3 Personal history of malignant neoplasm of breast (principal); Z90.11 Acquired absence of right breast and nipple | CPT/HCPCS: 99212 ==

== ENCOUNTER → 2024-07-26 08:22 | Outpatient (BNVA) | payer OTHER, SELFPAY | PROVIDERS: PCP Internal Medicine Geriatric Medicine; Visit Provider Internal Medicine ==

== ENCOUNTER 2024-10-28 11:23 | Outpatient (REF) | payer OTHER, SELFPAY ==
[2024-10-28 13:46] LABS: Alanine Aminotransferase 25 U/L (0-31); Albumin Level 4.1 g/dL (3.5-5.0); Alkaline Phosphatase 77 U/L (39-117); Anion Gap 11 (12-20); Aspartate Amino Transferase 29 U/L (5-31); Blood Urea Nitrogen 19 mg/dL (9-16); Calcium 8.9 mg/dL (8.4-10.2); Carbon Dioxide 29 mmol/L (22-29); Chloride 108 mmol/L (96-108); Cholesterol 174 mg/dL (<200); Estimated Glomerular Filt Rate 50; HDL Cholesterol 67 mg/dL (>40); Potassium 4.1 mmol/L (3.3-5.1); Sodium 144 mmol/L (135-145); Total Protein 7.2 g/dL (6.5-8.0); Triglycerides 180 mg/dL (<150)
[2024-10-28 13:56] LABS: Vitamin B12 934 pg/mL (200-900)
[2024-10-28 14:31] LABS: Microalbum/Creatinine Ratio Ur 4.4 ug/mg cr (<30)
== END 2024-10-28 11:24 | disposition home or self-care (01) ==
LOC: HO.HHCL 11:23
PROVIDERS: PCP Internal Medicine Geriatric Medicine; Visit Provider Internal Medicine Geriatric Medicine
DX: E03.9 Hypothyroidism, unspecified (principal); E53.8 Deficiency of other specified B group vitamins; I10 Essential (primary) hypertension
CPT/HCPCS: 36415; 80053; 80061; 82043; 82570; 82607; 84443

== ENCOUNTER 2024-12-10 08:10 | Outpatient (REF) | payer OTHER, SELFPAY ==
--- NOTE | ~2024-12-10 | FL_ITS ---
EXAMINATION: XR BARIUM SWALLOW CLINICAL INFORMATION: Dysphagia COMPARISON: None available. TECHNIQUE: Seen upright barium swallow with thick barium and barium coated saltine crackers and thin barium in prone lying position was performed. FINDINGS: Following oral administration of thick barium in upright view there is normal propagation bolus from the oral cavity through the pharynx, esophagus into stomach without obstruction or narrowing. No extrinsic compression seen. Incidental finding of spinal electrodes in the mid thoracic spine are noted. On oral administration of barium coated saltine crackers there is normal propagation bolus from the oral cavity through the pharynx, esophagus into stomach without obstruction, narrowing or stricture. On placing patient prone lying and oral administration of thin barium there is good distention of esophagus without any obstruction, narrowing or stricture. No intraluminal filling defects or extrinsic compression seen. Transient small sliding hiatal hernia is noted. No reflux seen. FLUOROSCOPY TIME: 3 minutes and 1 second. DOSE AREA PRODUCT: 2197 uGy-m2 (microgray-meter squared) FL/FL barium swallow IMPRESSION: Unremarkable barium swallow. Especially no esophageal obstruction seen. Electronically signed by: Williams King MD 12/10/2024 01:14 PM EDT
--- OUTSIDE RECORDS SUMMARY | 2024-12-10 08:17 | XMS_ITS | Encounter Summary ---
Author Organization [employer] Address [address] [place] [address] 7 [place] [address] Care Team Providers Care Technical Agronomist Name Role Phone Name, Surinder MCDANIEL Primary Care Provider [phone] Encounter Details Date Type Department Care Team (Latest Contact Info) Description 03/01/2021 Abstract [facility] CONVERSIONS Dental, Provider, DDS Social History [...] Care Team (Late st Contact Info) Description 12/27/2024 8:00 AM EST Office Visit [facility] ADULT DENTAL [address] [place] [address] María Pace [address] [place] [address] documented as of this encounter Visit Diagnoses Not on filedocumented in this encounter Care Teams Technical Agronomist Relationship Specialty Start Date End Date Name, MD Surinder [address] [place] [address] PCP - General Family Medicine 04/12/15 documented as of this encounter
--- OUTSIDE RECORDS SUMMARY | 2024-12-10 08:17 | XMS_ITS | Encounter Summary ---
Author Organization [employer] Address [address] [facility] [address] 7t [place] [address] Care Team Providers Care Childcare Aide Name Role Phone Name, Surinder MCDANIEL Primary Care Provider [phone] Reason for Visit * Reason Onset Date Comments rs appt 06/18/2023 Encounter Details Date Type Department Care Team (Late st Contact Info) Description 06/18/2023 Telephone [facility] ADULT DENTAL [address] [place] [address] Sharee Gallegos BDS rs appt Social History [...] the past 12 months, has t he [employer], gas, oil or water company threatened to [...] Description 12/27/2024 8:00 AM EST Office Visit [facility] ADULT DENTAL [address] [place] [address] María Pace [address] [place], [place] [phone] documented as of this encounter Visit Diagnoses Not on filedocumented in this encounter Additional Health Concerns Assessment Noted Time PHQ-9 Depression Total Score: 3 05/31/19 23 9:20 AM EDT documented as of this encounter Care Teams Childcare Aide Relationship Specialty Start Date End Date Name, MD Surinder 230 [place] [address] PCP - General Family Medicine 04/12/15 documented as of this encounter
--- OUTSIDE RECORDS SUMMARY | 2024-12-10 08:17 | XMS_ITS | Encounter Summary ---
Author Organization [employer] Address [address] [facility] 7t [place] [address] Care Team Providers Care Facing Cutting Machine Operator Name Role Phone Name, Surinder MCDANIEL Primary Care Provider [phone] Encounter Details Date Type Department Care Team (Latest Contact Info) Description 11/23/2024 Results Follow-Up [facility] MEDICINE [address] [place] [phone] Name, MD Surinder [address] [place] [address] Comprehensive Metabolic Panel, Lipid Panel, Standard, Vitamin B12, TSH W/Reflex to FT4 Social History Tobacco Use Types Packs/Day Years [...] Answer Date Recorded Patient Health Questionnaire-9 Score 12 10/29/2024 Patient Health Questionnaire-9 Score 12 10/29/2024 Last PHQ-9: Questionnaire Data Not on file 0 10/29/2024 Housing Stability Answer Date Recorded What is your housing situation today? I have dave velasquez 10/28/[address] you li ve. Do you have problems with any of the following? None of the above 10/28/2024 Food Insecurity Answer Date Recorded Within the past 12 months, y ou worried that your food would run out before you got money to buy more: Never True 10/28/2024 Within the past 12 months,th e food you bought just didn't last and you didn't have enough money to get more: Never True Transportation Answer Date Recorded In the past 12 months, has l ack of transportation kept you from medical appts, meetings, work or from getting things needed for daily living? No 10/28/2024 Utilities Answer Date Recorded In the past 12 months, has t he electric, gas, oil or water company threatened to shut off services in your home? No 10/28/2024 Depression Answer Date Recorded Patient Health Questionnaire-2 Score 2 10/29/2024 Internet Access Answer Date Recorded Internet Access Q1 Yes 10/28/2024 Internet Access Q2 Not on file 10/28/2024 Comments Unknown Sex and Gender Information Value [...] Description 12/27/2024 8:00 AM EST Office Visit [facility] ADULT DENTAL 230 [place] [address] María Pace [address] [place] [address] documented as of this encounter Visit Diagnoses Not on filedocumented in this encounter Additional Health Concerns Assessment Noted Time PHQ-9 Depression Total Score: 12 025 1:48 PM EDT documented as of this encounter Care Teams Facing Cutting Machine Operator Relationship Specialty Start Date End Date Name, MD Surinder [address] [place] [address] PCP - General Family Medicine 04/12/15 documented as of this encounter
--- OUTSIDE RECORDS SUMMARY | 2024-12-10 08:17 | XMS_ITS | Encounter Summary ---
Author Organization [employer] [facility] Address [address] [place] [address] 7t [place] [address] Care Team Providers Care Room Attendants Name Role Phone Name, Surinder MCDANIEL Primary Care Provider [phone] Encounter Details Date Type Department Care Team (Late st Contact Info) Description 03/21/2022 Abstract [facility] MEDICINE [address] [place], [place] [phone] Name, MD Surinder [address] [place] [address] Social History Tobacco Use Types Packs/Day Years [...] Description 12/27/2024 8:00 AM EST Office Visit [facility] ADULT DENTAL [address] [place], [place] [phone] María Pace [address] [place] [address] [phone] documented as of this encounter Procedures Procedure Name Priority Date/Time Associated Diagnosis Comments MAMMOGRAPHY Routine 01/30/2022 documented in this encounter Results * Mammography (01/30/2022) Mammogram performed Anatomical Region Laterality Modality Other us Historical Provider HEALTH MAINTENANCE Final Result documented in this encounter Visit Diagnoses Not on filedocumented in this encounter Care Teams Room Attendants Relationship Specialty Start Date End Date Name, MD Surinder [address] [place] [address] PCP - General Family Medicine 04/12/15 documented as of this encounter
--- OUTSIDE RECORDS SUMMARY | 2024-12-10 08:17 | XMS_ITS | Encounter Summary ---
Author Organization [facility] Address [address] [place] [address] 7 [place] [address] Care Team Providers Care Brake Repair Supervisor Name Role Phone Name, Suirnder MCDANIEL Primary Care Provider [phone] Encounter Details Date Type Department Care Team (Late st Contact Info) Description 02/26/2022 Orders Only [facility] MEDICINE 230 [place] [address] Bel Hernandez LPN Social History Tobacco Use [...] Description 12/27/2024 8:00 AM EST Office Visit [facility] ADULT DENTAL [address] [place] [address] María Pace [address] [place] [address] documented as of this encounter Visit Diagnoses Not on filedocumented in this encounter Care Teams Brake Repair Supervisor Relationship Specialty Start Date End Date Name, MD Surinder [address] [place] [address] PCP - General Family Medicine 04/12/15 documented as of this encounter
--- OUTSIDE RECORDS SUMMARY | 2024-12-10 08:17 | XMS_ITS | Encounter Summary ---
Author Organization [employer] Address [address] [facility] 7t [place] [address] Care Team Providers Care Recycler Forklift Driver Truck Driver Name Role Phone Name, Surinder MCDANIEL Primary Care Provider [phone] Reason for Visit * Reason Onset Date Comments mouthwash script 05/30/2023 Encounter Details Date Type Department Care Team ([facility] st Contact Info) Description 05/30/2023 Telephone [facility] ADULT DENTAL 230 [place] [address] Sharee Gallegos, BDS mouthwash script Social History [...] Description 12/27/2024 8:00 AM EST Office Visit [facility] ADULT DENTAL 230 [place] [address] María Pace [address] [place] [address] documented as of this encounter Visit Diagnoses Not on filedocumented in this encounter Additional Health Concerns Assessment Noted Time PHQ-9 Depression Total Score: 3 05/31/19 23 9:20 AM EDT documented as of this encounter Care Teams Recycler Forklift Driver Truck Driver Relationship Specialty Start Date End Date Name, MD Surinder 230 [place] [address] PCP - General Family Medicine 04/12/15 documented as of this encounter
--- OUTSIDE RECORDS SUMMARY | 2024-12-10 08:17 | XMS_ITS | Encounter Summary ---
Author Organization [employer] Address [address] [place] [address] 7 [place] [address] Care Team Providers Care Inspector Name Role Phone Name, Surinder MCDANIEL Primary Care Provider [phone] Encounter Details Date Type Department Care Team (Latest Contact Info) Description 10/22/2018 Abstract [facility] CONVERSIONS Dental, Provider, DDS Social History [...] Description 12/27/2024 8:00 AM EST Office Visit [facility] ADULT DENTAL 230 [place] [address] María Pace [address] [place] [phone] documented as of this encounter Visit Diagnoses Not on filedocumented in this encounter Care Teams Inspector Relationship Specialty Start Date End Date Name, MD Surinder [address] [place] [address] PCP - General Family Medicine 04/12/15 documented as of this encounter
--- OUTSIDE RECORDS SUMMARY | 2024-12-10 08:18 | XMS_ITS | Encounter Summary ---
Author Organization [employer] Address [address] [place] [address] 7t [place] [address] Care Team Providers Care Inspector Experimental Assembly Name Role Phone Name, Surinder MCDANIEL Primary Care Provider [phone] Reason for Visit * Reason Onset Date Comments cx 8am visit needs new date and time 01/14/2024 Encounter Details Date Type Department Care Team (Late st Contact Info) Description 01/14/2024 Telephone [facility] D[facility] [address] [place], [place] [phone] Teodora Pabon, BDS [address] [place], [place] [phone] cx 8am visit needs new date and [...] Description 12/27/2024 8:00 AM EST Office Visit [facility] ADULT DENTAL 230 [place] [address] María Pace [address] [place] [address] [phone] documented as of this encounter Visit Diagnoses Not on filedocumented in this encounter Additional Health Concerns Assessment Noted Time PHQ-9 Depression Total Score: 0 07/28/19 24 11:01 AM EDT documented as of this encounter Care Teams Inspector Experimental Assembly Relationship Specialty Start Date End Date Name, MD Surinder 230 [place] [address] PCP - General Family Medicine 04/12/15 documented as of this encounter
--- OUTSIDE RECORDS SUMMARY | 2024-12-10 08:18 | XMS_ITS | Encounter Summary ---
Author Organization [employer] Address [address] [facility] 7t [place] [address] Care Team Providers Care Companion Caregiver Name Role Phone Name, Surinder MCDANIEL Primary Care Provider [phone] Encounter Details Date Type Department Care Team (Late Contact Info) Description 05/06/2022 Orders Only [facility] CHC MED & PEDS [address] [place], [place] [phone] Nadja Vanegas LPN Social History Tobacco Use [...] Department Care Team (Late Contact Info) Description 12/27/2024 8:00 AM EST Office Visit [facility] ADULT DENTAL 230 [place] [address] María Pace [address] [place], [place] [phone] documented as of this encounter Visit Diagnoses Not on filedocumented in this encounter Care Teams Companion Caregiver Relationship Specialty Start Date End Date Name, MD Surinder 230 [place] [address] PCP - General Family Medicine 04/12/15 documented as of this encounter
--- OUTSIDE RECORDS SUMMARY | 2024-12-10 08:18 | XMS_ITS | Encounter Summary ---
Author Organization [employer] Address [address] [facility] [address] 7t [place] [address] Care Team Providers Care Tents Assembler Name Role Phone Name, Surinder MCDANIEL Primary Care Provider [phone] Encounter Details Date Type Department Care Team (Late st Contact Info) Description 12/18/[address] [facility] ADULT DENTAL [address] [place] [address] Teodora Pabon, PANCHO [address] [place], [place] [phone] Social History Tobacco Use Types Packs/Day Years [...] 8:00 AM EST Office Visit [facility] ADULT DENTAL [address] [place] [address] María Pace [address] [place] [address] documented as of this encounter Visit Diagnoses Not on filedocumented in this encounter Additional Health Concerns Assessment Noted Time PHQ-9 Depression Total Score: 0 07/28/19 24 11:01 AM EDT documented as of this encounter Care Teams Tents Assembler Relationship Specialty Start Date End Date Name, MD Surinder 230 [place] [address] PCP - General Family Medicine 04/12/15 documented as of this encounter
--- OUTSIDE RECORDS SUMMARY | 2024-12-10 08:18 | XMS_ITS | Encounter Summary ---
Author Organization [employer] Address [address] [facility] 7t [place] [address] Care Team Providers Care Roundhouse Supervisor Name Role Phone Name, Surinder MCDANIEL Primary Care Provider [phone] Reason for Visit * Reason Comments Med Refill Encounter Details Date Type Department Care Team ([facility] Contact Info) Description 12/12/2023 Refill [facility] MEDICINE 230 [place], [place] [phone] Name, MD Surinder [address] [place] [address] Social History Tobacco Use Types Packs/Day Years [...] Description 12/27/2024 8:00 AM EST Office Visit [facility] ADULT DENTAL [address] [place] [address] María Pace [address] [place] [address] [phone] documented as of this encounter Visit Diagnoses Not on filedocumented in this encounter Additional Health Concerns Assessment Noted Time PHQ-9 Depression Total Score: 0 07/28/19 24 11:01 AM EDT documented as of this encounter Care Teams Roundhouse Supervisor Relationship Specialty Start Date End Date Name, MD Surinder [address] [place] [address] PCP - General Family Medicine 04/12/15 documented as of this encounter
--- OUTSIDE RECORDS SUMMARY | 2024-12-10 08:18 | XMS_ITS | Encounter Summary ---
Author Organization [employer] Address [address] [facility] [address] 7t [place] [address] Care Team Providers Care Engineering Tech Name Role Phone Name, Surinder MCDANIEL Primary Care Provider [phone] Encounter Details Date Type Department Care Team (Late st Contact Info) Description 12/03/2022 Orders Only [facility] CHC MED & PEDS [address] [place], [place] [phone] Nadja Vanegas LPN Social History Tobacco Use [...] Description 12/27/2024 8:00 AM EST Office Visit [facility] ADULT DENTAL 230 [place] [address] María Pace [address] [place] [address] [phone] documented as of this encounter Visit Diagnoses Not on filedocumented in this encounter Additional Health Concerns Assessment Noted Time PHQ-9 Depression Total Score: 3 05/31/19 23 9:20 AM EDT documented as of this encounter Care Teams Engineering Tech Relationship Specialty Start Date End Date Name, MD Surinder [address] [place] [address] PCP - General Family Medicine 04/12/15 documented as of this encounter
--- OUTSIDE RECORDS SUMMARY | 2024-12-10 08:18 | XMS_ITS | Encounter Summary ---
Author Organization [employer] Address [address] [facility] 7t [place] [address] Care Team Providers Care Theater Company Producer Name Role Phone Name, Surinder MCDANIEL Primary Care Provider [phone] Reason for Visit * Reason Onset Date Comments request 12/23/2022 Encounter Details Date Type Department Care Team ([facility] Contact Info) Description 12/23/2022 Telephone [facility] MEDICINE [address] [place] [address] Name, MD Surinder [address] [place] [phone] request Social History Tobacco Use Types Packs/Day [...] Description 12/27/2024 8:00 AM EST Office Visit [facility] ADULT DENTAL [address] [place] [address] María Pace [address] [place], [place] [phone] documented as of this encounter Visit Diagnoses Not on filedocumented in this encounter Additional Health Concerns Assessment Noted Time PHQ-9 Depression Total Score: 3 05/31/19 23 9:20 AM EDT documented as of this encounter Care Teams Theater Company Producer Relationship Specialty Start Date End Date Name, MD Surinder [address] [place] [address] PCP - General Family Medicine 04/12/15 documented as of this encounter
--- OUTSIDE RECORDS SUMMARY | 2024-12-10 08:18 | XMS_ITS | Encounter Summary ---
Author Organization [employer] [facility] Address [address] [place] [address] 7t [place] [address] Care Team Providers Care Steam Conditioner Operator Name Role Phone Name, Surinder MCDANIEL Primary Care Provider [phone] Encounter Details Date Type Department Care Team (Late st Contact Info) Description 07/24/[address] [facility] MEDICINE [address] [place] [address] Name, MD Surinder [address] [place] [address] Social History Tobacco Use Types Packs/Day Years [...] Description 12/27/2024 8:00 AM EST Office Visit [facility] ADULT DENTAL [address] [place], [place] [phone] María Pace [address] [place] [address] [phone] documented as of this encounter Visit Diagnoses Not on filedocumented in this encounter Additional Health Concerns Assessment Noted Time PHQ-9 Depression Total Score: 3 05/31/19 23 9:20 AM EDT documented as of this encounter Care Teams Steam Conditioner Operator Relationship Specialty Start Date End Date Name, MD Surinder [address] [place] [address] PCP - General Family Medicine 04/12/15 documented as of this encounter
--- OUTSIDE RECORDS SUMMARY | 2024-12-10 08:18 | XMS_ITS | Encounter Summary ---
Author Organization [employer] Address [address] [facility] 7t [place] [address] Care Team Providers Care Tripe Washer Name Role Phone Name, Surinder MCDANIEL Primary Care Provider [phone] Reason for Visit * Reason Comments Med Refill Encounter Details Date Type Department Care Team ([facility] Contact Info) Description 12/11/2023 Refill [facility] MEDICINE 230 [place], [place] [phone] Name, MD Surinder [address] [place] [address] Social History Tobacco Use Types Packs/Day Years [...] Description 12/27/2024 8:00 AM EST Office Visit [facility] ADULT DENTAL 230 [place] [address] María Pace [address] [place] [address] [phone] documented as of this encounter Visit Diagnoses Not on filedocumented in this encounter Additional Health Concerns Assessment Noted Time PHQ-9 Depression Total Score: 0 07/28/19 24 11:01 AM EDT documented as of this encounter Care Teams Tripe Washer Relationship Specialty Start Date End Date Name, MD Surinder [address] [place] [address] PCP - General Family Medicine 04/12/15 documented as of this encounter
--- OUTSIDE RECORDS SUMMARY | 2024-12-10 08:18 | XMS_ITS | Clinical Summary ---
Author Organization [employer] Address [address] [facility] [address] [place] [address] Care Team Providers Care Ground Operations Crew Member Name Role Phone Name, Surinder MCDANIEL Primary Care Provider [phone] Allergies Active Allergy Reactions Criticality Noted Date Comments Amoxicillin Diarrhea 10/08/2023 Medications * This document contains information received from the source organization and may not represent a complete record from that organization. tamoxifen (Nolvadex) 20 MG chemo tablet Take [...] EVENING 90 tablet 1 05/01/19 24 Active acetaminophen (Tylenol) 500 MG tablet [...] USE. 30 each 3 12/02/19 24 Active amLODIPine (Norvasc) 10 MG tablet Take 1 tablet (10 mg) by mouth Once per day. 30 tablet 11 02/12/19 25 026 Active nabumetone (Relafen) 500 MG tablet TAKE ONE TABLET BY MOUTH TWICE A DAY FOR 20 DAYS 40 tablet 07/08/19 25 Active traZODone (Desyrel) 150 MG tabletIndication s:Exacerbation of chronic back pain TAKE ONE TABLET BY MOUTH DAILY AT BEDTIME 90 tablet 1 08/04/19 25 Active sertraline (Zoloft) 50 MG tabletIndication s:Essential hypertension TAKE ONE TABLET BY MOUTH EVERY DAY 30 tablet 4 08/24/19 25 Active levothyroxine (Synthroid, Levoxyl) 112 MCG tabletIndication s:Hypothyroidism , unspecified type TAKE ONE TABLET BY MOUTH EVERY DAY 90 tablet 1 10/08/19 25 Active cyanocobalamin (Vitamin B-12) 1000 MCG tablet TAKE ONE TABLET BY MOUTH EVERY DAY 90 tablet 1 10/16/19 25 Active sertraline (Zoloft) 100 MG tabletIndication s:Depression, unspecified depression type Take 1 tablet (100 mg) by mouth Once per day. 30 tablet 11 10/29/19 25 026 Active omeprazole (PriLOSEC) [address] capsule TAKE ONE CAPSULE BY MOUTH EVERY DAY BEFORE A MEAL 90 capsule 3 11/09/19 25 Active gabapentin (Neurontin) 600 MG tabletIndication s:Chronic pain syndrome TAKE ONE TABLET BY MOUTH THREE TIMES A DAY 90 tablet 12/04/19 25 Active gabapentin (Neurontin) 600 MG tabletIndication s:Chronic pain syndrome TAKE ONE TABLET BY MOUTH THREE TIMES A DAY 90 tablet 2 08/24/19 25 025 Discontinued Active Problems Problem Noted Date Diagnosed Date DYLON (generalized anxiety disorder) 10/29/2024 S/P insertion of spinal cord stimulator 10/29/19 25 Bilateral primary osteoarthritis of knee 024 Diverticulosis 05/01/2023 History of breast cancer 05/01/2023 Hyperplastic colon polyp 05/01/2023 Lumbar and sacral arthritis 05/01/2023 Lumbar radiculitis 05/01/2023 GERD (gastroesophageal reflux disease) Knee pain, right 05/01/2023 Cancer of right breast (CMS/HCC) 05/01/2023 Depressive disorder due to separate medical cond ition 02/28/2022 Seasonal allergic reaction 02/28/2022 History of right mastectomy 03/07/2020 Infiltrating ductal carcinoma of breast ([facility]/HCC ) 02/22/2020 Mild intermittent asthma 07/03/2018 Calcaneal spur 04/06/2018 Heel pain 01/27/2018 Disorder of vein 11/24/2017 Erythrocytosis 05/20/2017 Facial wart 02/17/2017 Essential hypertension 02/17/2017 Constipation 10/13/2015 Lumbosacral radiculopathy 10/13/2015 Cobalamin [...] Problem Noted Date Diagnosed Date Resolved Date Abnormal mammogram of right breast 05/01/2023 10/28/2024 Colon cancer screening 05/01/202310/28 Invasive ductal carcinoma of breast (CMS/HCC) 05/01/1910/28/2024 Malignant neoplasm of female breast ([facility]/HCC) 02/28/1910/28/2024 Pneumonia due to infectious organism 07/03/2018 12/25/2022 Knee pain 02/17/2017 10/28/2024 Encounters * This document contains information received from the source organization and may not represent a complete record from that organization. Date Type Department Care Team Description 12/03/2024 Refill [facility] [address] [place] [address] Name, MD Surinder Chronic pain syndrome 11/23/2024 Telephone [facility] [address] [place] [address] Name, MD Surinder Durable Medical Equipment 11/23/2024 Telephone [facility] [place] [address] Name, MD Surinder BP APPT 11/23/2024 Results Follow-Up [facility] [place] Brooks [phone] NameSurinder MD Comprehensive Metabolic Panel, Lipid Panel, Standard, Vitamin B12, TSH W/Reflex to FT4 11/06/2024 Refill [facility] [place] [address] NameSurinder MD 10/28/2024 10:30 AM EDT Office Visit [facility] [place] [address] Name, MD Surinder Essential hypertension (Primary Dx); Lumbar and sacral arthritis; Lumbar radiculitis; S/P insertion of spinal cord stimulator; Depression, unspecified depression type; Stress incontinence of urine; Cobalamin deficiency; Hypothyroidism, unspecified type 10/28/2024 Travel 10/15/2024 Refill [facility] [place] [address] Surinder Berry MD 10/07/2024 Refill [facility] [place] [address] NameSurinder MD Hypothyroidism, unspecified type from Last 3 Months Immunizations Immunization Administration Dates Next Due Hep A, Adult [...] Sign Reading Time Taken Comments Blood Pressure 140/72 10/28/2024 10:42 AM EDT Pulse 87 10/28/2024 10:42 AM EDT Temperature 36.6 C (97.8 F) 10/28/2024 10:42 AM EDT Respiratory Rate 12 10/28/2024 10:42 AM EDT Oxygen Saturation 98% 10/28/2024 10:42 AM EDT Inhaled Oxygen Concentration - - Weight 77 kg (169 lb 12.8 oz) 10/28/2024 10:42 A M EDT Height 149.9 cm (4' 11 ) 10/28/2024 10:42 AM EDT Body Mass Index 34.3 10/28/2024 10:42 AM EDT Plan of Treatment Upcoming Encounters Date Type Department Care Team (Late st Contact Info) Description 12/27/2024 8:00 AM EST Office Visit [facility] [address] [place] [address] María Pace [address] [place] [address] [phone] Health Maintenance Due Date Last Done Comments CT Colonography 1960 FIT DNA/Cologuard 1960 FIT 1960 FOBT 1960 Sigmoidoscopy 1960 Alcohol/Substance Use Screening 1970 RSV Patients and Patients Aged 60 years or older (1 - Risk 60-74 years 1-dose series) 2018 Dental Oral Exam 12/23/2024 06/21/2024, , 05/03/2022 Dental Prophylaxis 12/23/2024 06/21/2024, 1 02/13/2023, 06/11/2023 Mammogram 02/08/2025 02/09/2024, 01/11, 01/30/2022, Additional history exists Depression Monitoring 04/28/2025 10/29/2024, 025 Dental X-Ray: Bitewings 06/22/2025 06/22/19, 06/21/2024, 05/29/2023, Additional history exists SDOH Screening 10/28/2025 10/28/2024 Tobacco Screening 10/28/2025 10/28/2024 HPV/Cotest 05/09/2027 05/08/2022, 04/16/2017 Pap Smear 05/09/2027 05/08/2022, 04/16/2017 Dental X-Ray: Full Mouth 06/23/2027 06/21/2024, 05/11 Lipid Panel 10/28/2029 10/28/2024, 02/11, 05/04/2021 Colonoscopy 01/20/2030 01/21/2020, 08/01/2009 Colorectal Cancer Screening 01/20/2030 DTaP/Tdap/Td Vaccines (3 - Td or Tdap) 11/01/2031 10/31/2021, 10/09/2010, 12/24/2005 Hepatitis B Vaccines Completed 03/02/2008, 10/02/2007, 09/06/2007 Hepatitis A Vaccines Aged Out 06/25/2012, 12/16/19 12 No longer eligible based on patient's age to complete this topic Zoster Vaccines Completed 12/24/2019, 04/22/2019 Pneumococcal Vaccine: 50+ Years Completed 05/01/2023, 09/22/2018 Hepatitis C Screening Completed 02/03/2024 COVID-19 Vaccine Completed 10/28/2024, 04/2024, 12/07/2021, Additional history exists Influenza Vaccine Completed 10/28/2024, , 11/29/2022, Additional history exists HIB Vaccines Aged Out No longer eligi ble based on patient's age to complete this topic HPV Vaccines Aged Out No longer eligi ble based on patient's age to complete this topic IPV Vaccines Aged Out No longer eligi ble based on patient's age to complete this topic Meningococcal B Vaccine Aged Out No l onger eligible based on patient's age to complete this topic Meningococcal Vaccine Aged Out No sepideh chong eligible based on patient's age to complete this topic RSV under 20 months Aged Out No longe r eligible based on patient's age to complete this topic Rotavirus Vaccines Aged Out No longer eligible based on patient's age to complete this topic Procedures Procedure Name Priority Date/Time Associated Diagnosis Comments ALBUMIN, RANDOM URINE W/CREATININE Routine 10/28/2024 11:27 AM EDT TSH W/REFLEX TO FT4 Routine 10/28/2024 1 1:27 AM EDT Hypothyroidism, unspecified type LIPID PANEL, STANDARD Routine 10/28/2024 11:27 AM EDT Essential hypertension COMPREHENSIVE METABOLIC PANEL Routine 10/28/2024 11:27 AM EDT Essential hypertension VITAMIN B12 Routine 10/28/2024 11:22 AM EDT Cobalamin deficiency PROPHYLAXIS - ADULT Routine 06/21/2024 8 :00 AM EDT INTRAORAL - COMPLETE SERIES OF RADIOGRAPHIC IMAGES Routine 06/21/2024 8:00 AM EDT PERIODIC ORAL EVALUATION - ESTABLISHED PATIENT Routine 06/21/2024 8:00 AM EDT BI MAMMOGRAM SCREENING TOMOSYNTHESIS LEFT Routine 02/09/2024 8:45 AM EST HEPATITIS C AB W/REFL TO HCV RNA, QN, PCR Routine 02/03/2024 9:29 AM EST Need for hepatitis C screening test IMAGE-GUIDED PAP W/AGE BASED SCR PROTOCOLS Routine 05/08/2022 11:07 AM EDT Routine cervical smear HM COLONOSCOPY Routine 01/21/2020 from Last 3 Months or Most Recently Relevant to Health Maintenance Results * TSH W/Reflex to FT4 (10/28/2024 11:27 AM EDT) TSH reflex Free T4 2.41 0.32 - 4.0 uIU/mL [facility] Blood Venous blood specimen / Unknown 10/28/2024 11:27 AM EDT 10/28/2024 1:08 PM EDT us Surinder Berry MD LAB BLOOD ORDERABLES Final Resul t Performing Organization Address [facility] de Phone Number [facility] [address] [place] [phone] * Albumin, Random Urine W/Creatinine (10/28/2024 11:27 AM EDT) Creatinine, Urine 203.81 mg/dL [facility] Microalbumin Urine 9.0 mg/L [facility] Microalbum Creatinine Ratio Ur 4.4 <30 ug/mg cr [facility] Comment:Albumin/Creatinine R atio Reference Ranges: Normal: < 30 ug/mg creatinine Microalbuminuria: 30 - 300 ug/mg creatinineClinical Albuminuria: > 300 ug/mg creatinine 10/28/2024 11:2 7 AM EDT 10/28/2024 1:25 PM EDT us Surinder Berry MD LAB URINE ORDERABLES Final Resul t Performing Organization Address [facility] Co de Phone Number [facility] [address] [place] [phone] * (ABNORMAL) Lipid Panel, Standard (10/28/2024 11:27 AM EDT) Triglycerides 180(H) <150 mg/dL [facility] Comment:Desirable Triglyceri de: less than 150 mg/dLBorderline High Triglyceride 150-199 mg/dLHigh Triglyceride: 200-499 mg/dLVery High Triglyceride: greater than or equal to 5OO mg/dL Cholesterol 174 <200 mg/dL [facility] Comment:Desirable Cholestero l: less than 200 mg/dLBorderline High Cholesterol: 200-239 mg/dLHigh Cholesterol: greater than 239 mg/dL LDL Cholesterol Calculated 71 <100 mg/dL [facility] Comment:Desirable LDL: less than 100 mg/dLNear Optimal/Above Optimal LDL: 110- 129 mg/dLBorderline High LDL: 130-159 mg/dLHigh LDL: 160-189 mg/dLVery High LDL: greater than or equal to 190 mg/dL HDL Cholesterol 67 >40 mg/dL [facility] Comment:Desirable HDL: great er than 40 mg/dL Note: This HDL assay may give artificially low results in patients with liver disease. Blood Venous blood specimen / Unknown 10/28/2024 11:27 AM EDT 10/28/2024 1:08 PM EDT us Surinder Name MD LAB BLOOD ORDERABLES Final Resul t [facility] [address] [place] [phone] * (ABNORMAL) Comprehensive Metabolic Panel (10/28/2024 11:27 AM EDT) Sodium 144 135 - 145 mmol/L [facility] Potassium 4.1 3.3 - 5.1 mmol/L [facility] Chloride 108 96 - 108 mmol/L [facility] Carbon Dioxide 29 22 - 29 mmol/L [facility] Anion Gap 11(L) 12 - 20 [facility] Urea Nitrogen (BUN) 19(H) 9 - 16 mg/dL [facility] Creatinine, Serum 1.10 0.5 - 1.4 mg/dL [facility] Estimated Glomerular Filt Rate 50 [facility] Comment:Chronic Kidney Disea se: Estimated GFR < 60 mL/min/1.70l1Djkrxy Kidney Disease: Estimated GFR < 15 mL/min/1.73m2 Glucose 87 60 - 115 mg/dL [facility] Calcium 8.9 8.4 - 10.2 mg/dL [facility] Bilirubin, Total 0.3 0.0 - 1.0 mg/dL [facility] Aspartate Amino Transferase 29 5 - 31 U/L [facility] Alanine Aminotransferase 25 0 - 31 U/L [facility] Total Protein 7.2 6.5 - 8.0 g/dL [facility] Albumin Level 4.1 3.5 - 5.0 g/dL [facility] Alkaline Phosphatase 77 39 - 117 U/L [facility] Blood Venous blood specimen / Unknown 10/28/2024 11:27 AM EDT 10/28/2024 1:08 PM EDT Surinder Berry MD LAB BLOOD ORDERABLES Final Resul t Performing Organization Address [facility] de Phone Number [facility] [address] [place] [address] [phone] * (ABNORMAL) Vitamin B12 (10/28/2024 11:22 AM EDT) Vitamin B12 934(H) 200 - 900 pg/mL [facility] Comment:NORMAL 200-900 PG/ML INDETERMINATE 160-199 PG/ML DEFICIENT < 160 PG/ML Blood Venous blood specimen / Unknown 10/28/2024 11:22 AM EDT 10/28/2024 12:51 PM EDT Surinder Berry MD LAB BLOOD ORDERABLES Final Resul t Performing Organization Address [facility] de Phone Number [facility] [address] [place] [phone] * BI Mammogram Screening Tomosynthesis Left (02/09/2024 8:45 AM EST) Anatomical Region Laterality Modality Breast Left Mammography 02/09/2024 8:45 AM EST Narrative 02/21/2024 9:41 AM EST [facility] [address] [place] [address] Mammography Report Signed with Makayla Patient: Kristina Saravia MR#: [id number] : 1960 Acct:[id number] Age/Sex: 63 / F ADM Date: 02/09/24 Loc: KARY[facility] Attending Dr: Surinder Berry MD Ordering Physician: Surinder Berry MD Results: 1Negative Date of Service: 02/09/24 Follow Up: 1 Year From Orig inal Mammogram Procedure(s): MM tomosynthesis screening LT Accession Number(s): [id number] cc: Surinder Berry MD ADDENDUM ADDENDUM #1 ADDENDUM: The current mammogram has been reviewed and remains BI-RADS as follows OVERALL ASSESSMENT: BI-RADS 1 - Negative RECOMMENDATION: 1 year F/U Electronically signed by: Ashely Hu DO 02/25/2024 01:47 PM EST RP Addendum Dictated By: Ashely Hu DO Addendum Signed By: <Electronically signed by Ashely Hu DO in OV> 02/25/24 1347 Addendum Cosigned By: [...] Hu DO in OV> 02/25/24 1347 DD/ 4 TD/TT: 02/09/24899 Sales Merchandising Specialist: Procedure Note Donotuseinterpreter, Image - 03/07/2024 [facility] [address] [place], [place] [address] Mammography Report Signed with Addenda Patient: Bharath Saravia#: [id number] : 9Acct:[id number] Age/Sex: 63 / FADM Date: 02/09/24 Loc: HO.MAMMO Attending Dr: Surinder Berry MD Ordering Physician: Surinder Berryesults: 1Negative Date of Service: 02/09/24Follow Up: 1 Year From Orig inal Mammogram Procedure(s): MM tomosynthesis screening LT Accession Number(s): [id number] cc: Surinder Berry MD ADDENDUM ADDENDUM #1 ADDENDUM: The current mammogram [...] in OV> 02/25/24 1347 DD/ 0845 TD/TT: 12/30/24 0900 Sales Merchandising Specialist: us Surinder Name MD ANROLD BI PROCEDURES Edited Result - Final * Hepatitis C Antibody with Reflex to HCV, RNA, Quantitative, Real-Time PCR (02/03/2024 9:29 AM EST) Hepatitis C Antibody Nonreactive Nonreactive [facility] Comment:Antibodies to HCV no t detected; does not exclude early acuteHCV infection. Blood Venous blood specimen / Unknown 02/03/2024 9:29 AM EST 02/03/2024 11:02 AM EST us Surinder Name LAB BLOOD ORDERABLES Final Resul t [facility] [address] [place] [phone] * Image-Guided Pap with Age-Based Screening Protocols (05/08/2022 11:07 AM EDT) Comment [facility] Comment: This order for age-based cervical cancer and STI screening follows ACOG guidelines(PB 168, 140, XAN733). See individual assays for performing site location. Clinical Information: None given [facility] LMP: NONE GIVEN [facility] Prev. PAP: NONE GIVEN [facility] Prev. BX: NONE GIVEN [facility] SOURCE: None given [facility] Statement Of Adequacy: [facility] Comment: Satisfactory for evaluation. Endocervical/transformation zone component absent. Interpretation/ Result: Negative for intraepithelial lesion or malignancy. [facility] COMMENT: This Pap test has been evaluated with computer assisted technology. [facility] Cytotechnologis t: [facility] Comment: SXA, CT(ASCP) CT screening location: [address] [address] (Always Message) [facility] Comment: EXPLANATORY NOTE: The Pap is a [...] HPV nRNA E6/E7 Not Detected Not Detected [facility] [place] [employer] [facility] Comment: Methodology: Biophysics Professor-Mediated Amplification This assay detects E6/E7 viral messenger RNA (mRNA) from 14 high-risk HPV types (16,18,31,33,35,39,45,51,52,56,58,59,66,68). Cervical sources are required for HPV testing. If a vaginal source from a patient who has had a total hysterectomy with removal of cervix was submitted, please contact the testing laboratory for alternative testing options. For additional information, please refer to http://education.[address]/faq/UOO179y2 (This link if provided for information/ educational purposes only.) Cytology specimen container (physical object) 05/08/2022 11:07 AM EDT 05/09/2022 2:04 AM EDT Marycruz Sharp CNM LAB BLOOD ORDERABLES Adelita l Result [facility] [address], [place] [address] [facility] [address] [place] [address] * Colonoscopy (01/21/2020) Colonoscopy Normal Normal Comment:to be repeated in 10 yrs Historical Provider MD HEALTH MAINTENANCE Final Result from Last 3 Months or Most Recently Relevant to Health Maintenance Insurance [employer] (HMO D-SNP) D[facility]AL - [facility] Advance Directives Documents on File Type Date Recorded Patient Soldering Machine Feeder Expl anation Power of Food Packer 04/30/2023 Power of A ttorney Care Teams Ground Operations Crew Member Relationship Specialty Start Date End Date Name, MD Surinder [address] [place] [address] PCP - General Family Medicine 04/12/15
--- OUTSIDE RECORDS SUMMARY | 2024-12-10 08:18 | XMS_ITS | Encounter Summary ---
Author Organization [employer] Address [address] [facility] [address] [place] [address] Care Team Providers Care Senior Hr Manager Name Role Phone Name, Surinder MCDANIEL Primary Care Provider [phone] Encounter Details Date Type Department Care Team (Late Contact Info) Description 10/03/2022 Orders Only [facility] [address] [place], [place] [phone] Nadja Vanegas LPN Social History Tobacco Use [...] Description 12/27/2024 8:00 AM EST Office Visit [facility] [address] [place] [address] María Pace [address] [place] [address] documented as of this encounter Visit Diagnoses Not on filedocumented in this encounter Additional Health Concerns Assessment Noted Time PHQ-9 Depression Total Score: 3 05/31/19 23 9:20 AM EDT documented as of this encounter Care Teams Senior Hr Manager Relationship Specialty Start Date End Date Name, MD Surinder [address] [place] [address] PCP - General Family Medicine 04/12/15 documented as of this encounter
== END 2024-12-10 08:11 | disposition home or self-care (01) ==
LOC: HO.XRAY 08:10
PROVIDERS: PCP Internal Medicine Geriatric Medicine; Visit Provider Internal Medicine Geriatric Medicine
DX: R13.10 Dysphagia, unspecified (principal)
CPT/HCPCS: 74220

== ENCOUNTER → 2024-12-10 08:12 | Outpatient (BNV) | payer OTHER, SELFPAY | PROVIDERS: PCP Internal Medicine Geriatric Medicine; Visit Provider Radiology Diagnostic Radiology | DX: R13.10 Dysphagia, unspecified (principal) | CPT/HCPCS: 74221 ==